=== PATIENT | female | born 2005 | race Caucasian/White ===

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

== ENCOUNTER 2024-04-24 13:00 | Outpatient (REF) | payer MEDICAID, SELFPAY ==
[2024-04-24 14:04] LABS: Hematocrit 35.9 % (37.0-47.0); Hemoglobin 12.7 g/dl (12.0-16.0); Mean Corpuscular HGB Conc 35.4 g/dl (31.0-35.0); Mean Corpuscular Hemoglobin 30.1 pg (27.0-33.0); Mean Corpuscular Volume 85.1 fL (80.0-98.0); Mean Platelet Volume 10.9 fL (9.4-12.3); Platelet Count 269 X10*3/uL (160-400); Red Blood Count 4.22 X10*6/uL (4.20-5.50); Red Cell Distribution Width 12.2 % (11.0-16.0); White Blood Count 9.6 X10*3/uL (4.8-10.8)
[2024-04-24 14:29] LABS: Anion Gap 12 (12-20); Blood Urea Nitrogen 11 mg/dL (9-16); Calcium 9.7 mg/dL (8.4-10.2); Carbon Dioxide 23 mmol/L (22-29); Chloride 110 mmol/L (96-108); Estimated Glomerular Filt Rate > 60; Glucose Random 82 mg/dL (60-115); Magnesium 1.8 mg/dL (1.6-2.6); Sodium 141 mmol/L (135-145)
[2024-04-24 14:41] LABS: TSH reflex Free T4 1.11 uIU/mL (0.32-4.0)
--- OUTSIDE RECORDS SUMMARY | 2024-04-24 16:48 | XMS_ITS | Clinical Summary ---
Author Organization [facility] Address [address] [place] [address] Care Team Providers Care Main Line Station Engineer Name Role Phone Farrukh Wooten MD Primary Care Provider [phone] Source Comments Please note that some or [...] obtain the minor's consent prior to disclosure.[facility] Allergies No known active allergies Medications [...] 08/20/2021 3:0 0 PM EDT Growth Chart: [facility] (Girls, 2- 20 Years) Plan of Treatment Health Maintenance Due Date Last Done Comments DTaP/TDAP/TD VACCINES (1 - Tdap) 08/04/2011 ADOLESCENT HIV SCREENING 2017 COVID-19 Vaccine ( - 2023-2 5 season) 2023 INFLUENZA (#1) 2023 NIRSEVIMAB VACCINES UNDER 8 MONTHS Aged Out No longer eligible based on patient's age to complete this topic Insurance [facility] MEDICAID Care Teams Main Line Station Engineer Relationship Specialty Start Date End Date Farrukh Wooten MD [address] [place] [phone] PCP - General General Pediatrics 05/14/21
--- OUTSIDE RECORDS SUMMARY | 2024-04-24 16:48 | XMS_ITS | Encounter Summary ---
Author Organization [employer] [facility] Address [address] [facility] 7t [place] [address] Care Team Providers Care Prizer Hand Name Role Phone Liane Silva NP Primary Care Provider [phone] Reason for Visit * Reason Comments Med Refill Encounter Details Date Type Department Care Team ([facility] st Contact Info) Description 02/23/2023 Refill [facility] MEDICINE [address] [place] [address] Liane Silva NP [address] [place] [address] Neck pain Social History Tobacco Use Types [...] documented as of this encounter Care Teams Prizer Hand Relationship Specialty Start Date End Date Liane Silva NP [address] [place] [address] PCP - General Family Medicine 12/08/22 documented as of this encounter
--- OUTSIDE RECORDS SUMMARY | 2024-04-24 16:48 | XMS_ITS | Encounter Summary ---
Author Organization [employer] Address [address] [facility] [facility] [address] 7t [place] [address] Care Team Providers Care Record Librarian Name Role Phone Liane Silva NP Primary Care Provider [phone] Encounter Details Date Type Department Care Team ([facility] st Contact Info) Description 03/30/2024 Telephone [facility] MEDICINE [address] [place] [address] Liane Silva NP [address] [place] [address] Social History Tobacco Use Types Packs/Day Years [...] note were not included. Call returned to [facility] to triage below. Reports all of the [...] site visits > 48hours in advance. Reviewed [facility] hours for Tuesday or to return call [...] become worse Bridger Madrid routed conversation to [facility] Triage Nurse33 minutes ago (9:33 AM) Joshua Valente [facility] Clinical Support (supporting Liane Silva NP)9 [...] documented as of this encounter Care Teams Record Librarian Relationship Specialty Start Date End Date Liane Silva NP [address] [place] [address] PCP - General Family Medicine 12/08/22 documented as of this encounter
--- OUTSIDE RECORDS SUMMARY | 2024-04-24 16:48 | XMS_ITS | Clinical Summary ---
Author Organization [employer] Address [address] [facility] 7t [place] [address] Care Team Providers Care Artists' Model Name Role Phone Liane Silva NP Primary Care Provider [phone] Allergies No known active allergies Medications aspirin-acetamin [...] shoulder pain -seen by rheumatology in 2021. Carding Doubler not certain about arthritis dx. No swollen [...] Type Department Care Team Description 03/30/2024 Telephone [facility] MEDICINE [address] [place] [phone] Liane Silva NP 02/02/2024 3:30 PM EST Office Visit [facility] ADULT DENTAL [address] [place] [address] Kee-Lord, Lupe, DDS TMJ locking (Primary Dx) 02/01/2024 Telephone [facility] ADULT DENTAL [address] [place] [address] Kee-Lord, Lupe, DDS from Last 3 Months [...] T4 (04/24/2024 2:00 PM EDT) Pathologist [facility] TSH reflex Free T4 1.11 0.32 - 4.0 uIU/mL [facility] 04/24/2024 2:00 PM EDT 04/24/2024 2:00 PM EDT us Generic External Data Provider LAB BLOOD ORDERAB LES Final Result [facility] [address] [place] [phone] * (ABNORMAL) CBC (04/24/2024 2:00 PM EDT) Pathologist [facility] White Blood Count 9.6 4.8 - 10.8 X10*3/uL [facility] Red Blood Count 4.22 4.20 - 5.50 X10*6/uL [facility] Hemoglobin 12.7 12.0 - 16.0 g/dl [facility] Hematocrit 35.9(L) 37.0 - 47.0 % [facility] Mean Corpuscular Volume 85.1 80.0 - 98.0 fL [facility] Mean Corpuscular Hemoglobin 30.1 27.0 - 33.0 pg [facility] Mean Corpuscular HGB Conc 35.4(H) 31.0 - 35.0 g/dl [facility] Red Cell Distribution Width 12.2 11.0 - 16.0 % [facility] Platelet Count 269 160 - 400 X10*3/uL [facility] Mean Platelet Volume 10.9 9.4 - 12.3 fL [facility] NRBC Pct Auto 0.0 0.0 - 0.2 /100WBC [facility] NRBC Abs Auto 0.000 0.0 - 0.012 X10*3/uL [facility] 04/24/2024 2:00 PM EDT 04/24/2024 2:00 PM EDT Generic External Data Provider LAB BLOOD ORDERAB LES Final Result Performing Organization Address [facility] Co de Phone Number [facility] [address] [place] [phone] * Magnesium (04/24/2024 2:00 PM EDT) Pathologist [facility] Magnesium 1.8 1.6 - 2.6 mg/dL [facility] 04/24/2024 2:00 PM EDT 04/24/2024 2:00 PM EDT Generic External Data Provider LAB BLOOD ORDERAB LES Final Result Performing Organization Address [facility] de Phone Number [facility] [address] [place] [phone] * (ABNORMAL) Basic Metabolic Panel (04/24/2024 2:00 PM EDT) Pathologist [facility] Sodium 141 135 - 145 mmol/L [facility] Potassium 4.0 3.3 - 5.1 mmol/L [facility] Chloride 110(H) 96 - 108 mmol/L [facility] Carbon Dioxide 23 22 - 29 mmol/L [facility] Anion Gap 12 12 - 20 [facility] Urea Nitrogen (BUN) 11 9 - 16 mg/dL [facility] Creatinine, Serum 0.61 0.5 - 1.4 mg/dL [facility] Estimated Glomerular Filt Rate >60 [facility] Comment:Chronic Kidney Disea se: Estimated GFR < 60 mL/min/1.40k5Rlrmop Kidney Disease: Estimated GFR < 15 mL/min/1.73m2 Glucose 82 60 - 115 mg/dL [facility] Calcium 9.7 8.4 - 10.2 mg/dL [facility] 04/24/2024 2:00 PM EDT 04/24/2024 2:00 PM EDT us Generic External Data Provider LAB BLOOD ORDERAB LES Final Result Performing Organization Address City/State/[facility] Co de Phone Number [facility] [address] [place] [address] [phone] from Last 3 Months Insurance [facility] STAND CHILD D[facility]AL-[facility] MEDICAID STAND CHILD Care Teams Artists' Model Relationship Specialty Start Date End Date Liane Silva NP [address] [place] [address] PCP - General Family Medicine 12/08/22
--- OUTSIDE RECORDS SUMMARY | 2024-04-24 16:48 | XMS_ITS | Encounter Summary ---
Author Organization [employer] Address [address] 7t [place] [address] Care Team Providers Care Executive Director Name Role Phone Liane Silva NP Primary Care Provider [phone] Encounter Details Date Type Department Care Team ([facility] st Contact Info) Description 01/26/2023 Abstract [facility] MEDICINE [address] [place] [address] Liane Silva NP [address] [place] [address] Social History Tobacco Use Types Packs/Day Years [...] documented as of this encounter Care Teams Executive Director Relationship Specialty Start Date End Date Liane Silva NP [address] [place] [address] PCP - General Family Medicine 12/08/22 documented as of this encounter
--- OUTSIDE RECORDS SUMMARY | 2024-04-24 16:48 | XMS_ITS | Encounter Summary ---
Author Organization [employer] Address [address] [place] [address] Care Team Providers Care Comic Book Writer Name Role Phone Liane Silva NP Primary Care Provider [phone] Encounter Details Date Type Department Care Team ([facility] st Contact Info) Description 02/10/2023 Abstract [facility] ADULT DENTAL [address] [place] [address] Brian Jones, DMD [address] [place] [address] Social History Tobacco Use Types Packs/Day Years [...] documented as of this encounter Care Teams Comic Book Writer Relationship Specialty Start Date End Date Liane Silva NP [address] [place] [address] PCP - General Family Medicine 12/08/22 documented as of this encounter
--- OUTSIDE RECORDS SUMMARY | 2024-04-24 16:48 | XMS_ITS | Encounter Summary ---
Author Organization [employer] [facility] Address [address] [facility] 7t [place] [address] Care Team Providers Care Sorter Pricer Name Role Phone Liane Silva NP Primary Care Provider [phone] Reason for Visit * Reason Onset Date Comments Nurse Triage 12/17/2022 Encounter Details Date Type Department Care Team ([facility] st Contact Info) Description 12/17/2022 Telephone [facility] MEDICINE [address] [place] [address] Liane Silva NP [address] [place] [address] Nurse Triage Social History Tobacco Use Types [...] Called pt. No answer. Left message on [phone] to please call back [facility] nurses at [phone]. RE: Neck pain. Called alternate number [phone]. Mother answered phone. Pt. Suffers from migraines but, on the back of pt. Neck is hurting on the back of her neck. Pt. Has not done any neck stretching exercises and Tylenol and Motrin not helping. * Telephone Encounter - Estefany Farley - 12/17/2022 2:05 PM EDT Tc from [place] returning call and requesting a call back. * Telephone Encounter - Daria Spann RN - 12/17/2022 1:52 PM EDT Call returned to Joshua Madrid for triage. No answer LVM to return call to [facility] triage line [phone]. Mom not on HIPAA. * Telephone Encounter [...] documented as of this encounter Care Teams Sorter Pricer Relationship Specialty Start Date End Date Appram, Liane, RESIDENTIAL FINISH CARPENTER [address] [place] [address] PCP - General Family Medicine 12/08/22 documented as of this encounter
--- OUTSIDE RECORDS SUMMARY | 2024-04-24 16:48 | XMS_ITS | Encounter Summary ---
Author Organization [employer] Address [address] [facility] 7[address] [place] [address] Care Team Providers Care Physician Office Clin Asst Name Role Phone Liane Silva NP Primary Care Provider [phone] Encounter Details Date Type Department Care Team ([facility] st Contact Info) Description 02/24/2023 Abstract [facility] MEDICINE [address] [place] [address] Liane Silva NP [address] [place] [address] Social History Tobacco Use Types Packs/Day Years [...] documented as of this encounter Care Teams Physician Office Clin Asst Relationship Specialty Start Date End Date Liane Silva NP [address] [place] [address] PCP - General Family Medicine 12/08/22 documented as of this encounter
--- OUTSIDE RECORDS SUMMARY | 2024-04-24 16:48 | XMS_ITS | Encounter Summary ---
Author Organization [employer] Address [address] [place] [address] Care Team Providers Care White Shoe Ragger Name Role Phone Liane Silva NP Primary Care Provider [phone] Encounter Details Date Type Department Care Team ([facility] st Contact Info) Description 02/24/2023 Abstract [facility] MEDICINE [address] [place] [address] Liane Silva NP [address] [place] [address] Social History Tobacco Use Types Packs/Day Years [...] documented as of this encounter Care Teams White Shoe Ragger Relationship Specialty Start Date End Date Liane Silva NP [address] [place] [address] PCP - General Family Medicine 12/08/22 documented as of this encounter
[2024-04-30 23:44] LABS: Metanephrine, Free <25 pg/mL (<=57); Normetanephrines, Free 72 pg/mL (<=148); Total Metanephrine, Free 72 pg/mL (<=205)
== END 2024-04-24 13:01 | disposition home or self-care (01) ==
LOC: HO.LAB 13:00
PROVIDERS: PCP Nurse Practitioner; Visit Provider Internal Medicine Cardiovascular Disease
DX: R00.2 Palpitations (principal)
CPT/HCPCS: 36415; 80048; 83735; 83835; 84443; 85027; 93005; 99202

== ENCOUNTER 2024-04-24 13:00 | Outpatient (AMB) | payer MEDICAID, SELFPAY ==
[2024-04-24 13:09] VITALS: BP 110/70; PULSE 93; BMI 32.7
--- NOTE | 2024-04-24 13:09 | MHC.OFFVIS ---
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 Patient was 18-year-old female who has for many he has been having symptoms of palpitations. She says she gets symptoms about 3 times a week when she starts feeling skipped heartbeats. This is associated with dizziness and sometimes shortness of breath. She gets anxious and sometimes gets more symptoms. She had a Holter monitor few years ago and was told that she did not have any significant arrhythmias although I do not have a copy of those reports. Patient also says she has been experiencing chest pain which is sharp stinging chest pain Stepan further inquiry says that she feels this sharp stinging chest pain followed by rapid heart rate or irregular heartbeat and she gets anxious and then sometimes gets more shortness of breath and chest discomfort with it. Has no clear triggering factors except for when she is working and sometimes busy at work should get the symptoms. She says this symptoms at any times including with exertion or at rest. She was no symptoms of orthopnea, PND, leg edema. No actual syncopal episodes. She is currently not on medications. She denies any significant caffeine, alcohol, smoking or any other drug use. [facility] Medical History Rheumatoid arthritis Family History Father No problems noted. Mother No problems noted. Social History Patient Tobacco Use Status: Never used Tobacco Review of Systems Const Denies chills, Denies daytime sleepiness, Denies fatigue, Denies fever(s), Denies frequent falls, Denies poor appetite, Denies snoring, Denies stops breathing during sleep, Denies weakness, Denies weight gain and Denies weight loss Eyes Denies loss of vision ENT Denies dizziness and Denies hearing loss Card Reports chest pain, Denies claudication, Denies leg edema, Denies lightheadedness, Reports palpitations, Denies dyspnea, Denies dyspnea on exertion and Denies orthopnea Resp Denies cough, Denies excessive phlegm production, Denies dyspnea, Denies dyspnea on exertion, Denies snoring and Denies wheezing GI Denies abdominal pain, Denies hematochezia, Denies change in bowel habits, Denies nausea and Denies vomiting Denies urinary frequency and Denies dysuria Musc Denies arthralgias, Denies muscle weakness, Denies numbness and Denies other (frequent falls) Skin/Breast Denies nail changes and Denies rash Neuro Denies Abnormal speech present, Denies dizziness, Denies frequent falls, Denies loss of vision, Denies memory loss, Denies numbness and Denies weakness Psych Denies depression and Denies memory loss Endo Denies fatigue and Reports palpitations Brandon/Lymph Reports easy bruising and Reports other (anemia) Aller/Immun Denies wheezing Physical Exam Vital Signs: Last Vital Signs Pulse 93 04/24/24 13:09 BP 110/70 04/24/24 13:09 BMI result Body Mass Index 32.7 Const General: cooperative, comfortable, no acute distress, alert, awake and Physically active Nutritional Appearance: overweight Orientation/consciousness: patient oriented x3 Limitations: no limitations HEENT Head: Yes normocephalic and Yes atraumatic Neck Neck: Yes trachea midline, Yes supple and Yes no JVD Resp Effort & Inspection: normal respiratory effort Auscultation: clear to auscultation bilaterally Cardio Jugular venous distension: no JVD Palpation: normal PMI Rate: regular rate Rhythm: regular rhythm Heart sounds: S1 normal heart sound present, S2 normal heart sound present, no click, no gallops, no murmurs and no rubs GI Auscultation: normal bowel sounds Skin General skin exam: no rashes or lesions noted Neuro General: patient oriented x3, no focal motor deficits and other (Some tremors noted) Speech: No Abnormal speech present Extrem General: Yes no clubbing, cyanosis or edema Psych Appearance: grossly normal Affect: Anxious affect present Office Procedures EKG Details: EKG shows normal sinus rhythm with nonspecific ST changes with no QT prolongation pre-excitation. [id number], Complete Assessment & Plan Assessment & Plan (1) Palpitations: Code(s): R00.2 - Palpitations Category: Medical Plan: Symptoms of palpitation which are most concerning and present for many years. Symptoms sound like she might be having extra systoles such as PVCs and PACs which are highly symptomatic. Her chest pain syndrome also seems to be in association with palpitations. I discussed with her that it is extremely unlikely for her to have any coronary artery disease or myocardial ischemia. 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 It is possible that this might be related to stress/anxiety although she declines being anxious. Will check for baseline hormonal imbalance with TSH and/or metanephrine levels. Also check baseline labs. Would suggest a 30 day event monitor to assess for her symptoms and correlate with the symptoms she has been getting if she was having any significant arrhythmias. Also obtain echocardiogram to evaluate for structure of the heart. Further treatment based on the findings. She was advised to avoid stimulants. Stress mitigation strategies discussed. Will follow up in the clinic in 2 months time, sooner p.r.n.. Thank you for allowing me to partake in his care Orders: Orders Magnesium Today R00.2 - Palpitations Complete Blood Count no Diff Today R00.2 - Palpitations ECG 30 day event monitor Today R00.2 - Palpitations Basic Metabolic Panel Today R00.2 - Palpitations TSH reflex Free T4 Today R00.2 - Palpitations Metanephrines, Plasma Today R00.2 - Palpitations CA echo transthoracic complete Today R00.2 - Palpitations Coding Level of Care Code New Pt Level 4 (69881) Complex EM visit Add On G2211 Diagnoses Palpitations R00.2 CPT Codes EKG - CPT: 97703-[id number], Complete ([id number])
--- OUTSIDE RECORDS SUMMARY | 2024-04-24 15:43 | XMS_ITS | Clinical Summary ---
Author Organization [employer] Address [address] [facility] 7[address] [place] [address] Care Team Providers Care Professor Of Astronomy Name Role Phone Liane Silva NP Primary Care Provider [phone] Allergies No known active allergies Medications aspirin-acetamin ophen-caffeine (Excedrin Migraine) 250-250-65 MG tablet Take by mouth. Activ e multivitamin (Theragran) tabletIndication s:Encounter for routine child health examination without abnormal findings 1 tab by oral route daily 90 tablet 3 3 Active albuterol 108 (90 Base) MCG/ACT inhalerIndicatio ns:Mild intermittent asthma without complication 2-4 puff by Inhalation route every 4 hours prn ;administer with spacer 18 g 2 3 Active Additional Information Patient not taking.Reported on 04/22/2023 Diclofenac Sodium 1 % gelIndications:N saravanan pain APPLY 1 G TOPICALLY IF NEEDED IN THE MORNING, AT NOON, AND AT BEDTIME (PAIN). 100 g 2 4 Active Additional Information Patient not taking.Reported on 04/22/2023 SUMAtriptan (Imitrex) 25 MG tabletIndication s:Migraine without aura, not intractable, without status migrainosus TAKE 1 TABLET BY MOUTH 1 TIME IF NEEDED FOR MIGRAINE FOR UP TO 9 DAYS. MAY REPEAT DOSE ONCE IN 2 HOURS IF NO RELIEF. DO NOT EXCEED 2 DOSES IN 24 HOURS. 9 tablet 4 Active hydrOXYzine HCl (Atarax) 25 MG tabletIndication s:Chest pain, unspecified type Take 1 tablet (25 mg) by mouth every 8 (eight) hours if needed for anxiety. 90 tablet 4 Active baclofen (Lioresal) 10 MG tabletIndication s:Neck pain, chronic Take one tablet TID PRN 30 tablet 4 Active naproxen (Naprosyn) 500 MG tabletIndication s:Migraine without aura, not intractable, without status migrainosus TAKE 1 TABLET BY MOUTH TWICE A DAY 60 tablet 4 Active Active Problems Problem Noted Date Diagnosed Date Atypical odontalgia 01/05/2024 Chest pain 07/23/2023 Assessment & Plan (07/24/2023 10:01 PM EDT): -low threshold for emergent interventions today as patient is asymptomatic -negative full cardiology work-up 2 years ago -likely related to anxiety based on patient report and medical history -will trial hydroxyzine -consider treatment with PPI for silent GERD if no results achieved with hydroxyzine -continued monitor advised with specific attention to events preceding and duration of pain -advised go to ED with sudden severe or unexplained chest pain that lasts more than a few minutes; sudden sever upper back, neck, or stomach pain. -follow-up 6 weeks Pre-op examination 04/01/2023 Assessment & Plan (04/01/2023 4:37 PM EST): -H&P completed -The incidence of perioperative cardiovascular events varies according to the patient risk profile, patient's functional capacity, and risk of the proposed surgery. Active cardiac conditions that are contraindications to elective surgery: none Cardiac risk by patient profile (RCRI): very low Functional capacity = 1 METS. The patient reports being able to walk up 1 one flight of stairs and 2 blocks without stopping. -Medication list reviewed with patient and up to date. -Hold aspirin and NSAIDs 5 days before surgery Patient was seen for pre-operative evaluation. Patient reports no symptoms of CP at rest or with exertion, dyspnea at rest or with exertion, PND, LE edema, claudication, or palpitations. Patient has no hx of ischemic heart disease, CHF, CVD, diabetes, recent anticoagulant or antithrombotic use, person or family hx of coagulopathy. Patient reports no history of stress test, cardiac cath or coronary revascularization. Patient has no apparent contraindications for scheduled surgery. This patient is at no risk for a low risk procedure. The patient is at acceptable risk for the proposed procedure. Patient may proceed to the O.R. without further testing ? CLEAR.? Normal oral exam 01/27/2023 Assessment & Plan (01/27/2023 5:04 PM EST): -flu vaccine given today -refused STI screen as she is not sexually active -agreeable to HIV and Hepatitis screening Neck and shoulder pain 01/27/2023 Assessment & Plan (01/27/2023 5:09 PM EST): -question its relation to idiopathic juvenile arthritis vs. Cervical radiculopathy -cervical x-ray ordered -rx for topical diclofenac gel sent to pharmacy -gently stretching advised -will f/u following x-ray results -RTC if symptoms worsen Mild intermittent asthma without complication Assessment & Plan (01/27/2023 3:38 PM EST): -stable at this time -medication refill provided for prn use Migraine without aura, not i ntractable, without status migrainosus 05/04/2022 Assessment & Plan (07/24/2023 10:01 PM EDT): -patient advised to discontinue use of topamax given its lack of effects -will start amitriptyline 10 mg daily for prophylaxis -prescription for sumitriptan and naproxen sent to pharmacy for abortive use -encouraged to monitor for headache triggers and avoid them -advised healthy diet and 30 min daily of moderate intensity exercise, gentle yoga, meditation, and minimum 8 hours sleep nightly -headache red flags discussed: report to ED immediately if headache characteristics intensify within 5 mins of onset, if associated with intense nausea and vomiting or confusion -follow-up 6 weeks Assessment & Plan (01/27/2023 4:55 PM EST): -currently taking Excedrin daily with no relief -topamax refilled -advised to keep headache diary, avoid caffeine, exercise daily, and increase fluid intake -f/u 1 month 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 No swollen joints noted today -inflammatory markers ordered -will consider return to rheumatology based on lab results Scoliosis deformity of spine 02/15/2017 Overview (05/06/2022): 13 degree max curve in past Hyperlipidemia 09/01/2016 Obesity 06/01/2011 Assessment & Plan (01/27/2023 5:06 PM EST): -Healthy diet and exercise teaching completed: Eat a variety of fruit and vegetables, whole grains such as whole-wheat flour, bulgur (cracked wheat), oatmeal, and brown rice. Intake protein from beans, nuts, fish, and lean meats. Eat low-fat or fat- free dairy products. Limit highly processed foods such as hot dogs, sandwich meat, etc. Engage in minimum of 150 min of moderate intensity exercise weekly -lipid panel ordered Resolved Problems Problem Noted Date Diagnosed Date Resolved Date Mild persistent asthma 04/29/202205/04 Encounters Date Type Department Care Team Description 03/30/[address] [facility] MEDICINE [address] [place] [address] [phone] Liane Silva NP 02/02/2024 3:30 PM EST Office Visit [facility] ADULT DENTAL [address] [place] [phone] Kee-Lord, Lupe, DDS TMJ locking (Primary Dx) 02/01/[address] [facility] ADULT DENTAL [address] [place] [address] Kee-Lord, Lupe, DDS from Last 3 Months Immunizations Name Administration Dates Next Due DTaP 09/02/2008, 6,04/12/2005,12/21,2004 HPV 9-Valent 02/17/2016,08/26/2015 Hep A, ped/adol, 2 dose 05/21/2008,09/13/2005 Hep B, Adolescent or Pediatric 2004,2004 Hep B, adult 04/12/2005 Hib (HbOC) 11/09/2005,2004,2004 IPV 09/02/2008, 6,2004,10/20 Influenza Whole 12/19/2018 Influenza injectable quadriv alent preservative free 01/26/2023,05/04/2022,04/29/2021,01/20,12/19/2018,11/29/2017,02/17/2016 MMR 09/02/2008,09/13/2005 Meningococcal MCV4P ACYW-135 04/29/2021,08/26/19 Pneumococcal Conjugate PCV 7 11/09/2005, 09/13/2005,04/12/2005,10/20 Tdap 08/26/2015 Varicella 09/02/2008,09/13/2005 Family History Medical History Relation Name Comments Diabetes Brother Hyperlipidemia Mother Relation Name Status Comments Brother Mother Social History Tobacco Use Types Packs/Day Years Used Date Smoking Tobacco: Never Passive Smoke Exposure: Never Smokeless Tobacco: Never Tobacco Cessation:Counseling Given: Not Answered Alcohol Use Standard Drinks/Week Comments Never 0 (1 standard drink = 0.6 oz pur e alcohol) Depression Answer Date Recorded Patient Health Questionnaire-9 Score 0 01/26/2023 Patient Health Questionnaire-9 Score 0 01/26/2023 Last PHQ-9: Questionnaire Data Not on file 1 03/29/2022 Housing Stability Answer Date Recorded What is your housing situation today? I have maryankristen cifuentes 01/19/[address] you li ve. Do you have problems with any of the following? None of the above 01/19/2023 Food Insecurity Answer Date Recorded Within the past 12 months, y ou worried that your food would run out before you got money to buy more: Never True 01/19/2023 Within the past 12 months,th e food you bought just didn't last and you didn't have enough money to get more: Never True 07/2022 Transportation Answer Date Recorded In the past 12 months, has l ack of transportation kept you from medical appts, meetings, work or from getting things needed for daily living? No 01/19/2023 Utilities Answer Date Recorded In the past 12 months, has t he electric, gas, oil or water company threatened to shut off services in your home? No 01/19/2023 Depression Answer Date Recorded Patient Health Questionnaire-2 Score 0 01/26/2023 Comments No Sex and Gender Information Value Date Recorded Sex Assigned at Female 12/14/2021 10:20 AM EDT Legal Sex Female 10:20 AM EDT Gender Identity Female 12/14/2021 10:20 AM EDT Sexual Orientation Straight 12/14/2021 10 :20 AM EDT Last Filed Vital Signs Vital Sign Reading Time Taken Comments Blood Pressure 118/68 01/05/2024 1:12 PM EST Pulse 110 09/30/2023 3:24 PM EDT Temperature 36.8 ??C (98.3 ??F) 04/22/2023 3:20 PM ES T Respiratory Rate 21 09/30/2023 3:24 PM EDT Oxygen Saturation 98% 09/30/2023 3:24 PM EDT Inhaled Oxygen Concentration - - Weight 75.2 kg (165 lb 12.8 oz) 09/30/2023 3:24 PM EDT Height 152.4 cm (5') 04/22/2023 3:20 PM EST Body Mass Index 32.38 04/22/2023 3:20 PM EST Plan of Treatment Health Maintenance Due Date Last Done Comments Chlamydia and Gonorrhea Screening 2004 HIV Screening 2004 Alcohol/Substance Use Screening 2016 Family Planning (PISQ) 08/04/2019 Hepatitis C Screening 2022 Dental Prophylaxis 01/02/2023 07/01/2022, 1 , 06/09/2020, Additional history exists Pneumococcal Vaccine: Pediatrics (0 to 5 Years) and At-Risk Patients (6 to 49) Years) (1 of 2 - PCV) 08/04/2023 11/09/2005, 09/13/2005, 04/12/2005, Additional history exists COVID-19 Vaccine (1 - season) 2023 Influenza Vaccine (#1) 2023 , 05/04/2022, 04/29/2021, Additional history exists Depression Screening 01/27/2024 01/26/2023, 01/27/20 23 SDOH Screening 01/27/2024 01/26/2023 Dental Oral Exam 07/05/2024 01/05/2024, , 12/14/2021, Additional history exists Dental X-Ray: Bitewings 01/05/2025 01/05/20 24, 12/14/2021, 06/09/2020, Additional history exists Tobacco Screening 02/01/2025 02/02/2024 DTaP/Tdap/Td Vaccines (7 - Td or Tdap) 08/25/2025 08/26/2015, 09/02/2008, 11/09/2005, Additional history exists Dental X-Ray: Full Mouth 01/05/2027 024, 11/11/2023, 06/28/2013 Zoster Vaccines (1 of 2) 2054 RSV Patients and Patients Aged 60 years or older (1 - 1-dose 75+ series) 08/04/2079 Hepatitis B Vaccines Completed 04/12/2005, 2004, 2004 HIB Vaccines Completed 11/09/2005, 08/2004, 2004 Hepatitis A Vaccines Completed 05/21/2008, 09/14/19 IPV Vaccines Completed 09/02/2008, 03/18, 2004, Additional history exists MMR Vaccines Completed 09/02/2008, 09/13/2005 Varicella Vaccines Completed 09/02/2008, 09/13/2005 HPV Vaccines Completed 02/17/2016, 08/26/2015 Meningococcal Vaccine Completed 04/29/2021, 016 Fluoride Varnish Discontinued 07/01/2022, , 06/09/2020, Additional history exists RSV under 20 months Aged Out No longe r eligible based on patient's age to complete this topic Rotavirus Vaccines Aged Out No longer eligible based on patient's age to complete this topic Procedures Procedure Name Priority Date/Time Associated Diagnosis Comments TSH W/REFLEX TO FT4 Routine 04/24/2024 2 :00 PM EDT MAGNESIUM Routine 04/24/2024 2:00 PM EDT BASIC METABOLIC PANEL Routine 04/24/2024 2:00 PM EDT CBC Routine 04/24/2024 2:00 PM EDT CASE PRESENTATION, DETAILED AND EXTENSIVE TREATMENT PLANNING Routine 02/02/2024 3:30 PM EST TMJ locking Max OCCLUSAL GUARD - HARD APPLIANCE, FULL ARCH Routine 02/02/2024 3:30 PM EST TMJ locking INTRAORAL - COMPLETE SERIES OF RADIOGRAPHIC IMAGES Routine 01/05/2024 1:00 PM EST PERIODIC ORAL EVALUATION - ESTABLISHED PATIENT Routine 01/05/2024 1:00 PM EST Full PROPHYLAXIS - ADULT Routine 07/01/2022 1:00 PM EDT TOPICAL APPLICATION OF FLUORIDE VARNISH Routine 07/01/2022 1:00 PM EDT from Last 3 Months or Most Recently Relevant to Health Maintenance Results * TSH with Reflex to Free T4 (04/24/2024 2:00 PM EDT) Pathologist [facility] TSH reflex Free T4 1.11 0.32 - 4.0 uIU/mL [facility] 04/24/2024 2:00 PM EDT 04/24/2024 2:00 PM EDT us Generic External Data Provider LAB BLOOD ORDERAB LES Final Result [facility] [address] [place] [phone] * (ABNORMAL) CBC (04/24/2024 2:00 PM EDT) Pathologist [facility] White Blood Count 9.6 4.8 - 10.8 X10*3/uL [facility] Red Blood Count 4.22 4.20 - 5.50 X10*6/uL [facility] Hemoglobin 12.7 12.0 - 16.0 g/dl [facility] Hematocrit 35.9(L) 37.0 - 47.0 % [facility] Mean Corpuscular Volume 85.1 80.0 - 98.0 fL [facility] Mean Corpuscular Hemoglobin 30.1 27.0 - 33.0 pg [facility] Mean Corpuscular HGB Conc 35.4(H) 31.0 - 35.0 g/dl [facility] Red Cell Distribution Width 12.2 11.0 - 16.0 % [facility] Platelet Count 269 160 - 400 X10*3/uL [facility] Mean Platelet Volume 10.9 9.4 - 12.3 fL [facility] NRBC Pct Auto 0.0 0.0 - 0.2 /100WBC [facility] NRBC Abs Auto 0.000 0.0 - 0.012 X10*3/uL [facility] 04/24/2024 2:00 PM EDT 04/24/2024 2:00 PM EDT Generic External Data Provider LAB BLOOD ORDERAB LES Final Result Performing Organization Address [facility] Co de Phone Number [facility] [address] [place] [phone] * Magnesium (04/24/2024 2:00 PM EDT) Pathologist [facility] Magnesium 1.8 1.6 - 2.6 mg/dL [facility] 04/24/2024 2:00 PM EDT 04/24/2024 2:00 PM EDT Generic External Data Provider LAB BLOOD ORDERAB LES Final Result Performing Organization Address [facility] de Phone Number [facility] [address] [place] [phone] * (ABNORMAL) Basic Metabolic Panel (04/24/2024 2:00 PM EDT) Pathologist [facility] Sodium 141 135 - 145 mmol/L [facility] Potassium 4.0 3.3 - 5.1 mmol/L [facility] Chloride 110(H) 96 - 108 mmol/L [facility] Carbon Dioxide 23 22 - 29 mmol/L [facility] Anion Gap 12 12 - 20 [facility] Urea Nitrogen (BUN) 11 9 - 16 mg/dL [facility] Creatinine, Serum 0.61 0.5 - 1.4 mg/dL [facility] Estimated Glomerular Filt Rate >60 [facility] Comment:Chronic Kidney Disea se: Estimated GFR < 60 mL/min/1.99f7Cpnffx Kidney Disease: Estimated GFR < 15 mL/min/1.73m2 Glucose 82 60 - 115 mg/dL [facility] Calcium 9.7 8.4 - 10.2 mg/dL [facility] 04/24/2024 2:00 PM EDT 04/24/2024 2:00 PM EDT us Generic External Data Provider LAB BLOOD ORDERAB LES Final Result Performing Organization Address City/State/[facility] Co de Phone Number [facility] [address] [place] [address] [phone] from Last 3 Months Insurance [facility] ST[facility] CHILD D[facility]AL-[facility] MEDICAID STAND CHILD Care Teams Professor Of Astronomy Relationship Specialty Start Date End Date Liane Silva NP [address] [place] [address] PCP - General Family Medicine 12/08/22
--- OUTSIDE RECORDS SUMMARY | 2024-04-24 15:43 | XMS_ITS | Encounter Summary ---
Author Organization [employer] Address [address] [place] [address] Care Team Providers Care Convertible Power Shovel Operator Name Role Phone Liane Silva NP Primary Care Provider [phone] Encounter Details Date Type Department Care Team ([facility] st Contact Info) Description 02/10/2023 Abstract [facility]ULT [facility] [address] [place] [address] Brian Jones, DMD [address] [place] [address] Social History Tobacco Use Types Packs/Day Years Used Date Smoking Tobacco: Never Passive Smoke Exposure: Never Smokeless Tobacco: Never Alcohol Use Standard Drinks/Week Comments Never 0 (1 standard drink = 0.6 oz pur e alcohol) Depression Answer Date Recorded Patient Health Questionnaire-9 Score 0 01/26/2023 Patient Health Questionnaire-9 Score 0 01/26/2023 Last PHQ-9: Questionnaire Data Not on file 1 03/29/2022 Housing Stability Answer Date Recorded What is your housing situation today? I have maryan cifuentes 01/19/[address] you [...] Patient Health Questionnaire-2 Score 0 01/26/2023 Comments Unknown Sex and Gender Information Value Date Recorded Sex Assigned at Female 12/14/2021 10:20 AM EDT Legal Sex Female 10:20 AM EDT Gender Identity Female 12/14/2021 10:20 AM EDT Sexual Orientation Straight 12/14/2021 10 :20 AM EDT documented as of this encounter Plan of Treatment Not on file documented as of this encounter Visit Diagnoses Not on filedocumented in this encounter Additional Health Concerns Assessment Noted Time PHQ-9 Depression Total Score: 0 01/27/20 3:01 PM EST documented as of this encounter Care Teams Convertible Power Shovel Operator Relationship Specialty Start Date End Date Liane Silva NP [address] [place] [phone] PCP - General Family Medicine 12/08/22 documented as of this encounter
--- OUTSIDE RECORDS SUMMARY | 2024-04-24 15:43 | XMS_ITS | Encounter Summary ---
Author Organization [employer] Address [address] [place] [address] Care Team Providers Care Ambulance Paramedic Name Role Phone Liane Silva NP Primary Care Provider [phone] Encounter Details Date Type Department Care Team ([facility] st Contact Info) Description 02/24/[address] [facility] MEDICINE [address] [place] [address] Liane Silva NP [address] [place] [address] Social History Tobacco Use Types Packs/Day Years [...] documented as of this encounter Care Teams Ambulance Paramedic Relationship Specialty Start Date End Date Liane Silva NP [address] [place] [phone] PCP - General Family Medicine 12/08/22 documented as of this encounter
--- OUTSIDE RECORDS SUMMARY | 2024-04-24 15:43 | XMS_ITS | Encounter Summary ---
Author Organization [employer] Address [address] [place] [address] Care Team Providers Care Cost Report Clerk Name Role Phone Liane Silva NP Primary Care Provider [phone] Encounter Details Date Type Department Care Team ([facility] st Contact Info) Description 01/26/2023 Abstract [facility] MEDICINE [address] [place] [address] Liane Silva NP [address] [place] [address] Social History Tobacco Use Types Packs/Day Years [...] documented as of this encounter Care Teams Cost Report Clerk Relationship Specialty Start Date End Date Liane Silva NP [address] [place] [phone] PCP - General Family Medicine 12/08/22 documented as of this encounter
--- OUTSIDE RECORDS SUMMARY | 2024-04-24 15:43 | XMS_ITS | Encounter Summary ---
Author Organization [facility] Address [address] [facility] [address] [place] [address] Care Team Providers Care Electrical Accessories I Assembler Name Role Phone Liane Silva NP Primary Care Provider [phone] Reason for Visit * Reason Comments Med Refill Encounter Details Date Type Department Care Team ([facility] st Contact Info) Description 02/23/2023 Refill [facility] MEDICINE [address] [place] [address] Liane Silva NP [address] [place] [address] Neck pain Social History Tobacco Use Types Packs/Day Years [...] AM EDT documented as of this encounter Miscellaneous Notes * Telephone Encounter - Liane Silva NP - 02/23/2023 4:29 PM EST Approving, but needs appt for additional refills. documented in this encounter Plan of Treatment Not on file documented as of this encounter Visit Diagnoses Diagnosis Neck pain Cervicalgia documented in this encounter Additional Health Concerns Assessment Noted Time PHQ-9 Depression Total Score: 0 01/27/20 3:01 PM EST documented as of this encounter Care Teams Electrical Accessories I Assembler Relationship Specialty Start Date End Date Liane Silva NP [address] [place] [phone] PCP - General Family Medicine 12/08/22 documented as of this encounter
--- OUTSIDE RECORDS SUMMARY | 2024-04-24 15:43 | XMS_ITS | Clinical Summary ---
Author Organization [facility] Address [address] [place] [address] Care Team Providers Care Intermodal Owner Operator Truck Driver Name Role Phone Farrukh Wooten MD Primary Care Provider [phone] Source Comments Please note that some or all of the patient's information could have additional privacy protections. State laws allow health care providers to render certain types of treatment to minors without parental consent. Please do not assume that this information can be shared solely by obtaining just the consent of the patient's parent/guardian. Please determine if all or part of the patient's care was rendered without parent/guardian involvement. And, if so, obtain the minor's consent prior to disclosure.[facility] Allergies No known active allergies Medications aspirin-acetami nophen-caffeine (EXCEDRIN MIGRAINE) 250-250-65 mg per tablet Take by mouth Activ e FLOVENT HFA 110 mcg/actuation inhaler INHALE 2 PUFFS BY MOUTH DAILY WITH AEROCHAMBER 2 Active OPTICHAMBER EDUAR [facility] Spacer DIRECTED 2 Active ibuprofen (MOTRIN) 200 MG tablet Take 400 mg by mouth every 6 (six) hours as needed for Pain Active Active Problems No known active problems Family History Medical History Relation Name Comments Chronic fatigue Brother Diabetes type I Brother Fibromyalgia Maternal Grandmother Psoriasis Other mat great uncle Dermatomyositis Neg Hx Juvenile idiopathic arthritis Neg Hx Lupus Neg Hx Rheum arthritis Neg Hx Scleroderma Neg Hx Sjogren's syndrome Neg Hx Relation Name Status Comments Brother Maternal Grandmother Other mat great uncle Social History Tobacco Use Types Packs/Day Years Used Date Smoking Tobacco: Never Other Needs Answer Date Recorded Anything else about your child you'd like help w ith? Not on file 10/29/2022 Share good news about positive changes: Not on f ile 10/29/2022 Comments No Sex and Gender Information Value Date Recorded Sex Assigned at Not on file Legal Sex Female 4:27 PM EDT Gender Identity Not on file Sexual Orientation Not on file Last Filed Vital Signs Vital Sign Reading Time Taken Comments Blood Pressure 108/71 08/20/2021 3:00 PM EDT Pulse 76 08/20/2021 3:00 PM EDT Temperature - - Respiratory Rate - - Oxygen Saturation - - Inhaled Oxygen Concentration - - Weight 72.2 kg (159 lb 2.8 oz) 08/20/2021 3:00 P M EDT Height 154.1 cm (5' 0.67 ) 08/20/2021 3:00 PM ED T Body Mass Index 30.4 08/20/2021 3:00 PM EDT Body Mass Index Percentile 95.44% 08/20/2021 3:0 0 PM EDT Growth Chart: [facility] (Girls, 2- 20 Years) Plan of Treatment Health Maintenance Due Date Last Done Comments DTaP/TDAP/TD VACCINES (1 - Tdap) 08/04/2011 ADOLESCENT HIV SCREENING 2017 COVID-19 Vaccine ( - 2023-2 5 season) 2023 INFLUENZA (#1) 2023 NIRSEVIMAB VACCINES UNDER 8 MONTHS Aged Out No longer eligible based on patient's age to complete this topic Insurance [facility] MEDICA[facility] Care Teams Intermodal Owner Operator Truck Driver Relationship Specialty Start Date End Date Farrukh Wooten MD [address] [place] [phone] PCP - General General Pediatrics 05/14/21
--- OUTSIDE RECORDS SUMMARY | 2024-04-24 15:43 | XMS_ITS | Encounter Summary ---
Author Organization [employer] Address [address] 7t [place] [address] Care Team Providers Care Coning Machine Operator Name Role Phone Liane Silva NP Primary Care Provider [phone] Encounter Details Date Type Department Care Team ([facility] st Contact Info) Description 03/30/2024 Telephone [facility] MEDICINE [address] [place] [address] Liane Silva NP [address] [place] [address] Social History Tobacco Use Types Packs/Day Years [...] encounter Miscellaneous Notes * Telephone Encounter - Daria Spann RN - 03/30/2024 10:10 AM EST Images from the original note were not included. Call returned to [facility] to triage below. Reports all of the symptoms below are chronic, ongoing since 2023. Per pt has discussed with PCP at past appointments. Pt using OTC pain relievers with no relief of symptoms. Pt advised no soon appts with PCP within 2 weeks. Declined visit for today. No appts on Tuesday (office closed Tuesday for holiday). Unable to book sick on site visits > 48hours in advance. Reviewed [facility] hours for Tuesday or to return call on Tuesday for scheduling. Pt agrees. Multiple (2) protocols were used on this call. Disposition for Call: See in Office or Video Visit within 2 Weeks Protocol Used: Neck Pain or Stiffness (Adult) Protocol-Based Disposition: See in Office or Video Visit within 2 Weeks Video visit offer not recorded Positive Triage Question: * Neck pain is a chronic symptom (recurrent or ongoing AND lasting > 4 weeks) * All higher-acuity triage questions were negative Protocol Used: Back Pain (Adult) Protocol-Based Disposition: See in Office or Video Visit within 2 Weeks Video visit offer not recorded Positive Triage Question: * Back pain is a chronic symptom (recurrent or ongoing AND lasting > 4 weeks) * All higher-acuity triage questions were negative Care Advice Discussed: * Reasons To Call Back - Numbness or weakness occurs - Severe pain not better after taking pain medicines - You become worse Bridger Madrid routed conversation to [facility] Triage Nurse33 minutes ago (9:33 AM) Joshua Valente [facility] Clinical Support (supporting Liane Silva NP)9 hours ago (12:31 AM) I am reaching out because I am concerned about excruciating pain that radiates from my neck its also causing stinging to my left side of my face down to my eye. My legs hurt as-well it???s a crampingsensation along with a burning sensation that takes my lower back to my sides. I would like to get a referral to get an mri I find it hard to work, or go out I haven???t gone a single day without this excruciating pain that also makes me feel dizzy, nauseous, and I have a sensation of vertigo. Onlyrelief I have is if I lay down flat on my bed with neck support, please reach out as soon as you can thank you. documented in this encounter Plan of Treatment Not on file documented as of this encounter Visit Diagnoses Not on filedocumented in this encounter Additional Health Concerns Assessment Noted Time PHQ-9 Depression Total Score: 0 01/27/20 23 3:01 PM EST documented as of this encounter Care Teams Coning Machine Operator Relationship Specialty Start Date End Date Liane Silva NP [address] [place] [phone] PCP - General Family Medicine 12/08/22 documented as of this encounter
--- OUTSIDE RECORDS SUMMARY | 2024-04-24 15:43 | XMS_ITS | Encounter Summary ---
Author Organization [employer] [facility] Address [address] [facility] 7t [place] [address] Care Team Providers Care Artisan Plasterer Name Role Phone Liane Silva NP Primary Care Provider [phone] Reason for Visit * Reason Onset Date Comments Nurse Triage 12/17/2022 Encounter Details Date Type Department Care Team ([facility] st Contact Info) Description 12/17/[address] [facility] MEDICINE [address] [place] [address] Liane Silva NP 230 [place] [address] Nurse Triage Social History Tobacco Use Types Packs/Day Years Used Date Smoking Tobacco: Never Smokeless Tobacco: Never Depression Answer Date Recorded Patient Health Questionnaire-9 Score 1 05/06/2022 Depression Answer Date Recorded Patient Health Questionnaire-2 Score 0 05/06/2022 Comments Unknown Sex and Gender Information Value Date Recorded Sex Assigned at Female 12/14/2021 10:20 AM EDT Legal Sex Female 10:20 AM EDT Gender Identity Female 12/14/2021 10:20 AM EDT Sexual Orientation Straight 12/14/2021 10 :20 AM EDT documented as of this encounter Miscellaneous Notes * Telephone Encounter - Mery Benjamin RN - 12/17/2022 4:52 PM EDT Called pt. Mother back who is on HIPAA. TP appt. Made with Nurse Practioner Liane Silva for 01/26/23 at 245pm. Pt. Will go to walk in as needed for migraine next week at her convenience. See previous note. * Telephone Encounter - Mery Benjamin RN - 12/17/2022 2:23 PM EDT Called pt. No answer. Left message on [phone] to please call back [facility] nurses at [phone]. RE: Neck pain. Called alternate number [phone]. Mother answered phone. Pt. Suffers from migraines but, on the back of pt. Neck is hurting on the back of her neck. Pt. Has not done any neck stretching exercises and Tylenol and Motrin not helping. * Telephone Encounter - Estefany Farley - 12/17/2022 2:05 PM EDT Tc from [place] returning call and requesting a call back. * Telephone Encounter - Daria Spann RN - 12/17/2022 1:52 PM EDT Call returned to Joshua Madrid for triage. No answer LVM to return call to [facility] triage line [phone]. Mom not on HIPAA. * Telephone Encounter - Estefany Farley - 12/17/2022 1:30 PM EDT Symptoms: Neck Pain - Not From Injury, Headache Outcome: Talk to a nurse or provider within 15 minutes Reason: Can't move the neck normally The caller accepted this outcome documented in this encounter Plan of Treatment Not on file documented as of this encounter Visit Diagnoses Not on filedocumented in this encounter Additional Health Concerns Assessment Noted Time PHQ-9 Depression Total Score: 1 05/07/19 1:36 PM EDT documented as of this encounter Care Teams Artisan Plasterer Relationship Specialty Start Date End Date Appram, Liane, FURNACE RELINER [address] [place] [address] PCP - General Family Medicine 12/08/22 documented as of this encounter
--- OUTSIDE RECORDS SUMMARY | 2024-04-24 15:43 | XMS_ITS ---
Author Name [facility] Organization Unknown History of Medication Use Medication Directions Dispensed Refills Start Date End Date Stat us ibuprofen (MOTRIN) 200 MG tablet Take 400 mg by mouth every 6 (six) hours as needed for Pain active Problems Problem Status Onset Date Problem Type Date of Resoluti on Source Arthralgia of multiple joints active EncounterDiagnosisAct [facility] Encounters Encounter Type Encounter Reason Primary Diagnosis Location Date Ambulatory [facility] 08/20/2021
--- OUTSIDE RECORDS SUMMARY | 2024-04-24 15:43 | XMS_ITS | Encounter Summary ---
Author Organization [employer] Address [address] 7t [place] [address] Care Team Providers Care Feather Sawyer Name Role Phone Liane Silva NP Primary Care Provider [phone] Encounter Details Date Type Department Care Team ([facility] st Contact Info) Description 02/24/2023 Abstract [facility] MEDICINE [address] [place] [address] Liane Silva NP [address] [place] [address] Social History Tobacco Use Types Packs/Day Years [...] documented as of this encounter Care Teams Feather Sawyer Relationship Specialty Start Date End Date Liane Silva NP [address] [place] [address] PCP - General Family Medicine 12/08/22 documented as of this encounter
== END 2024-04-24 13:43 | disposition home or self-care (01) ==
PROVIDERS: PCP Nurse Practitioner; Visit Provider Internal Medicine Cardiovascular Disease
DX: R00.2 Palpitations (principal)
CPT/HCPCS: 93010; 99204

== ENCOUNTER → 2024-05-04 12:48 | Outpatient (REF) | payer MEDICAID, SELFPAY ==
--- NOTE | 2024-05-04 12:50 | CA_ITS ---
Transthoracic Echocardiogram Patient (Last, First, Middle): Joshua Madrid, Gender: Female Date of : 2005 Age: 18 Procedure Date: 05/04/2024 Procedure Type: Transthoracic Echocardiogram Location: OP Height: 152.4 cm Weight: 74.84 kg BSA: 1.72 m2 Heart Rate: 74 bpm BP: 90 / 55 mmHg Logistics Analyst: ANNALISA Referring MD: Parish Stoddard MD Symptoms: R00.2 - Palpitations Study Quality: Fair ECG Rhythm: Sinus Conclusions: - Normal left ventricular size, thickness, systolic function, and wall motion. The visually estimated ejection fraction is between 55-60%. Diastolic function is normal for age. - Normal right ventricular cavity size and systolic function. Findings Left Ventricle Normal left ventricular size, thickness, systolic function, and wall motion. The visually estimated ejection fraction is between 55-60%. Diastolic function is normal for age. Right Ventricle Normal right ventricular cavity size and systolic function. Atria Both atria are normal in size. Aortic Valve Normal aortic valve structure and function. There is no aortic valve stenosis. There is no aortic valve regurgitation. Mitral Valve Normal mitral valve structure and function. There is no mitral valve regurgitation. There is no mitral valve stenosis. Pulmonic Valve The pulmonic valve is likely normal. Tricuspid Valve Normal tricuspid valve structure. There is trace tricuspid valve regurgitation. Tricuspid regurgitation envelope is inadequate for calculation of right ventricular systolic pressure. Normal right atrial pressure. Great Vessels All visible segments of the aorta are normal in size. The visualized portions of the pulmonary artery and branches are normal. Venous The inferior vena cava is normal in size and collapses greater than 50% with inspiration. Pericardium/Pleural There is no evidence of pericardial effusion. Prior Study Comparison No prior study available for comparison. Measurements 2D Linear Measurements IVSd: 0.55 0.6-0.9/0.6-1.0 cm LVIDd: 3.45 3.9-5.3/4.2-5.9 cm LVIDd Index: 2.01 2.4-3.2/2.2-3.1 cm/m2 LVIDs: 2.48 2.0-3.6 cm LVPWd: 0.68 0.7-1.1 cm LA Diam: 2.50 2.7-3.8/3.0-4.0 cm LAIDs Index: 1.45 1.5-2.3 cm/m2 LV Mass: 63.97 67-162/88-224 g LV Mass Index: 37.19 43-95/49-115 g/m2 LVOT Diam: 1.90 3.0+(-)1.3 cm 2D Systolic Function EF 4C: 61.90 >55% EF 2C: 61.00 >55% EF BiP: 61.40 >55% Mitral Valve MV Pk E: 0.80 MV PK A: 0.51 MV Decel Time: 296.00 E/A: 1.60 E'Lateral: 16.30 E'Medial: 12.30 E/E' Med: 6.50 E/E' Lat: 4.90 PHT: 87.00 MVA PHT: 2.53 Decel [place]: 2.69 Aortic Valve AoV Pk Vu: 1.28 AoV Mn Vu: 0.92 AoV VTI: 0.27 AoV Pk Grad: 7.00 Aov Mn Grad: 4.00 WALDO Cont.VTI: 2.23 LVOT LVOT Pk Vu: 1.16 LVOT Mn Vu: 0.72 LVOT VTI: 0.21 LVOT Pk Grad: 5.00 LVOT Mn Grad: 2.00 LVOT Diam: 1.90 LVOT Area: 2.84 Diastolic Function MV Pk E: 0.80 MV Pk A: 0.51 E/A: 1.60 E'Medial: 12.30 E/E' Med: 6.50 E' Laterial: 16.30 E/E' Lat: 4.90 Right Ventricle TAPSE (mm): 18.70 TVS' Vu: 12.30 Tricuspid Valve RA Press: 3.00 Great Vessels Aorta Sinus of Valsalva: 2.50 2.0-3.5 cm Ao Asc: 2.30 2.1-3.4 cm Pulmonary Valve PV Pk Vu: 0.96 Peak PV Grad: 4.00 Updated in Other Vendor System with Status of Final Kenny Farah MD electronically signed on 05/06/2024 5:22:03 PM with status of Final
--- OUTSIDE RECORDS SUMMARY | 2024-05-04 15:10 | XMS_ITS | Encounter Summary ---
Author Organization [employer] Address [address] 7t [place] [address] Care Team Providers Care Client Support Analyst Name Role Phone Liane Silva NP Primary Care Provider [phone] Encounter Details Date Type Department Care Team ([facility] st Contact Info) Description 02/10/2023 Abstract [facility] ADULT DENTAL [address] [place] [address] Brian Jones, DMD [address] [place] [address] Social History Tobacco Use Types Packs/Day Years [...] documented as of this encounter Care Teams Client Support Analyst Relationship Specialty Start Date End Date Liane Silva NP [address] [place] [address] PCP - General Family Medicine 12/08/22 documented as of this encounter
--- OUTSIDE RECORDS SUMMARY | 2024-05-04 15:10 | XMS_ITS | Encounter Summary ---
Author Organization [employer] Address [address] [facility] 7t [place] [address] Care Team Providers Care Financial Accounting Analyst Name Role Phone Liane Silva NP Primary Care Provider [phone] Encounter Details Date Type Department Care Team ([facility] st Contact Info) Description 04/27/2024 Population Health Risk Score [facility] (C3) Department [address] [phone] Provider, Population Health Generic Social History Tobacco Use Types Packs/Day Years [...] documented as of this encounter Care Teams Financial Accounting Analyst Relationship Specialty Start Date End Date Liane Silva NP [address] [place] [address] PCP - General Family Medicine 12/08/22 documented as of this encounter
--- OUTSIDE RECORDS SUMMARY | 2024-05-04 15:10 | XMS_ITS | Encounter Summary ---
Author Organization [employer] [facility] Address [address] [facility] 7t [place] [address] Care Team Providers Care Project Product Manager Name Role Phone Liane Silva NP Primary Care Provider [phone] Reason for Visit * Reason Onset Date Comments Nurse Triage 12/17/2022 Encounter Details Date Type Department Care Team ([facility] st Contact Info) Description 12/17/2022 Telephone [facility] MEDICINE [address] [place] [address] Liane Silva NP [address] [place] [address] Nurse Triage Social History Tobacco Use Types [...] Called pt. No answer. Left message on [phone] to please call back [facility] nurses at [phone]. RE: Neck pain. Called alternate number [phone]. Mother answered phone. Pt. Suffers from migraines but, on the back of pt. Neck is hurting on the back of her neck. Pt. Has not done any neck stretching exercises and Tylenol and Motrin not helping. * Telephone Encounter - Estefany Farley - 12/17/2022 2:05 PM EDT Tc from Glennie returning call and requesting a call back. * Telephone Encounter - Daria Spann RN - 12/17/2022 1:52 PM EDT Call returned to Joshua [facility] for triage. No answer LVM to return call to [facility] triage line [phone]. Mom not on HIPAA. * Telephone Encounter [...] documented as of this encounter Care Teams Project Product Manager Relationship Specialty Start Date End Date Appram, Liane, CAREER SERVICES COORDINATOR [address] [place] [address] PCP - General Family Medicine 12/08/22 documented as of this encounter
--- OUTSIDE RECORDS SUMMARY | 2024-05-04 15:10 | XMS_ITS | Encounter Summary ---
Author Organization [employer] [facility] Address [address] [facility] 7t [place] [address] Care Team Providers Care Installation Technician Name Role Phone Liane Silva NP Primary Care Provider [phone] Reason for Visit * Reason Comments Med Refill Encounter Details Date Type Department Care Team ([facility] st Contact Info) Description 02/23/2023 Refill [facility] MEDICINE [address] [place] [address] Liane Silva NP [address] [place] [address] Neck pain Social History Tobacco Use Types [...] documented as of this encounter Care Teams Installation Technician Relationship Specialty Start Date End Date Liane Silva NP [address] [place] [address] PCP - General Family Medicine 12/08/22 documented as of this encounter
--- OUTSIDE RECORDS SUMMARY | 2024-05-04 15:10 | XMS_ITS | Encounter Summary ---
Author Organization [employer] [facility] Address [address] [facility] 7t [place] [address] Care Team Providers Care Steam Box Operator Name Role Phone Liane Silva NP Primary Care Provider [phone] Reason for Visit * Reason Onset Date Comments Durable Medical Equipment 05/03/2024 Encounter Details Date Type Department Care Team ([facility] st Contact Info) Description 05/03/2024 Telephone [facility] MEDICINE [address] [place] [address] Liane Silva NP [address] [place] [address] Durable Medical Equipment Social History Tobacco Use Types Packs/Day Years [...] encounter Miscellaneous Notes * Telephone Encounter - Rimma Foley - 05/04/2024 2:01 PM EDT Call placed to pt regarding request for heart monitor. Pt stated she saw police judge for referral appt and is now all set. DME request canceled. * Telephone Encounter - Berry Quinteros - 05/03/2024 1:56 PM EDT Tc from pt requesting a call regarding status of a Heart Monitor. Pt states that she spoke with pcpabout getting one. Contact pt at [phone] documented in this encounter Plan of Treatment Not on file documented as of this encounter Visit Diagnoses Not on filedocumented in this encounter Additional Health Concerns Assessment Noted Time PHQ-9 Depression Total Score: 0 01/27/20 3:01 PM EST documented as of this encounter Care Teams Steam Box Operator Relationship Specialty Start Date End Date Liane Silva NP [address] [place] [address] PCP - General Family Medicine 12/08/22 documented as of this encounter
--- OUTSIDE RECORDS SUMMARY | 2024-05-04 15:10 | XMS_ITS | Clinical Summary ---
Author Organization [employer] Address [address] [facility] 7t [place] [address] Care Team Providers Care Nutrition Aide Name Role Phone Liane Silva NP Primary Care Provider [phone] Allergies No known active allergies Medications aspirin-acetamin [...] shoulder pain -seen by rheumatology in 2021. Restorative Aide not certain about arthritis dx. No swollen [...] Encounters Date Type Department Care Team Description 05/03/2024 Telephone [facility] MEDICINE [address] [place] [address] Liane Silva NP Durable Medical Equipment 04/27/2024 Population Health Risk Score [facility] (C3) Department [address] [place] [phone] Provider, Population Health Generic 03/30/2024 Telephone [facility] MEDICINE [address] [place] [address] Liane Silva NP from Last 3 Months Immunizations Name Administration [...] 09/13/2005, 04/12/2005, Additional history exists COVID-19 Vaccine ( - season) 2023 Influenza Vaccine (#1) 2023 [...] Procedure Name Priority Date/Time Associated Diagnosis Comments METANEPHRINES, FRACT, FREE, LC/MS/MS, PLASMA Routine 04/24/2024 2:00 PM EDT TSH W/REFLEX TO FT4 Routine 04/24/2024 2 :00 PM EDT MAGNESIUM Routine 04/24/2024 2:00 PM EDT BASIC METABOLIC PANEL Routine 04/24/2024 2:00 PM EDT CBC Routine 04/24/2024 2:00 PM EDT INTRAORAL - COMPLETE SERIES OF RADIOGRAPHIC IMAGES Routine 01/05/2024 1:00 PM EST PERIODIC ORAL EVALUATION - ESTABLISHED PATIENT Routine 01/05/2024 1:00 PM EST Full PROPHYLAXIS - ADULT Routine 07/01/2022 1:00 PM EDT TOPICAL APPLICATION OF FLUORIDE VARNISH Routine 07/01/2022 1:00 PM EDT from Last 3 Months or Most Recently Relevant to Health Maintenance Results * Metanephrines, Fractionated, Free, LC/MS/MS, Plasma (04/24/2024 2:00 PM EDT) Metanephrine, Free <25 <=57 pg/mL [facility] Comment:This test was develGivU ped and its analytical performancecharacteristics have been determined by [place]. It hasnot been cleared or approved by the U.S. Food and DrugAdministration. This assay has been validated pursuantto the CLIA regulations and is used for clinicalpurposes. Normetanephrine, Free 72 <=148 pg/mL [facility] Comment:This test was develo ped and its analytical performancecharacteristics have been determined by [employer] [place], [place]. It hasnot been cleared or approved by the U.S. Food and DrugAdministration. This assay has been validated pursuantto the CLIA regulations and is used for clinicalpurposes. Total, Free (MN+NMN) 72 <=205 pg/mL [facility] Comment: For additional information, please refer tohttp://education.Chance (app)/faq/MetFractFree(This link is being provided for informational/educatioinformational/educational purposes only.)Elevations >4-fold upper reference range: stronglysuggestive of a pheochromocytoma(1).Elevations >1- 4-fold upper reference range:significant but not diagnostic, may be due tomedications or stress. Suggest running 24 hr urinefractionated metanephrines and/or serum Chromagranin Afor confirmation.Reference:(1)Mannie Nevarez et al, Plasma Chromogranin Aor Urine Fractionated Metanephrines Follow-Up TestingImproves the Diagnostic Accuracy of Plasma FractionatedMetanephrines for Pheochromocytoma. The Journal ofClinical Endocrinology # Metabolism 93(1), 91-95, 2007.This test was developed and its analytical performancecharacteristics have been determined by [employer] [place], [place]. It hasnot been cleared or approved by the U.S. Food and DrugAdministration. This assay has been validated pursuantto the CLIA regulations and is used for clinicalpurposes.THIS TEST WAS PERFORMED AT:[email or web address] [place], [place] ??[address]FOSIJJA W. MASON,MD,PHD 04/24/2024 2:00 PM EDT 04/24/2024 2:00 PM EDT Generic External Data Provider LAB BLOOD ORDERAB LES Final Result Performing Organization Address City/[facility]/ZIP Co de Phone Number [facility] [address] [place] [phone] * TSH with Reflex to Free T4 (04/24/2024 2:00 PM EDT) Pathologist [facility] TSH reflex Free T4 1.11 0.32 - 4.0 uIU/mL [facility] 04/24/2024 2:00 PM EDT 04/24/2024 2:00 PM EDT us Generic External Data Provider LAB BLOOD ORDERAB LES Final Result Performing Organization Address City/[facility]/ZIP Co de Phone Number [facility] [address] [place] [phone] * (ABNORMAL) CBC (04/24/2024 2:00 PM EDT) White Blood Count 9.6 4.8 - 10.8 X10*3/uL [facility] Red Blood Count 4.22 4.20 - 5.50 X10*6/uL [facility] Hemoglobin 12.7 12.0 - 16.0 g/dl [facility] Hematocrit 35.9(L) 37.0 - 47.0 % [facility] Mean Corpuscular Volume 85.1 80.0 - 98.0 fL [facility] Mean Corpuscular Hemoglobin 30.1 27.0 - 33.0 pg [facility] Mean Corpuscular HGB Conc 35.4(H) 31.0 - 35.0 g/dl [facility] Red Cell Distribution Width 12.2 11.0 - 16.0 % [facility] Platelet Count 269 160 - 400 X10*3/uL [facility] Mean Platelet Volume 10.9 9.4 - 12.3 fL [facility] NRBC Pct Auto 0.0 0.0 - 0.2 /100WBC [facility] NRBC Abs Auto 0.000 0.0 - 0.012 X10*3/uL [facility] 04/24/2024 2:00 PM EDT 04/24/2024 2:00 PM EDT us Generic External Data Provider LAB BLOOD ORDERAB LES Final Result Performing Organization Address City/[facility]/ZIP Co de Phone Number [facility] [address] [place] [address] [phone] * Magnesium (04/24/2024 2:00 PM EDT) Pathologist [facility] Magnesium 1.8 1.6 - 2.6 mg/dL [facility] 04/24/2024 2:00 PM EDT 04/24/2024 2:00 PM EDT us Generic External Data Provider LAB BLOOD ORDERAB LES Final Result Performing Organization Address City/[facility]/ZIP Co de Phone Number [facility] [address] [place] [address] [phone] * (ABNORMAL) Basic Metabolic Panel (04/24/2024 2:00 PM EDT) Sodium 141 135 - 145 mmol/L [facility] Potassium 4.0 3.3 - 5.1 mmol/L [facility] Chloride 110(H) 96 - 108 mmol/L [facility] Carbon Dioxide 23 22 - 29 mmol/L [facility] Anion Gap 12 12 - 20 [facility] Urea Nitrogen (BUN) 11 9 - 16 mg/dL [facility] Creatinine, Serum 0.61 0.5 - 1.4 mg/dL [facility] Estimated Glomerular Filt Rate >60 [facility] Comment:Chronic Kidney Disea se: Estimated GFR < 60 mL/min/1.55i9Jlmvzi Kidney Disease: Estimated GFR < 15 mL/min/1.73m2 Glucose 82 60 - 115 mg/dL [facility] Calcium 9.7 8.4 - 10.2 mg/dL [facility] 04/24/2024 2:00 PM EDT 04/24/2024 2:00 PM EDT us Generic External Data Provider LAB BLOOD ORDERAB LES Final Result [facility] [address] [place] [address] [phone] from Last 3 Months Insurance [employer] C[place] STAND CHILD [place] ST[place] Care Teams Nutrition Aide Relationship Specialty Start Date End Date Liane Silva NP [address] [place] [address] PCP - General Family Medicine 12/08/22
--- OUTSIDE RECORDS SUMMARY | 2024-05-04 15:10 | XMS_ITS | Clinical Summary ---
Author Organization [facility] Address [address] [place] [address] Care Team Providers Care Certified Ophthalmic Technologist Name Role Phone Farrukh Wooten MD Primary Care Provider [phone] Source Comments Please note that some or [...] so, obtain the minor's consent prior to disclosure.[facility] Allergies No known active allergies Medications [...] 08/20/2021 3:0 0 PM EDT Growth Chart: [facility] (Girls, 2- 20 Years) Plan of Treatment Health Maintenance Due Date Last Done Comments DTaP/TDAP/TD VACCINES (1 - Tdap) 08/04/2011 ADOLESCENT HIV SCREENING 2017 COVID-19 Vaccine ( - 2023-2 5 season) 2023 INFLUENZA (#1) 2023 NIRSEVIMAB VACCINES UNDER 8 MONTHS Aged Out No longer eligible based on patient's age to complete this topic Insurance [facility] [employer] Care Teams Certified Ophthalmic Technologist Relationship Specialty Start Date End Date Farrukh Wooten MD [address] [place] [phone] PCP - General General Pediatrics 05/14/21
--- OUTSIDE RECORDS SUMMARY | 2024-05-04 15:10 | XMS_ITS | Encounter Summary ---
Author Organization [employer] Address [address] [facility] [address] 7t [place] [address] Care Team Providers Care Gang Rider Name Role Phone Liane Silva NP Primary Care Provider [phone] Encounter Details Date Type Department Care Team ([facility] st Contact Info) Description 01/26/2023 Abstract [facility] MEDICINE [address] [place] [address] Liane Silva NP [address] [place] [address] Social History Tobacco Use Types Packs/Day Years [...] documented as of this encounter Care Teams Gang Rider Relationship Specialty Start Date End Date Liane Silva NP [address] [place] [address] PCP - General Family Medicine 12/08/22 documented as of this encounter
--- OUTSIDE RECORDS SUMMARY | 2024-05-04 15:10 | XMS_ITS | Encounter Summary ---
Author Organization [employer] Address [address] [facility] [address]t [place] [address] Care Team Providers Care Cashier Clerk Name Role Phone Liane Silva NP Primary Care Provider [phone] Encounter Details Date Type Department Care Team ([facility] st Contact Info) Description 02/24/2023 Abstract [facility] MEDICINE [address] [place] [address] Liane Silva NP [address] [place] [address] Social History Tobacco Use Types Packs/Day Years [...] documented as of this encounter Care Teams Cashier Clerk Relationship Specialty Start Date End Date Liane Silva NP [address] [place] [address] PCP - General Family Medicine 12/08/22 documented as of this encounter
--- OUTSIDE RECORDS SUMMARY | 2024-05-04 15:10 | XMS_ITS | Encounter Summary ---
Author Organization [employer] Address [address] 7t [place] [address] Care Team Providers Care Rn Provider Relations Name Role Phone Liane Silva NP Primary Care Provider [phone] Encounter Details Date Type Department Care Team ([facility] st Contact Info) Description 02/24/2023 Abstract [facility] MEDICINE [address] [place] [address] Liane Silva NP [address] [place] [address] Social History Tobacco Use Types Packs/Day Years [...] documented as of this encounter Care Teams Rn Provider Relations Relationship Specialty Start Date End Date Liane Silva NP [address] [place] [address] PCP - General Family Medicine 12/08/22 documented as of this encounter
== END ==
LOC: HO.CARD 12:48
PROVIDERS: PCP Nurse Practitioner; Visit Provider Internal Medicine Cardiovascular Disease
DX: R00.2 Palpitations (principal)
CPT/HCPCS: 93270; 93306

== ENCOUNTER → 2024-05-04 12:50 | Outpatient (BNV) | payer MEDICAID, SELFPAY | PROVIDERS: PCP Nurse Practitioner; Visit Provider Internal Medicine Cardiovascular Disease | DX: R00.2 Palpitations (principal) | CPT/HCPCS: 93306 ==

== ENCOUNTER 2024-06-22 16:00 | Outpatient (REF) | payer MEDICAID, SELFPAY ==
--- OUTSIDE RECORDS SUMMARY | 2024-06-22 16:02 | XMS_ITS | Encounter Summary ---
Author Organization [employer] Address [address] [place] [address] 7 [place] [address] Care Team Providers Care Export Sales Manager Name Role Phone Liane Silva NP Primary Care Provider [phone] Reason for Referral * Consultation (Urgent) - Pending Review Specialty Diagnoses / Procedures Referred By Prema mccrary Referred To Contact Neurology Diagnoses Cervicogenic headache Migraine without aura, not intractable, without status migrainosus Alanis Fuentes NP [address] [place] [address] Phone: tel: fax: Referral ID Status Reason Start Date Expiration Date Visits Requested Visits Authorized [id number] Pending Review Specialty Services Required 06/22/2024 06/22/2025 1 1 Encounter Details Date Type Department Care Team (Late st Contact Info) Description 06/22/2024 3:30 PM EDT Office Visit [facility] MEDICINE [address] [place], [place] [phone] Alanis Fuentes NP [address] [place], [place] [phone] Cervicogenic headache (Primary Dx); Migraine without aura, not intractable, without status migrainosus; Nausea Social History Tobacco Use Types Packs/Day Years [...] AM EDT documented as of this encounter Last Filed Vital Signs Vital Sign Reading Time Taken Comments Blood Pressure 116/66 06/22/2024 3:38 PM EDT Pulse 93 06/22/2024 3:38 PM EDT Temperature 36.2 ??C (97.1 ??F) 06/22/2024 3:38 PM ED T Respiratory Rate 18 06/22/2024 3:38 PM EDT Oxygen Saturation 98% 06/22/2024 3:38 PM EDT Inhaled Oxygen Concentration - - Weight 80 kg (176 lb 6.4 oz) 06/22/2024 3:38 PM EDT Height 152.4 cm (5') 06/22/2024 3:38 PM EDT Body Mass Index 34.45 06/22/2024 3:38 PM EDT documented in this encounter Plan of Treatment Upcoming Encounters Date Type Department Care Team (Late st Contact Info) Description 11/05/2024 8:00 AM EDT Office Visit [facility] ADULT DENTAL [address] [place] [address] Kacey Acosta Scheduled Orders Name Type Priority Associated Diagnoses Orde r Schedule CBC auto differential Lab Routine Nausea Expected: 06/22/2024 (Approximate), Expires: 06/22/2025 Comprehensive Metabolic Panel Lab Routine Nausea Expected: 06/22/2024 (Approximate), Expires: 06/22/2025 TSH W/Reflex to FT4 Lab Routine Nausea Expected: 06/22/2024 (Approximate), Expires: 06/22/2025 Scheduled Referrals Name Type Priority Associated Diagnoses Orde r Schedule Referral to Neurology Outpatient Referral Urgent Cervicogenic headache Migraine without aura, not intractable, without status migrainosus Expected: 06/22/2024 (Approximate), Expires: 06/22/2025 documented as of this encounter Visit Diagnoses Diagnosis Cervicogenic headache- Primary Headache Migraine without aura, not intractable, without status migrainosus Nausea Nausea alone documented in this encounter Additional Health Concerns Assessment Noted Time PHQ-9 Depression Total Score: 0 01/27/20 3:01 PM EST documented as of this encounter Care Teams Export Sales Manager Relationship Specialty Start Date End Date Liane Silva NP [address] [place] [address] PCP - General Family Medicine 12/08/22 documented as of this encounter
--- OUTSIDE RECORDS SUMMARY | 2024-06-22 16:02 | XMS_ITS | Encounter Summary ---
Author Organization [employer] Address [address] [facility] [address] [facility] [address] [address] 7t [place] [address] Care Team Providers Care Bank Operations Officer Name Role Phone Liane Silva NP Primary Care Provider [phone] Encounter Details Date Type Department Care Team (Latest Contact Info) Description 06/22/2024 Travel Social History Tobacco Use Types Packs/Day Years [...] t he electric, gas, oil or water boolino threatened to shut off services in your [...] as of this encounter Plan of Treatment Upcoming Encounters Date Type Department Care Team (Late st Contact Info) Description 11/05/2024 8:00 AM EDT Office Visit [facility] ADULT DENTAL [address] [place] [address] Kacey Acosta documented as of this encounter Visit Diagnoses Not on filedocumented in this encounter Additional Health Concerns Assessment Noted Time PHQ-9 Depression Total Score: 0 01/27/20 3:01 PM EST documented as of this encounter Care Teams Bank Operations Officer Relationship Specialty Start Date End Date Liane Silva NP [address] [place] [address] PCP - General Family Medicine 12/08/22 documented as of this encounter
--- OUTSIDE RECORDS SUMMARY | 2024-06-22 16:02 | XMS_ITS | Encounter Summary ---
Author Organization [employer] Address [address] [facility] 7t [place] [address] Care Team Providers Care Conservation Enforcement Officer Name Role Phone Liane Silva NP Primary Care Provider [phone] Reason for Visit * Reason Onset Date Comments Referral 06/20/2024 Encounter Details Date Type Department Care Team ([facility] st Contact Info) Description 06/20/2024 Telephone [facility] MEDICINE [address] [place] [address] Liane Silva NP [address] [place] [address] Referral Social History Tobacco Use Types Packs/Day Years [...] encounter Miscellaneous Notes * Telephone Encounter - Brianda Duenas RN - 06/20/2024 11:12 AM EDT TC placed to pt regarding request for referral to MRI or a Neurologist due to having severe pain attimes only one side of the head (L). Pt reports she gets a 10/10 excruciating pain in her head approximately 5 times daily for the last 2 months. Pt would not categorize pain as a headache and statesit is a pain that comes and goes. Pt reports when the pain hits her, it is only on the left side and it feels like a bat across her face. Pt reports this comes and goes 5 times daily. Advised pt of [facility]. Pt would like appointment with provider. Pt booked with Alanis Fuentes on 06/22/24 at 3:30 PM. Pt verbalized understanding and denies questions at this time. * Telephone Encounter - Constance Lynch - 06/20/2024 10:52 AM EDT Tc from pt requesting referral to MRI or a Neurologist due to having severe headache at times only one side of the head (L). Please return call [phone] documented in this encounter Plan of Treatment Upcoming Encounters Date Type Department Care Team (Late st Contact Info) Description 11/05/2024 8:00 AM EDT Office Visit [facility] ADULT DENTAL [address] [place] [address] Kacey Acosta documented as of this encounter Visit Diagnoses Not on filedocumented in this encounter Additional Health Concerns Assessment Noted Time PHQ-9 Depression Total Score: 0 01/27/20 3:01 PM EST documented as of this encounter Care Teams Conservation Enforcement Officer Relationship Specialty Start Date End Date Liane Silva NP [address] [place] [address] PCP - General Family Medicine 12/08/22 documented as of this encounter
--- OUTSIDE RECORDS SUMMARY | 2024-06-22 16:03 | XMS_ITS | Clinical Summary ---
Author Organization [employer] Address [address] [facility] [address] [place] [address] Care Team Providers Care Binding Cutter Name Role Phone Liane Silva NP Primary Care Provider [phone] Allergies No known active allergies Medications aspirin-acetami nophen-caffeine (Excedrin Migraine) 250-250-65 MG tablet Take by mouth. Activ e multivitamin (Theragran) tabletIndicatio ns:Encounter for routine child health examination without abnormal findings 1 tab by oral route daily 90 tablet 3 05/05/19 23 Active albuterol 108 (90 Base) MCG/ACT inhalerIndicati ons:Mild intermittent asthma without complication 2-4 puff by Inhalation route every 4 hours prn ;administer with spacer 18 g 2 01/27/20 23 Active Additional Information Patient not taking.Reported on 04/22/2023 Diclofenac Sodium 1 % gelIndications: Neck pain APPLY 1 G TOPICALLY IF NEEDED IN THE MORNING, AT NOON, AND AT BEDTIME (PAIN). 100 g 2 03/30/19 24 Active Additional Information Patient not taking.Reported on 04/22/2023 hydrOXYzine HCl (Atarax) 25 MG tabletIndicatio ns:Chest pain, unspecified type Take 1 tablet (25 mg) by mouth every 8 (eight) hours if needed for anxiety. 90 tablet 09/30/19 24 Active baclofen (Lioresal) 10 MG tabletIndicatio ns:Neck pain, chronic Take one tablet TID PRN 30 tablet 09/30/19 24 Active naproxen (Naprosyn) 500 MG tabletIndicatio ns:Migraine without aura, not intractable, without status migrainosus TAKE 1 TABLET BY MOUTH TWICE A DAY 60 tablet 10/28/19 24 Active SUMAtriptan (Imitrex) 25 MG tabletIndicatio ns:Cervicogenic headache,Migrai ne without aura, not intractable, without status migrainosus Take 1 tablet (25 mg) by mouth 1 (one) time if needed for migraine for up to 9 doses. May repeat dose once in 2 hours if no relief. Do not exceed 2 doses in 24 hours. 9 tablet 06/23/19 25 Active SUMAtriptan (Imitrex) 25 MG tabletIndicatio ns:Migraine without aura, not intractable, without status migrainosus TAKE 1 TABLET BY MOUTH 1 TIME IF NEEDED FOR MIGRAINE FOR UP TO 9 DAYS. MAY REPEAT DOSE ONCE IN 2 HOURS IF NO RELIEF. DO NOT EXCEED 2 DOSES IN 24 HOURS. 9 tablet 05/19/19 24 2024 Discontinued(R eorder (will not trigger notification to Pharmacy)) Active Problems Problem Noted Date Diagnosed Date Cervicogenic headache 06/22/2024 Nausea 06/22/2024 Atypical odontalgia 01/05/2024 Chest pain 07/23/2023 Assessment [...] shoulder pain -seen by rheumatology in 2021. Drug Safety Assistant not certain about arthritis dx. No swollen [...] Encounters Date Type Department Care Team Description 06/22/2024 3:30 PM EDT Office Visit [facility] MEDICINE [address] [place] [address] Alanis Fuentes NP Cervicogenic headache (Primary Dx); Migraine without aura, not intractable, without status migrainosus; Nausea 06/22/2024 Travel 06/20/2024 Telephone [facility] MED[facility]INE [address] [place] [address] Liane Silva NP Referral 05/03/2024 Telephone [facility] MED[facility] [address] [place], [place] [phone] Liane Silva NP Durable Medical Equipment 04/27/2024 Population Health Risk Score [facility] ([facility]) Department [address] [place] [phone] Provider, Population Health Generic 03/30/2024 Telephone [facility] MED[facility]INE [address] [place] [address] Liane Silva NP from Last 3 Months Immunizations Name Administration Dates Next Due DTaP 09/02/2008, 6,04/12/2005,12/21,2004 HPV 9-Valent 02/17/2016,08/26/2015 Hep A, ped/adol, 2 dose 05/21/2008,09/13/2005 Hep B, Adolescent or Pediatric 2004,2004 Hep B, adult 04/12/2005 Hib (HbOC) 11/09/2005,2004,2004 IPV 09/02/2008, 6,2004,10/20 Influenza Whole 12/19/2018 Influenza injectable quadriv alent preservative free 01/26/2023,05/04/2022,04/29/2021,01/20,12/19/2018,11/29/2017,02/17/2016 MMR 09/02/2008,09/13/2005 Meningococcal MCV4P ACYW-135 04/29/2021,08/26/19 16 Pneumococcal Conjugate PCV 7 11/09/2005, 09/13/2005,04/12/2005,10/20 Tdap [...] Mass Index 34.45 06/22/2024 3:38 PM EDT Plan of Treatment Upcoming Encounters Date Type Department Care Team (Late st Contact Info) Description 11/05/2024 8:00 AM EDT Office Visit [facility] ADULT DENTAL [address] [place] [address] Kacey Acosta Health Maintenance Due Date Last Done Comments [...] 04/12/2005, Additional history exists COVID-19 Vaccine ( season) 2023 Influenza Vaccine (#1) 2023 , [...] PM EDT) Metanephrine, Free <25 <=57 pg/mL [facility] Comment:This test was develo ped and its analytical performancecharacteristics have been determined by [employer] [place], [place]. It hasnot been cleared or approved by the U.S. Food and DrugAdministration. This assay has been validated pursuantto the CLIA regulations and is used for clinicalpurposes. Normetanephrine, Free 72 <=148 pg/mL [facility] Comment:This test was develo ped and its analytical performancecharacteristics have been determined by [facility]. It hasnot been cleared or approved by the U.S. Food and DrugAdministration. This assay has been validated pursuantto the CLIA regulations and is used for clinicalpurposes. Total, Free (MN+NMN) 72 <=205 pg/mL [facility] Comment: For additional information, please refer tohttp://education.Nitro PDF/faq/MetFractFree(This link is being provided for informational/educatioinformational/educational purposes only.)Elevations >4-fold upper reference range: stronglysuggestive of a pheochromocytoma(1).Elevations >1- 4-fold upper reference range:significant but not diagnostic, may be due tomedications or stress. Suggest running 24 hr urinefractionated metanephrines and/or serum Chromagranin Afor confirmation.Reference:(1)Mannie Perez al, Plasma Chromogranin Aor Urine Fractionated Metanephrines Follow-Up TestingImproves the Diagnostic Accuracy of Plasma FractionatedMetanephrines for Pheochromocytoma. The Journal ofClinical Endocrinology # Metabolism 93(1), 91-95, 2008.This test was developed and its analytical performancecharacteristics have been determined by [employer] [place], [place]. It hasnot been cleared or approved by the U.S. Food and DrugAdministration. This assay has been validated pursuantto the CLIA regulations and is used for clinicalpurposes.THIS TEST WAS PERFORMED AT:[employer] [id number] [place], [place] ??[id number] HARGROVE MD,PHD 04/24/2024 2:00 PM EDT 04/24/2024 2:00 PM EDT us Generic External Data Provider LAB BLOOD ORDERAB LES Final Result Performing Organization Address City/[facility]/ZIP Co de Phone Number [facility] [address] [place] [phone] * TSH with Reflex to Free T4 (04/24/2024 2:00 PM EDT) Pathologist [facility] TSH reflex Free T4 1.11 0.32 - 4.0 uIU/mL [facility] 04/24/2024 2:00 PM EDT 04/24/2024 2:00 PM EDT us Generic External Data Provider LAB BLOOD ORDERAB LES Final Result Performing Organization Address City/[facility]/ZIP Co de Phone Number [facility] [address] [place] [phone] * (ABNORMAL) CBC (04/24/2024 2:00 PM EDT) Pathologist [facility] White Blood Count 9.6 4.8 - 10.8 X10*3/uL [facility] Red Blood Count 4.22 4.20 - 5.50 X10*6/uL [facility] Hemoglobin 12.7 12.0 - 16.0 g/dl [facility] Hematocrit 35.9(L) 37.0 - 47.0 % [facility] Mean Corpuscular Volume 85.1 80.0 - 98.0 fL [facility] Mean Corpuscular Hemoglobin 30.1 27.0 - 33.0 pg [facility] Mean Corpuscular HGB Conc 35.4(H) 31.0 - 35.0 g/dl [facility] Red Cell Distribution Width 12.2 11.0 - 16.0 % [facility] Platelet Count 269 160 - 400 X10*3/uL [facility] Mean Platelet Volume 10.9 9.4 - 12.3 fL [facility] NRBC Pct Auto 0.0 0.0 - 0.2 /100WBC [facility] NRBC Abs Auto 0.000 0.0 - 0.012 X10*3/uL [facility] 04/24/2024 2:00 PM EDT 04/24/2024 2:00 PM EDT Generic External Data Provider LAB BLOOD ORDERAB LES Final Result Performing Organization Address [facility]/ZIP Co de Phone Number [facility] [address] [place] [phone] * Magnesium (04/24/2024 2:00 PM EDT) [facility] Magnesium 1.8 1.6 - 2.6 mg/dL [facility] 04/24/2024 2:00 PM EDT 04/24/2024 2:00 PM EDT Generic External Data Provider LAB BLOOD ORDERAB LES Final Result Performing Organization Address [facility] Phone Number [facility] [address] [place] [phone] * (ABNORMAL) Basic Metabolic Panel (04/24/2024 2:00 PM EDT) Pathologist [facility] Sodium 141 135 - 145 mmol/L [facility] Potassium 4.0 3.3 - 5.1 mmol/L [facility] Chloride 110(H) 96 - 108 mmol/L [facility] Carbon Dioxide 23 22 - 29 mmol/L [facility] Anion Gap 12 12 - 20 [facility] Urea Nitrogen (BUN) 11 9 - 16 mg/dL [facility] Creatinine, Serum 0.61 0.5 - 1.4 mg/dL [facility] Estimated Glomerular Filt Rate >60 [facility] Comment:Chronic Kidney Disea se: Estimated GFR < 60 mL/min/1.81g8Vwxnww Kidney Disease: Estimated GFR < 15 mL/min/1.73m2 Glucose 82 60 - 115 mg/dL [facility] Calcium 9.7 8.4 - 10.2 mg/dL [facility] 04/24/2024 2:00 PM EDT 04/24/2024 2:00 PM EDT us Generic External Data Provider LAB BLOOD ORDERAB LES Final Result [facility] [address] [place] [phone] from Last 3 Months Insurance [facility] C3 DENTAL-[facility] MEDICAID STAND CHILD * Guarantor: Joshua Madrid Account Type Relation to Patient Date of Phone Billing Address Dental Self 2005 [address] [place] [address] [place] STAND CHILD Care Teams Binding Cutter Relationship Specialty Start Date End Date Liane Silva NP [address] [place] [address] PCP - General Family Medicine 12/08/22
--- OUTSIDE RECORDS SUMMARY | 2024-06-22 16:03 | XMS_ITS | Encounter Summary ---
Author Organization [employer] Address [address] [facility] [address] [facility] [address] [facility] [address] [place] [address] Care Team Providers Care Life Skills Trainer Name Role Phone Liane Silva NP Primary Care Provider [phone] Encounter Details Date Type Department Care Team ([facility] st Contact Info) Description 01/26/2023 Abstract [facility] MEDICINE [address] [place] [address] Liane Silva NP [address] [place] [address] Social History Tobacco Use Types Packs/Day Years [...] Description 11/05/2024 8:00 AM EDT Office Visit [facility] ADULT DENTAL [address] [place] [address] Kacey Acosta documented as of this encounter Visit Diagnoses Not on filedocumented in this encounter Additional Health Concerns Assessment Noted Time PHQ-9 Depression Total Score: 0 01/27/20 3:01 PM EST documented as of this encounter Care Teams Life Skills Trainer Relationship Specialty Start Date End Date Liane Silva NP [address] [place] [address] PCP - General Family Medicine 12/08/22 documented as of this encounter
--- OUTSIDE RECORDS SUMMARY | 2024-06-22 16:03 | XMS_ITS | Encounter Summary ---
Author Organization [employer] Address [address] [facility] [address]t [place] [address] Care Team Providers Care Associate Theatre Professor Name Role Phone Liane Silva NP Primary Care Provider [phone] Reason for Visit * Reason Comments Med Refill Encounter Details Date Type Department Care Team (Late st Contact Info) Description 02/23/2023 Refill [facility] [address] [place] [address] Liane Silva NP [address] [place] [address] Neck pain Social History Tobacco Use Types [...] your housing situation today? I have maryan cifuentse 01/19/[address] you li [...] Description 11/05/2024 8:00 AM EDT Office Visit [facility] ADULT DENTAL [address] [place] [address] Kacey Acosta documented as of this encounter Visit Diagnoses Diagnosis Neck pain Cervicalgia documented in this encounter Additional Health Concerns Assessment Noted Time PHQ-9 Depression Total Score: 0 01/27/20 3:01 PM EST documented as of this encounter Care Teams Associate Theatre Professor Relationship Specialty Start Date End Date Liane Silva NP [address] [place] [address] PCP - General Family Medicine 12/08/22 documented as of this encounter
--- OUTSIDE RECORDS SUMMARY | 2024-06-22 16:03 | XMS_ITS | Encounter Summary ---
Author Organization [employer] Address [address] [facility] [address] [place] [address] Care Team Providers Care Eyelet Punch Operator Name Role Phone Liane Silva NP Primary Care Provider [phone] Encounter Details Date Type Department Care Team ([facility] st Contact Info) Description 02/10/2023 Abstract [facility] ADULT DENTAL [address] [place] [address] Brian Jones, DMD [address] [place] [address] Social History Tobacco Use Types Packs/Day Years [...] enough money to get more: Never True 12/ 07/2022 Transportation Answer Date Recorded In the [...] Description 11/05/2024 8:00 AM EDT Office Visit [facility] ADULT DENTAL [address] [place] [address] Kacey Acosta documented as of this encounter Visit Diagnoses Not on filedocumented in this encounter Additional Health Concerns Assessment Noted Time PHQ-9 Depression Total Score: 0 01/27/20 3:01 PM EST documented as of this encounter Care Teams Eyelet Punch Operator Relationship Specialty Start Date End Date Liane Silva NP [address] [place] [address] PCP - General Family Medicine 12/08/22 documented as of this encounter
--- OUTSIDE RECORDS SUMMARY | 2024-06-22 16:03 | XMS_ITS | Encounter Summary ---
Author Organization [employer] Address [address] [place] [address] Care Team Providers Care Truckload Owner Operator Name Role Phone Liane Silva NP Primary Care Provider [phone] Encounter Details Date Type Department Care Team ([facility] st Contact Info) Description 02/24/2023 Abstract [facility] MEDICINE [address] [place] [address] Liane Silva NP [address] [place] [address] Social History Tobacco Use Types Packs/Day Years [...] Description 11/05/2024 8:00 AM EDT Office Visit [facility] ADULT DENTAL [address] [place] [address] Kacey Acosta documented as of this encounter Visit Diagnoses Not on filedocumented in this encounter Additional Health Concerns Assessment Noted Time PHQ-9 Depression Total Score: 0 01/27/20 3:01 PM EST documented as of this encounter Care Teams Truckload Owner Operator Relationship Specialty Start Date End Date Liane Silva NP [address] [place] [address] PCP - General Family Medicine 12/08/22 documented as of this encounter
--- OUTSIDE RECORDS SUMMARY | 2024-06-22 16:03 | XMS_ITS | Encounter Summary ---
Author Organization [employer] Address [address] [facility] 7t [place] [address] Care Team Providers Care Plastics And Composites Inspector Name Role Phone Liane Silva REFRIGERATION BRAZER/SOLDERER Primary Care Provider [phone] Reason for Visit * Reason Onset Date Comments Nurse Triage 12/17/2022 Encounter Details Date Type Department Care Team (Late st Contact Info) Description 12/17/2022 Telephone [facility] MEDICINE [address] [place] [address] Liane Silva NP [address] [place] [address] Nurse Triage Social History Tobacco Use Types [...] Called pt. No answer. Left message on [phone] to please call back [facility] nurses at [phone]. RE: Neck pain. Called alternate number [phone]. Mother answered phone. Pt. Suffers from migraines but, on the back of pt. Neck is hurting on the back of her neck. Pt. Has not done any neck stretching exercises and Tylenol and Motrin not helping. * Telephone Encounter - Estefany Farley - 12/17/2022 2:05 PM EDT Tc from [place] returning call and requesting a call back. * Telephone Encounter - Daria Spann RN - 12/17/2022 1:52 PM EDT Call returned to Joshua Madrid for triage. No answer LVM to return call to [facility] triage line [phone]. Mom not on HIPAA. * Telephone Encounter [...] Description 11/05/2024 8:00 AM EDT Office Visit [facility] ADULT DENTAL [address] [place] [address] Kacey Acosta documented as of this encounter Visit Diagnoses Not on filedocumented in this encounter Additional Health Concerns Assessment Noted Time PHQ-9 Depression Total Score: 1 05/07/19 1:36 PM EDT documented as of this encounter Care Teams Plastics And Composites Inspector Relationship Specialty Start Date End Date Liane Silva NP [address] [place] [address] PCP - General Family Medicine 12/08/22 documented as of this encounter
--- OUTSIDE RECORDS SUMMARY | 2024-06-22 16:03 | XMS_ITS | Encounter Summary ---
Author Organization [employer] Address [address] [facility] [address] [place] [address] Care Team Providers Care Rotary Cutter Name Role Phone Liane Silva NP Primary Care Provider [phone] Encounter Details Date Type Department Care Team ([facility] st Contact Info) Description 02/24/2023 Abstract [facility] MEDICINE [address] [place] [address] Liane Silva NP [address] [place] [address] Social History Tobacco Use Types Packs/Day Years [...] Description 11/05/2024 8:00 AM EDT Office Visit [facility] ADULT DENTAL [address] [place] [address] Kacey Acosta documented as of this encounter Visit Diagnoses Not on filedocumented in this encounter Additional Health Concerns Assessment Noted Time PHQ-9 Depression Total Score: 0 01/27/20 3:01 PM EST documented as of this encounter Care Teams Rotary Cutter Relationship Specialty Start Date End Date Liane Silva NP [address] [place] [address] PCP - General Family Medicine 12/08/22 documented as of this encounter
[2024-06-22 17:44] LABS: MANUAL DIFF FLAG NO
[2024-06-22 17:49] LABS: Basophils Percent Auto 0.6 % (0-2); Eosinophils Absolute Auto 0.3 X10*3/uL (0.0-0.4); Hematocrit 35.1 % (37.0-47.0); Hemoglobin 12.4 g/dl (12.0-16.0); Imm Gran Abs Auto 0.01 X10*3/uL (0.00-0.03); Imm Gran Pct Auto 0.1 % (0.0-0.4); Lymphocytes Absolute Auto 2.2 X10*3/uL (1.2-4.9); Mean Corpuscular HGB Conc 35.3 g/dl (31.0-35.0); Mean Corpuscular Hemoglobin 30.1 pg (27.0-33.0); Mean Corpuscular Volume 85.2 fL (80.0-98.0); Mean Platelet Volume 11.4 fL (9.4-12.3); Monocytes Absolute Auto 0.4 X10*3/uL (0.1-1.2); Monocytes Percent Auto 5.6 % (2-11); Neutrophils Absolute Auto 4.1 x10*3/uL (2.0-8.3); Neutrophils Percent Auto 58.7 % (45-73); Platelet Count 340 X10*3/uL (160-400); Red Blood Count 4.12 X10*6/uL (4.20-5.50); Red Cell Distribution Width 11.9 % (11.0-16.0)
[2024-06-22 18:37] LABS: Alanine Aminotransferase 13 U/L (0-31); Albumin Level 4.6 g/dL (3.5-5.0); Alkaline Phosphatase 77 U/L (39-117); Anion Gap 13 (12-20); Aspartate Amino Transferase 23 U/L (5-31); Bilirubin Total 0.3 mg/dL (0.0-1.0); Blood Urea Nitrogen 10 mg/dL (9-16); Calcium 9.5 mg/dL (8.4-10.2); Carbon Dioxide 26 mmol/L (22-29); Chloride 105 mmol/L (96-108); Estimated Glomerular Filt Rate > 60; Glucose Random 115 mg/dL (60-115); Sodium 140 mmol/L (135-145); Total Protein 7.8 g/dL (6.5-8.0)
[2024-06-22 18:53] LABS: TSH reflex Free T4 2.35 uIU/mL (0.32-4.0)
== END 2024-06-22 16:01 | disposition home or self-care (01) ==
LOC: HO.HHCL 16:00
PROVIDERS: Visit Provider Nurse Practitioner Family
DX: R11.0 Nausea (principal)
CPT/HCPCS: 36415; 80053; 84443; 85025

== ENCOUNTER 2024-06-28 13:55 | Outpatient (AMB) | payer MEDICAID, SELFPAY ==
--- NOTE | 2024-06-28 13:59 | MHC.OFFVIS ---
Vital Signs 06/28/24 14:00 Height 5 ft Weight 169 lb 12.095 oz BMI 33.1 BP 118/68 Blood Pressure Location Lt brachial Position Sitting Pulse 79 Pulse Source Pulse Oximeter Intake Visit Reasons: s/p echo/30 day NS Allergies No Known Allergies [No Known Allergies*] Allergy (Verified 09/26/23 19:28) Medication List - Last Reconciled 06/28/24 by Luis Angel Grullon NP No Known Home Meds HPI Comments Details: This is a 18-year-old female patient coming in for a follow-up visit, accompanied by her mother. She was previously evaluated for palpitations associated with shortness of breath and dizziness. As part of her workup, she underwent an echocardiogram, Holter study, and lab tests including TSH and plasma metanephrines to evaluate for hormonal imbalance. Today, patient reports that palpitations persist accompanied by shortness of breath and dizziness. She also reports occasional chest pain with these episodes. These symptoms are intermittent and unpredictable, occurring both at rest including during sleep as well as with exertion. Patient denies any presyncope, syncope, orthopnea, PND, or leg edema. [facility] Medical History Rheumatoid arthritis Family History Father No problems noted. Mother No problems noted. Social History Patient Tobacco Use Status: Never used Tobacco Review of Systems Const Denies weakness ENT Denies dizziness Card Denies chest pain, Denies chest pain with activity, Denies syncope, Denies rapid heart rate, Denies pedal edema, Denies edema, Denies leg edema, Denies lightheadedness, Denies palpitations, Denies dyspnea, Denies dyspnea on exertion and Denies orthopnea Resp Denies cough, Denies dyspnea and Denies dyspnea on exertion GI Denies hematochezia and Denies change in stool character Musc Denies abnormal gait, Denies muscle cramps, Denies muscle weakness, Denies numbness, Denies radiating pain into limb and Denies tingling Neuro Denies abnormal gait, Denies dizziness, Denies syncope, Denies numbness, Denies tingling and Denies weakness Endo Denies palpitations Physical Exam Vital Signs: Last Vital Signs Pulse 79 06/28/24 14:00 BP 118/68 06/28/24 14:00 BMI result Body Mass Index 33.1 Const General: cooperative, healthy appearing, comfortable and no acute distress Orientation/consciousness: patient oriented x3 HEENT Head: Yes normal to inspection Neck Neck: Yes normal visual inspection, Yes trachea midline and Yes supple Chest Chest palpation & inspection: normal inspection of the chest Resp Effort & Inspection: normal respiratory effort Auscultation: clear to auscultation bilaterally, no crackles, no rales, no rhonchi and no wheezes Cardio Jugular venous distension: no JVD Palpation: normal PMI Rate: regular rate Rhythm: regular rhythm Heart sounds: S1 normal heart sound present, S2 normal heart sound present, no click, no gallops, no murmurs and no rubs Peripheral pulses: Peripheral pulses 2+ throughout GI Inspection: Yes normal to inspection Palpation (GI): Soft to palpation Auscultation: normal bowel sounds Skin General skin exam: no rashes or lesions noted Neuro General: patient oriented x3 Extrem General: Yes normal to inspection, No no pedal edema and No calf tenderness Psych Appearance: grossly normal Mental Status: mental status grossly normal Speech and movement: Normal speech and movement present Assessment & Plan Assessment & Plan (1) Chest pain: Code(s): R07.9 - Chest pain, unspecified Category: Medical (2) Palpitations: Code(s): R00.2 - Palpitations Category: Medical Plan 05/04/2024-patient underwent 30 day cardiac event monitor that showed baseline normal sinus rhythm with heart rate 81 beats per minute, with multiple episodes of NSVT fastest heart rate at 192. Patient marked her symptoms with sinus tachycardia. However, patient reports she did not consistently more call her symptomatic episodes and noted palpitations during most of the monitoring period. 05/04/2024-echo study showed normal LV systolic function with EF between 55-60% without any structural abnormalities. Patient continues to experience frequent palpitations, shortness or breath, dizziness, and now occasional chest discomfort. Given the presence of SVT and symptomatic tachycardia, we will proceed with a low-dose metoprolol to help control heart rate and reduced symptom burden. Advised patient to monitor blood pressures and to keep a log of it. Advised heart healthy diet, regular exercise, weight loss, adequate hydration, and med compliance. We will also obtain a stress echocardiogram to further evaluate her chest discomfort. Catheter ablation was briefly discuss potential option in the event of persistent symptoms or if medical therapy is ineffective. We will follow up in 4 months. In the interim, patient will call the office with any concerns or change in symptoms. This note was generated using voice recognition software. While every effort has been made to ensure accuracy and proper rail crew member, there may be occasional errors that could affect the content or meaning of the described symptoms. Orders: Orders CA echo stress exercise Today R07.9 - Chest pain, unspecified Basic Metabolic Panel 2 Months R00.2 - Palpitations Liver Panel 2 Months R00.2 - Palpitations Medications: New metoprolol succinate ER 25 mg PO DAILY 90 tabs 3RF Coding Level of Care Code Est Pt Level 4 (17500) Complex EM visit Add On G2211 Diagnoses Chest pain R07.9 Palpitations R00.2 Time Spent (min) 32 Comment Time spent in reviewing the chart, test results, assessment, counseling and documentation.
[2024-06-28 14:00] VITALS: BP 118/68; PULSE 79; BMI 33.1
--- OUTSIDE RECORDS SUMMARY | 2024-06-28 14:35 | XMS_ITS | Encounter Summary ---
Author Organization [employer] Address [address] [place] [address] Care Team Providers Care Leaflet Distributor Name Role Phone Liane Silva NP Primary Care Provider [phone] Reason for Visit * Reason Onset Date Comments Results 06/27/2024 Encounter Details Date Type Department Care Team (Latest Contact Info) Description 06/27/2024 Results Follow-Up [facility] MED[facility]INE [address] [place] [address] Minerva Steve MA CBC auto differential, Comprehensive Metabolic Panel, TSH W/Reflex to FT4 Social History Tobacco Use Types Packs/Day Years [...] housing situation today? I have maryan cifuentes 06/22/[address] you li ve. Do you have problems with any of the following? None of the above 06/22/2024 Food Insecurity Answer Date Recorded Within the past 12 months, y ou worried that your food would run out before you got money to buy more: Never True 06/22/2024 Within the past 12 months,th e food you bought just didn't last and you didn't have enough money to get more: Never True 10/2024 Transportation Answer Date Recorded In the past 12 months, has l ack of transportation kept you from medical appts, meetings, work or from getting things needed for daily living? No 06/22/2024 Utilities Answer Date Recorded In the past 12 months, has t he electric, gas, oil or water company threatened to shut off services in your home? No 06/22/2024 Depression Answer Date Recorded Patient Health Questionnaire-2 Score 0 01/26/2023 Internet Access Answer Date Recorded Internet Access Q1 Yes 06/22/2024 Internet Access Q2 Not on file 06/22/2024 Comments No Sex and Gender Information Value Date Recorded Sex Assigned at Female 12/14/2021 10:20 AM EDT Legal Sex Female 10:20 AM EDT Gender Identity Female 12/14/2021 10:20 AM EDT Sexual Orientation Straight 12/14/2021 10 :20 AM EDT documented as of this encounter Miscellaneous Notes * Telephone Encounter - Minerva Steve MA - 06/27/2024 11:54 AM EDT Related information to PT.PT understood. * Telephone Encounter - Minerva Steve MA - 06/27/2024 11:54 AM EDT ----- Message from Alanis Fuentes sent at 06/25/2024 11:15 AM EDT ----- Please let pt know her blood work was normal, she should hear from neuro soon ans please let us know if she has not ----- Message ----- From: Interface, Lab Results In Sent: 06/22/2024 6:04 PM EDT To: Alanis Fuentes NP documented in this encounter Plan of Treatment Upcoming Encounters Date Type Department Care Team (Late st Contact Info) Description 11/05/2024 8:00 AM EDT Office Visit [facility] ADULT DENTAL [address] [place] [address] Kacey Acosta documented as of this encounter Visit Diagnoses Not on filedocumented in this encounter Additional Health Concerns Assessment Noted Time PHQ-9 Depression Total Score: 0 01/27/20 3:01 PM EST documented as of this encounter Care Teams Leaflet Distributor Relationship Specialty Start Date End Date Liane Silva NP [address] [place] [address] PCP - General Family Medicine 12/08/22 documented as of this encounter
--- OUTSIDE RECORDS SUMMARY | 2024-06-28 14:35 | XMS_ITS | Clinical Summary ---
Author Organization [employer] Address [address] [facility] 7t [place] [address] Care Team Providers Care Electron Beam Photo Mask Maker Name Role Phone Liane Silva NP Primary Care Provider [phone] Allergies No known active allergies Medications aspirin-acetami [...] Noted Date Diagnosed Date Cervicogenic headache 06/22/2024 Assessment & Plan (06/24/2024 3:36 PM EDT): Referral to neurology Reassuring neur exam but these unilateral left sided headaches are severe Pt and mother aware of s/s requiring realtime imaging Keep headache journal trial abortive medication at onset Nausea 06/22/2024 Atypical odontalgia 01/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 No swollen [...] Encounters Date Type Department Care Team Description 06/27/2024 Results Follow-Up [facility] MEDICINE [address] [place] [address] Minerva Steve MA CBC auto differential, Comprehensive Metabolic Panel, TSH W/Reflex to FT4 06/22/2024 3:30 PM EDT Office Visit [facility] MEDICINE [address] [place] [address] Alanis Fuentes NP Cervicogenic headache (Primary Dx); Migraine without aura, not intractable, without status migrainosus; Nausea 06/22/2024 Travel 06/20/2024 Telephone [facility] MEDICINE [address] [place] [address] Liane Silva NP Referral 05/03/2024 Telephone [facility] MEDICINE [address] [place] [address] Liane Silva NP Durable Medical Equipment 04/27/2024 Population Health Risk Score [facility] () Department [address] [place] [phone] Provider, Population Health Generic from Last 3 Months Immunizations Immunization Administration Dates Next Due DTaP 09/02/2008, 6,04/12/2005,12/21,2004 [...] your housing situation today? I have maryan vane 06/22/[address] you li [...] Description 11/05/2024 8:00 AM EDT Office Visit [facility] ADULT DENTAL [address] [place] [address] Kacey Acosta Health Maintenance Due Date Last Done Comments Chlamydia and Gonorrhea Screening 2004 HIV Screening 2004 Family Planning (PISQ) 08/04/2019 Meningococcal B Vaccine (1 of 2 - Standard) 2020 Hepatitis C Screening 2022 Dental Prophylaxis 01/02/2023 07/01/2022, 1 , 06/09/2020, Additional history exists Pneumococcal Vaccine: Pediatrics (0 to 5 Years) and At-Risk Patients (6 to 49) Years) (1 of 2 - PCV) 08/04/2023 11/09/2005, 09/13/2005, 04/12/2005, Additional history exists COVID-19 Vaccine ( season) 2023 Influenza Vaccine (#1) 2023 3, 05/04/2022, 04/29/2021, Additional history exists Depression Screening 01/27/2024 01/26/2023, 01/27/20 23 Dental Oral Exam 07/05/2024 01/05/2024, , 12/14/2021, Additional history exists Dental X-Ray: [employer] 01/05/2025 01/05/20 24, 12/14/2021, 06/09/2020, Additional history exists Alcohol/Substance Use Screening 06/22/2025 06/22/2024 SDOH Screening 06/22/2025 06/22/2024 Tobacco Screening 06/22/2025 06/22/2024 DTaP/Tdap/Td Vaccines (7 - Td or Tdap) [...] Diagnosis Comments TSH W/REFLEX TO FT4 Routine 06/22/2024 4 :04 PM EDT Nausea COMPREHENSIVE METABOLIC PANEL Routine 06/22/2024 4:04 PM EDT Nausea CBC WITH AUTO DIFFERENTIAL Routine 06/22/2024 4:04 PM EDT Nausea METANEPHRINES, FRACT, FREE, LC/MS/MS, PLASMA Routine 04/24/2024 [...] Relevant to Health Maintenance Results * TSH W/Reflex to FT4 (06/22/2024 4:04 PM EDT) Only the most recent of2 resultswithin the time period is included. TSH reflex Free T4 2.35 0.32 - 4.0 uIU/mL [facility] Blood Venous blood specimen / Unknown 06/22/2024 4:04 PM EDT 06/22/2024 5:40 PM EDT us Alanis Fuentes NP LAB BLOOD ORDERABLES Final Resul t [facility] [address] [place] [phone] * (ABNORMAL) CBC auto differential (06/22/2024 4:04 PM EDT) White Blood Count 7.0 4.8 - 10.8 X10*3/uL [facility] Red Blood Count 4.12(L) 4.20 - 5.50 X10*6/uL [facility] Hemoglobin 12.4 12.0 - 16.0 g/dl [facility] Hematocrit 35.1(L) 37.0 - 47.0 % [facility] Mean Corpuscular Volume 85.2 80.0 - 98.0 fL [facility] Mean Corpuscular Hemoglobin 30.1 27.0 - 33.0 pg [facility] Mean Corpuscular HGB Conc 35.3(H) 31.0 - 35.0 g/dl [facility] Red Cell Distribution Width 11.9 11.0 - 16.0 % [facility] Platelet Count 340 160 - 400 X10*3/uL [facility] Mean Platelet Volume 11.4 9.4 - 12.3 fL [facility] Neutrophils Percent Auto 58.7 45 - 73 % [facility] Imm Gran Pct Auto 0.1 0.0 - 0.4 % [facility] Lymphocytes Percent Auto 31.0 20 - 40 % [facility] Monocytes Percent Auto 5.6 2 - 11 % [facility] Eosinophils Percent Auto 4.0 0 - 4 % [facility] Basophils Percent Auto 0.6 0 - 2 % [facility] NRBC Pct Auto 0.0 0.0 - 0.2 /100WBC [facility] Neutrophils Absolute Auto 4.1 2.0 - 8.3 x10*3/uL [facility] Imm Gran Abs Auto 0.01 0.00 - 0.03 X10*3/uL [facility] Lymphocytes Absolute Auto 2.2 1.2 - 4.9 X10*3/uL [facility] Monocytes Absolute Auto 0.4 0.1 - 1.2 X10*3/uL [facility] Eosinophils Absolute Auto 0.3 0.0 - 0.4 X10*3/uL [facility] Basophils Absolute Auto 0.0 0.0 - 0.2 X10*3/uL [facility] NRBC Abs Auto 0.000 0.0 - 0.012 X10*3/uL [facility] Blood Venous blood specimen / Unknown 06/22/2024 4:04 PM EDT 06/22/2024 5:40 PM EDT us Alanis Fuentes TINSM[employer] HELPER LAB BLOOD ORDERABLES Final Resul t [facility] [address] [place] [address] [phone] * Comprehensive Metabolic Panel (06/22/2024 4:04 PM EDT) Sodium 140 135 - 145 mmol/L [facility] Potassium 4.0 3.3 - 5.1 mmol/L [facility] Chloride 105 96 - 108 mmol/L [facility] Carbon Dioxide 26 22 - 29 mmol/L [facility] Anion Gap 13 12 - 20 [facility] Urea Nitrogen (BUN) 10 9 - 16 mg/dL [facility] Creatinine, Serum 0.76 0.5 - 1.4 mg/dL [facility] Estimated Glomerular Filt Rate >60 [facility] Comment:Chronic Kidney Disea se: Estimated GFR < 60 mL/min/[id number] Kidney Disease: Estimated GFR < 15 mL/min/1.73m2 Glucose 115 60 - 115 mg/dL [facility] Calcium 9.5 8.4 - 10.2 mg/dL [facility] Bilirubin, Total 0.3 0.0 - 1.0 mg/dL [facility] Aspartate Amino Transferase 23 5 - 31 U/L [facility] Alanine Aminotransferase 13 0 - 31 U/L [facility] Total Protein 7.8 6.5 - 8.0 g/dL [facility] Albumin Level 4.6 3.5 - 5.0 g/dL [facility] Alkaline Phosphatase 77 39 - 117 U/L [facility] Blood Venous blood specimen / Unknown 06/22/2024 4:04 PM EDT 06/22/2024 5:40 PM EDT us Alanis Fuentes NP LAB BLOOD ORDERABLES Final Resul t [facility] [address] [place] [address] [phone] * Metanephrines, Fractionated, Free, LC/MS/MS, Plasma (04/24/2024 2:00 PM EDT) Metanephrine, Free <25 <=57 pg/mL [facility] Comment:This test was develo ped and its analytical performancecharacteristics have been determined by [employer] [facility] [place], [place]. It hasnot been cleared or approved by the U.S. Food and DrugAdministration. This assay has been validated pursuantto the CLIA regulations and is used for clinicalpurposes. Normetanephrine, Free 72 <=148 pg/mL [facility] Comment:This test was develo ped and its analytical performancecharacteristics have been determined by [employer] [place], [place]. It hasnot been cleared or approved by the U.S. Food and DrugAdministration. This assay has been validated pursuantto the CLIA regulations and is used for clinicalpurposes. Total, Free (MN+NMN) 72 <=205 pg/mL [facility] Comment: For additional information, please refer tohttp://education.ImageTag/faq/MetFractFree(This link is being provided for informational/educatioinformational/educational purposes [...] its analytical performancecharacteristics have been determined by [facility] [place], [place]. It hasnot been cleared or approved by the U.S. Food and DrugAdministration. This assay has been validated pursuantto the CLIA regulations and is used for clinicalpurposes.THIS TEST WAS PERFORMED AT:[id number] [place], [place] ??[id number] HARGROVE MD,PHD 04/24/2024 2:00 PM EDT 04/24/2024 2:00 PM EDT us Generic External Data Provider LAB BLOOD ORDERAB LES Final Result [facility] [address] [place] [phone] * (ABNORMAL) CBC (04/24/2024 2:00 PM EDT) White Blood Count 9.6 4.8 - 10.8 X10*3/uL [facility] Red Blood Count 4.22 4.20 - 5.50 X10*6/uL [facility] Hemoglobin 12.7 12.0 - 16.0 g/dl [facility] Hematocrit 35.9(L) 37.0 - 47.0 % [facility] Mean Corpuscular Volume 85.1 80.0 - 98.0 fL [facility] Mean Corpuscular Hemoglobin 30.1 27.0 - 33.0 pg [facility] Mean Corpuscular HGB Conc 35.4(H) 31.0 - 35.0 g/dl [facility] Red Cell Distribution Width 12.2 11.0 - 16.0 % [facility] Platelet Count 269 160 - 400 X10*3/uL [facility] Mean Platelet Volume 10.9 9.4 - 12.3 fL [facility] NRBC Pct Auto 0.0 0.0 - 0.2 /100WBC [facility] NRBC Abs Auto 0.000 0.0 - 0.012 X10*3/uL [facility] 04/24/2024 2:00 PM EDT 04/24/2024 2:00 PM EDT us Generic External Data Provider LAB BLOOD ORDERAB LES Final Result Performing Organization Address [facility] de Phone Number [facility] [address] [place] [phone] [phone] * Magnesium (04/24/2024 2:00 PM EDT) Magnesium 1.8 1.6 - 2.6 mg/dL [facility] 04/24/2024 2:00 PM EDT 04/24/2024 2:00 PM EDT Generic External Data Provider LAB BLOOD ORDERAB LES Final Result Performing Organization Address [facility] de Phone Number [facility] [address] [place] [phone] * (ABNORMAL) Basic Metabolic Panel (04/24/2024 2:00 PM EDT) Pathologist [facility] Sodium 141 135 - 145 mmol/L [facility] Potassium 4.0 3.3 - 5.1 mmol/L [facility] Chloride 110(H) 96 - 108 mmol/L [facility] Carbon Dioxide 23 22 - 29 mmol/L [facility] Anion Gap 12 12 - 20 [facility] Urea Nitrogen (BUN) 11 9 - 16 mg/dL [facility] Creatinine, Serum 0.61 0.5 - 1.4 mg/dL [facility] Estimated Glomerular Filt Rate >60 [facility] Comment:Chronic Kidney Disea se: Estimated GFR < 60 mL/min/1.11v5Ggusxp Kidney Disease: Estimated GFR < 15 mL/min/1.73m2 Glucose 82 60 - 115 mg/dL [facility] Calcium 9.7 8.4 - 10.2 mg/dL [facility] 04/24/2024 2:00 PM EDT 04/24/2024 2:00 PM EDT Generic External Data Provider LAB BLOOD ORDERAB LES Final Result Performing Organization Address [facility] Co de Phone Number [facility] [address] [place] [address] [phone] from Last 3 Months Insurance [place] D[place] Care Teams Electron Beam Photo Mask Maker Relationship Specialty Start Date End Date Liane Silva NP [address] [place] [address] PCP - General Family Medicine 12/08/22
--- OUTSIDE RECORDS SUMMARY | 2024-06-28 14:35 | XMS_ITS | Encounter Summary ---
Author Organization [employer] Address [address] [facility] 7t [place] [address] Care Team Providers Care Rn Building Name Role Phone Liane Silva ICE GUARD INSPECTOR Primary Care Provider [phone] Reason for Visit * Reason Onset Date Comments Nurse Triage 12/17/2022 Encounter Details Date Type Department Care Team (Late st Contact Info) Description 12/17/2022 Telephone [facility] MEDICINE [address] [place] [address] Liane Silva NP [address] [place] [address] Nurse Triage Social History Tobacco Use Types [...] Called pt. No answer. Left message on [phone] to please call back [facility] nurses at [phone]. RE: Neck pain. Called alternate number [phone]. Mother answered phone. Pt. Suffers from migraines but, on the back of pt. Neck is hurting on the back of her neck. Pt. Has not done any neck stretching exercises and Tylenol and Motrin not helping. * Telephone Encounter - Estefany Farley - 12/17/2022 2:05 PM EDT Tc from [place] returning call and requesting a call back. * Telephone Encounter - Daria Spann RN - 12/17/2022 1:52 PM EDT Call returned to [facility] [place] for triage. No answer LVM to return call to [facility] triage line [phone]. Mom not on HIPAA. * Telephone Encounter [...] Description 11/05/2024 8:00 AM EDT Office Visit [facility] ADULT DENTAL [address] [place] [address] Kacey Acosta documented as of this encounter Visit Diagnoses Not on filedocumented in this encounter Additional Health Concerns Assessment Noted Time PHQ-9 Depression Total Score: 1 05/07/19 1:36 PM EDT documented as of this encounter Care Teams Rn Building Relationship Specialty Start Date End Date Liane Silva NP [address] [place] [address] PCP - General Family Medicine 12/08/22 documented as of this encounter
--- OUTSIDE RECORDS SUMMARY | 2024-06-28 14:36 | XMS_ITS | Encounter Summary ---
Author Organization [employer] Address [address] [place] [address] Care Team Providers Care Note Specialist Name Role Phone Liane Silva NP Primary Care Provider [phone] Encounter Details Date Type Department Care Team ([facility] st Contact Info) Description 02/24/2023 Abstract [facility] MED[facility] [address] [place] [address] Liane Silva NP [address] [place] [address] Social History Tobacco Use Types Packs/Day Years [...] Visit [facility] ADULT DENTAL [address] [place] [address] Kacey Acosta documented as of this encounter Visit Diagnoses Not on filedocumented in this encounter Additional Health Concerns Assessment Noted Time PHQ-9 Depression Total Score: 0 01/27/20 3:01 PM EST documented as of this encounter Care Teams Note Specialist Relationship Specialty Start Date End Date Liane Silva NP [address] [place] [address] PCP - General Family Medicine 12/08/22 documented as of this encounter
--- OUTSIDE RECORDS SUMMARY | 2024-06-28 14:36 | XMS_ITS | Encounter Summary ---
Author Organization [employer] Address [address] [place] [address] Care Team Providers Care Foot Setter Name Role Phone Liane Silva NP Primary Care Provider [phone] Encounter Details Date Type Department Care Team ([facility] st Contact Info) Description 02/10/2023 Abstract [facility] ADULT DENTAL [address] [place] [address] Brian Jones, DMD [address] [place] [address] Social History Tobacco Use Types Packs/Day Years [...] Description 11/05/2024 8:00 AM EDT Office Visit [facility] ADULT DENTAL [address] [place] [address] Kacey Acosta documented as of this encounter Visit Diagnoses Not on filedocumented in this encounter Additional Health Concerns Assessment Noted Time PHQ-9 Depression Total Score: 0 01/27/20 3:01 PM EST documented as of this encounter Care Teams Foot Setter Relationship Specialty Start Date End Date Linae Silva NP [address] [place] [address] PCP - General Family Medicine 12/08/22 documented as of this encounter
--- OUTSIDE RECORDS SUMMARY | 2024-06-28 14:36 | XMS_ITS | Encounter Summary ---
Author Organization [employer] Address [address] [facility] 7t [place] [address] Care Team Providers Care Process Safety Manager Name Role Phone Liane Silva NP Primary Care Provider [phone] Reason for Visit * Reason Comments Med Refill Encounter Details Date Type Department Care Team (Late st Contact Info) Description 02/23/2023 Refill [facility] MEDICINE [address] [place] [address] Liane Silva NP [address] [place] [address] Neck pain Social History Tobacco Use Types [...] Description 11/05/2024 8:00 AM EDT Office Visit [facility] ADULT DENTAL [address] [place] [address] Kacey Acosta documented as of this encounter Visit Diagnoses Diagnosis Neck pain Cervicalgia documented in this encounter Additional Health Concerns Assessment Noted Time PHQ-9 Depression Total Score: 0 01/27/20 3:01 PM EST documented as of this encounter Care Teams Process Safety Manager Relationship Specialty Start Date End Date Liane Silva NP [address] [place] [address] PCP - General Family Medicine 12/08/22 documented as of this encounter
--- OUTSIDE RECORDS SUMMARY | 2024-06-28 14:36 | XMS_ITS | Encounter Summary ---
Author Organization [employer] Address [address] [facility] [place] [address] Care Team Providers Care Fur Blower Operator Name Role Phone Liane Silva NP Primary Care Provider [phone] Encounter Details Date Type Department Care Team ([facility] st Contact Info) Description 02/24/[address] [facility] MEDICINE [address] [place] [address] Liane Silva NP [address] [place] [address] Social History Tobacco Use Types Packs/Day Years [...] Description 11/05/2024 8:00 AM EDT Office Visit [facility] ADULT DENTAL [address] [place] [address] Kacey Acosta documented as of this encounter Visit Diagnoses Not on filedocumented in this encounter Additional Health Concerns Assessment Noted Time PHQ-9 Depression Total Score: 0 01/27/20 3:01 PM EST documented as of this encounter Care Teams Fur Blower Operator Relationship Specialty Start Date End Date Liane Silva NP [address] [place] [address] PCP - General Family Medicine 12/08/22 documented as of this encounter
--- OUTSIDE RECORDS SUMMARY | 2024-06-28 14:36 | XMS_ITS | Encounter Summary ---
Author Organization [employer] Address [address] [place] [address] Care Team Providers Care Pearl Stringer Name Role Phone Liane Silva NP Primary Care Provider [phone] Encounter Details Date Type Department Care Team ([facility] st Contact Info) Description 01/26/2023 Abstract [facility] MEDICINE [address] [place] [address] Liane Silva NP [address] [place] [address] Social History Tobacco Use Types Packs/Day Years [...] AM EDT documented as of this encounter Functional Status * Over the past 2 weeks, how often have you been bothered by any of the following problems? Question Answer Date of Assessment Author Patient Health Questionnaire-2 Score 0 01/14 3:01 PM Ernst Buck [place] * Over the past 2 weeks, how often have you been bothered by any of the following problems? Question Answer Date of Assessment Author Little interest or pleasure in doing things Not at all 01/26/2023 3:01 PM Ernst Buck M A Feeling down, depressed, or hopeless Not at all 01/26/2023 3:01 PM Ernst Buck M A Trouble falling or staying asleep, or sleeping too much Not at all 01/26/2023 3:01 PM Ernst Buck MA Feeling tired or having bozena le energy Not at all 01/26/2023 3:01 PM Ernst Buck M A Poor appetite or overeating Not at all 01/26/2023 3: 01 PM Ernst Buck MA Feeling bad about yourself - or that you are a failure or have let yourself or your family down Not at all 01/26/2023 3:01 PM Ernst You ra, [place] Trouble concentrating on thi ngs, such as reading the newspaper or watching television Not at all 01/26/2023 3:01 PM Ernst Buck M A Moving or speaking so slowly that other people could have noticed? Or the opposite - being so fidgety or restless that you have been moving around a lot more than usual. Not at all 01/26/2023 3:01 PM Ernst Buck M A Thoughts that you would be better off or hurting yourself in some way Not at all 01/26/2023 3:01 PM Ernst Buck MA Patient Health Questionnaire -9 Score 0 01/26/2023 3:01 PM Ernst Buck M A documented as of this encounter Plan of Treatment Upcoming Encounters Date Type Department Care Team (Late st Contact Info) Description 11/05/2024 8:00 AM EDT Office Visit [facility] ADULT DENTAL [address] [place] [address] Kacey Acosta documented as of this encounter Visit Diagnoses Not on filedocumented in this encounter Additional Health Concerns Assessment Noted Time PHQ-9 Depression Total Score: 0 01/27/20 3:01 PM EST documented as of this encounter Care Teams Pearl Stringer Relationship Specialty Start Date End Date Liane Silva NP [address] [place] [address] PCP - General Family Medicine 12/08/22 documented as of this encounter
== END 2024-06-28 14:22 | disposition home or self-care (01) ==
LOC: HO.HCS 13:55
PROVIDERS: PCP Nurse Practitioner
DX: R07.9 Chest pain, unspecified (principal); R00.2 Palpitations
CPT/HCPCS: 99214

== ENCOUNTER → 2024-06-28 13:55 | Outpatient (BNVA) | payer MEDICAID, SELFPAY | PROVIDERS: PCP Nurse Practitioner | DX: R07.9 Chest pain, unspecified (principal); R00.2 Palpitations | CPT/HCPCS: 99212 ==

== ENCOUNTER → 2024-08-15 10:50 | Outpatient (REF) | payer MEDICAID, SELFPAY ==
--- NOTE | 2024-08-15 10:52 | CA_ITS ---
Acquisition Time: 2024-08-15 11:05:34 Total Exercise Time: 00:05:05 Test Indications: chest pain Medications: Protocol: ODIN Max HR: 190 BPM 95% of Pred: 200 BPM Max BP: 138/80 mmHG Max Work Load: 7.0 METS Exercise stress test with exercise 5 mins 5 secs of Odin Protocol, achieving 93% MPHR, with reports of 5/10 mid chest tightness and mild SOB, without any arrythmias, with normotensive repsonse to exercise. Without any EKG changes meeting criteria for ischemia. In recovery, breathing returned to baseline and chest tightness resolved. Echo images obtained by tech at rest adn post peak exercise. Definity contrast utilized. Test reviewed with Dr. Stoddard. Referred By: Luis Angel Grullon Electronically Signed By: Luis Angel Grullon
--- OUTSIDE RECORDS SUMMARY | 2024-08-15 11:30 | XMS_ITS ---
Author Name [facility] Organization Unknown History of Medication Use Medication Directions Dispensed Refills Start Date End Date Stat ibuprofen (MOTRIN) 200 MG tablet Take 400 mg by mouth every 6 (six) hours as needed for Pain active Problems Problem Status Onset Date Problem Type Date of Resoluti on Source Arthralgia of multiple joints active EncounterDiagnosisAct [facility] Encounters Encounter Type Encounter Reason Primary Diagnosis Location Date Ambulatory [facility] 08/20/2021 Care Team Organization Name Specialty Phone Email Start Date End Da te [facility] Farrukh Wooten Primary Care 08/21/2021
== END ==
LOC: HO.CARD 10:50
DX: R07.9 Chest pain, unspecified (principal)
CPT/HCPCS: 93350; Q9957

== ENCOUNTER → 2024-08-15 10:52 | Outpatient (BNV) | payer MEDICAID, SELFPAY | DX: R07.9 Chest pain, unspecified (principal); R06.02 Shortness of breath | CPT/HCPCS: 93016; 93018; 93350; 93352 ==

== ENCOUNTER 2024-09-20 14:07 | Outpatient (AMB) | payer MEDICAID, SELFPAY ==
--- OUTSIDE RECORDS SUMMARY | 2024-09-20 14:14 | XMS_ITS | Clinical Summary ---
Author Organization [employer] Address [address] [facility] [address] [place] [address] Care Team Providers Care Golf Course Laborer Name Role Phone Liane Silva NP Primary Care Provider [phone] Allergies No known active allergies Medications aspirin-acetamin [...] on 04/22/2023 hydrOXYzine HCl (Atarax) 25 MG tabletIndication s:Chest [...] TWICE A DAY 60 tablet 4 Active SUMAtriptan (Imitrex) 25 MG tabletIndication s:Cervicogenic headache,Migrain e without aura, not intractable, without status migrainosus Take 1 tablet (25 mg) by mouth 1 (one) time if needed for migraine for up to 9 doses. May repeat dose once in 2 hours if no relief. Do not exceed 2 doses in 24 hours. 9 tablet 5 Active Active Problems Problem Noted Date Diagnosed [...] proceed to the O.R. without further testing C LEAR. Normal oral exam 01/27/2023 Assessment & Plan [...] shoulder pain -seen by rheumatology in 2021. 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 No swollen [...] Department Care Team Description 06/27/2024 Results Follow-Up [facility] [address] [place], [place] [phone] Minerva Steve MA CBC auto differential, Comprehensive Metabolic Panel, TSH W/Reflex to FT4 06/22/2024 3:30 PM EDT Office Visit [facility] [address] [place], [place] [phone] Alanis Fuentes NP Cervicogenic headache (Primary Dx); Migraine without aura, not intractable, without status migrainosus; Nausea 06/22/2024 Travel 06/20/2024 Telephone [facility] [address] [place] [address] Liane Silva NP Referral from Last 3 Months Immunizations Immunization Administration Dates Next Due DTaP 09/02/2008, 6,04/12/2005,12/21,2004 HPV 9-Valent 02/17/2016,08/26/2015 Hep A, ped/adol, 2 dose 05/21/2008,09/13/2005 Hep B, Adolescent or Pediatric 2004,2004 Hep B, adult 04/12/2005 Hib (HbO) 11/09/2005,2004,2004 IPV 09/02/2008, 6,2004,10/20 Influenza Whole 12/19/2018 [...] 93 06/22/2024 3:38 PM EDT Temperature 36.2 C (97.1 F) 06/22/2024 3:38 PM EDT Respiratory Rate 18 06/22/2024 3:38 PM EDT [...] 11/05/2024 8:00 AM EDT Office Visit [facility] ADULT DENT[facility] [address] [place] [address] Kacey Acosta Health Maintenance Due Date Last Done Comments Chlamydia and Gonorrhea Screening 2004 HIV Screening 2004 Family Planning (PISQ) 08/04/2019 Meningococcal B Vaccine (1 of 2 - Standard) 2020 Hepatitis C Screening 2022 Dental Prophylaxis 01/02/2023 07/01/2022, 1 , 06/09/2020, Additional history exists Pneumococcal Vaccine: Pediatrics (0 to 5 Years) and At-Risk Patients (6 to 49) Years (1 of 2 - PCV) 08/04/2023 11/09/2005, 09/13/2005, 04/12/2005, Additional history exists COVID-19 Vaccine ( - season) 2023 Depression Screening 01/27/2024 01/26/2023, 01/27/20 23 Dental Oral Exam 07/05/2024 01/05/2024, , 12/14/2021, Additional history exists Influenza Vaccine (#1) 2024 , 05/04/2022, 04/29/2021, Additional history exists Dental X-Ray: Bitewings 01/05/2025 01/05/20 24, 12/14/2021, 06/09/2020, Additional history exists Alcohol/Substance Use Screening 06/22/2025 06/22/2024 Disability Screening 06/22/2025 06/22/2024 SDOH Screening 06/22/2025 06/22/2024 Tobacco Screening 06/22/2025 06/22/2024 DTaP/Tdap/Td Vaccines (7 - Td or Tdap) 08/25/2025 08/26/2015, 09/02/2008, 11/09/2005, Additional history exists Dental X-Ray: Full Mouth 01/05/2027 024, 11/11/2023, 06/28/2013 Lipid Panel 05/05/2027 05/04/2022 Zoster Vaccines (1 of 2) 2054 RSV Patients and Patients Aged 60 years or older (1 - 1-dose 75+ series) 08/04/2079 Hepatitis B Vaccines Completed 04/12/2005, 2004, 2004 HIB Vaccines Completed 11/09/2005, 08/2004, 2004 Hepatitis A Vaccines Completed 05/21/2008, 09/14/19 IPV Vaccines Completed 09/02/2008, 03/18, 2004, Additional history exists HPV Vaccines Completed 02/17/2016, 08/26/2015 Meningococcal Vaccine Completed 04/29/2021, 016 RSV under 20 months Aged Out No [...] DIFFERENTIAL Routine 06/22/2024 4:04 PM EDT Nausea INTRAORAL - COMPLETE SERIES OF RADIOGRAPHIC IMAGES Routine 01/05/2024 1:00 PM EST PERIODIC ORAL EVALUATION - ESTABLISHED PATIENT Routine 01/05/2024 1:00 PM EST Full PROPHYLAXIS - ADULT Routine 07/01/2022 1:00 PM EDT LIPID PANEL, STANDARD Routine 05/04/2022 3:13 PM EDT Obesity with body mass index (BMI) in 95th to 98th percentile for age in pediatric patient, unspecified obesity type, unspecified whether serious comorbidity present from Last 3 Months or Most Recently Relevant to Health Maintenance Results * TSH W/Reflex to FT4 (06/22/2024 4:04 PM EDT) TSH reflex Free T4 2.35 0.32 - 4.0 uIU/mL [facility] Blood Venous blood specimen / Unknown 06/22/2024 4:04 PM EDT 06/22/2024 5:40 PM EDT us Alanis Fuentes NP LAB BLOOD ORDERABLES Final Resul t [facility] [address] [place] [phone] * (ABNORMAL) CBC auto differential (06/22/2024 4:04 PM EDT) White Blood Count 7.0 4.8 - 10.8 X10*3/uL [facility] Red Blood Count 4.12(L) 4.20 - 5.50 X10*6/uL [facility] Hemoglobin 12.4 12.0 - 16.0 g/dl [facility] Hematocrit 35.1(L) 37.0 - 47.0 % [facility] Mean Corpuscular Volume 85.2 80.0 - 98.0 fL [facility] Mean Corpuscular Hemoglobin 30.1 27.0 - 33.0 pg [facility] Mean Corpuscular HGB Conc 35.3(H) 31.0 - 35.0 g/dl [facility] Red Cell Distribution Width 11.9 11.0 - 16.0 % [facility] Platelet Count 340 160 - 400 X10*3/uL [facility] Mean Platelet Volume 11.4 9.4 - 12.3 fL [facility] Neutrophils Percent Auto 58.7 45 - 73 % [facility] Imm Gran Pct Auto 0.1 0.0 - 0.4 % [facility] Lymphocytes Percent Auto 31.0 20 - 40 % [facility] Monocytes Percent Auto 5.6 2 - 11 % [facility] Eosinophils Percent Auto 4.0 0 - 4 % [facility] Basophils Percent Auto 0.6 0 - 2 % [facility] NRBC Pct Auto 0.0 0.0 - 0.2 /100WBC [facility] Neutrophils Absolute Auto 4.1 2.0 - 8.3 x10*3/uL [facility] Imm Gran Abs Auto 0.01 0.00 - 0.03 X10*3/uL [facility] Lymphocytes Absolute Auto 2.2 1.2 - 4.9 X10*3/uL [facility] Monocytes Absolute Auto 0.4 0.1 - 1.2 X10*3/uL [facility] Eosinophils Absolute Auto 0.3 0.0 - 0.4 X10*3/uL [facility] Basophils Absolute Auto 0.0 0.0 - 0.2 X10*3/uL [facility] NRBC Abs Auto 0.000 0.0 - 0.012 X10*3/uL [facility] Blood Venous blood specimen / Unknown 06/22/2024 4:04 PM EDT 06/22/2024 5:40 PM EDT us Alanis Fuentes DISTANCE LEARNING UNIT LEADER LAB BLOOD ORDERABLES Final Resul t [facility] [address] [place] [phone] [phone] * Comprehensive Metabolic Panel (06/22/2024 4:04 PM EDT) Sodium 140 135 - 145 mmol/L [facility] Potassium 4.0 3.3 - 5.1 mmol/L [facility] Chloride 105 96 - 108 mmol/L [facility] Carbon Dioxide 26 22 - 29 mmol/L [facility] Anion Gap 13 12 - 20 [facility] Urea Nitrogen (BUN) 10 9 - 16 mg/dL [facility] Creatinine, Serum 0.76 0.5 - 1.4 mg/dL [facility] Estimated Glomerular Filt Rate >60 [facility] Comment:Chronic Kidney Disea se: Estimated GFR < 60 mL/min/1.51v2Ddmjse Kidney Disease: Estimated GFR < 15 mL/min/1.73m2 Glucose 115 60 - 115 mg/dL [facility] Calcium 9.5 8.4 - 10.2 mg/dL [facility] Bilirubin, Total 0.3 0.0 - 1.0 mg/dL [facility] Aspartate Amino Transferase 23 5 - 31 U/L [facility] Alanine Aminotransferase 13 0 - 31 U/L [facility] Total Protein 7.8 6.5 - 8.0 g/dL [facility] Albumin Level 4.6 3.5 - 5.0 g/dL [facility] Alkaline Phosphatase 77 39 - 117 U/L [facility] Blood Venous blood specimen / Unknown 06/22/2024 4:04 PM EDT 06/22/2024 5:40 PM EDT us Alanis Fuentes NP LAB BLOOD ORDERABLES Final Resul t [facility] [address] [place] [phone] * (ABNORMAL) Lipid Panel, Standard (05/04/2022 3:13 PM EDT) Cholesterol, Total 183(H) <170 mg/dL [facility] HDL Cholesterol 53 >45 mg/dL [facility] Triglycerides 92(H) <90 mg/dL [facility] LDL Cholesterol 110(H) <110 mg/dL (calc) [facility] Comment: LDL-C is now calculated using the Carlos-Naidu calculation, which is a validated novel method providing better accuracy than the Friedewald equation in the estimation of LDL-C. Carlos SS et al. ALOK. 2013;310(19): 1237-1756 (http://education.K Spine/faq/PWB805) Chol/HDLC Ratio 3.5 <5.0 (calc) [facility] Non-HDL Cholesterol 130(H) <120 mg/dL (calc) [facility] Comment: For patients with diabetes plus 1 major ASCVD risk factor, treating to a non-HDL-C goal of <100 mg/dL (LDL-C of <70 mg/dL) is considered a therapeutic option. Blood Venous blood specimen / Unknown 05/04/2022 3:13 PM EDT 05/04/2022 3:13 PM EDT Narrative [facility] - 05/05/2022 5:13 AM EDT FASTING:YES FASTING: YES us Farrukh Wooten MD LAB BLOOD ORDERABLES Final Resu lt [facility] [address] [facility], [facility], [place] [address] [facility] [address] [place] [phone] from Last 3 Months or Most Recently Relevant to Health Maintenance [place] STAND CHILD D[place]AL[place] Care Teams Golf Course Laborer Relationship Specialty Start Date End Date Liane Silva NP [address] [place] [phone] PCP - General Family Medicine 12/08/22
--- OUTSIDE RECORDS SUMMARY | 2024-09-20 14:14 | XMS_ITS | Clinical Summary ---
Author Organization [facility] Address [address] [place] [address] Phone Support Name Relationship Address Phone Mich Larry Personal Relationship [address] [place] [address] Care Team Providers Care Preschool Assistant Teacher Name Role Phone Farrukh Wooten MD Primary Care Provider Medications aspirin-acetami nophen-caffeine (EXCEDRIN MIGRAINE) 250-250-65 mg per tablet Take 1 tablet by mouth every 6 (six) hours as needed for pain (specific location in comments). Active meloxicam (MOBIC) 7.5 MG tablet Take 1 tablet (7.5 mg total) by mouth daily. 30 tablet 1 03/19/2020 Active Social History Tobacco Use Types Packs/Day Years Used Date Smoking Tobacco: Never Assessed Education Answer Date Recorded Are you interested in more education? Not on dannie e 06/11/2022 Are you concerned about learning? Not on file 06/11/2022 No 06/11/2022 No 06/11/2022 Digital Access Answer Date Recorded No 07/13/2022 No 07/13/2022 No 07/13/2022 Reliable internet access at home? Not on file 07/13/2022 Device with a working camera? Not on file Comments Unknown Sex and Gender Information Value Date Recorded Sex Assigned at Not on file Legal Sex Female 9:58 AM EDT Gender Identity Not on file Sexual Orientation Not on file Last Filed Vital Signs Vital Sign Reading Time Taken Comments Blood Pressure 120/76 03/19/2020 2:01 PM EST Pulse 68 03/19/2020 2:01 PM EST Temperature 36.8 C (98.2 F) 03/19/2020 2:01 PM EST Respiratory Rate 16 03/19/2020 2:01 PM EST Oxygen Saturation - - Inhaled Oxygen Concentration - - Weight 66.5 kg (146 lb 9.6 oz) 03/19/2020 2:01 P M EST Height 154 cm (5' 0.63 ) 03/19/2020 2:01 PM EST Body Mass Index 28.04 03/19/2020 2:01 PM EST Plan of Treatment Health Maintenance Due Date Last Done Comments DEVELOPMENTAL/BEHAVIORAL SCREENING (PHQ, PSC, or SWYC) 08/04/2007 DEPRESSION SCREENING 2016 SMOKING Hx and SMOKELESS TOBACCO SCREENING 2017 CHLAMYDIA SCREENING 2020 MENINGOCOCCAL VACCINES (B) (1 of 2 - Standard) 2020 ADOLESCENT UNIVERSAL LIPID SCREENING 2021 HEPATITIS C SCREENING 2022 HIV ONE-TIME SCREENING (18-65 YEARS) 2022 COVID-19 VACCINE (2023- season) 2023 COMBINED DTaP,Tdap,Td (7 - Td or Tdap) 08/25/2025 08/26/2015, 09/02/2008, 11/09/2005, Additional history exists HIB VACCINES Completed 11/09/2005, 08/2004, 2004 PNEUMOCOCCAL VACCINES (0-49 years) Aged Out 11/09/2005, 09/13/2005, 04/12/2005, Additional history exists No longer eligible based on patient's age to complete this topic HEPATITIS A VACCINES Completed 05/21/2008, 09/14/19 MMR VACCINES Completed 09/02/2008, 09/13/2005 VARICELLA VACCINES Completed 09/02/2008, 09/13/2005 HPV VACCINES Completed 02/17/2016, 08/26/2015 MENINGOCOCCAL VACCINES (ACWY) Completed 04/29/2021, 08/26/2015 Medical Devices Not on file Insurance [address] [address] [facility] C3 ACO C3 ACO C3 ACO C3 ACO C3 ACO C3 ACO C3 ACO C3 ACO C3 ACO C3 ACO C3 ACO C3 ACO C3 ACO Care Teams Preschool Assistant Teacher Relationship Specialty Start Date End Date Farrukh Wooten MD [address] [place] [phone] PCP - General Pediatrics 09/01/17 Additional Source Comments The information contained in this document represents components of the legal health record. It is not the complete legal health record.[facility]
--- NOTE | 2024-09-20 14:34 | A.OFFVIS_ITS ---
Intake Visit Reasons: [facility] Allergies No Known Allergies (No Known Allergies*) Allergy (Verified 09/26/23 19:28) HPI Comments Details: The patient is a 19-year-old female presenting with neck pain and migraine. She reports a long-standing history of migraines, which have become progressively more frequent and intense, occurring almost daily. The pain originates from the neck and radiates upward to the face. Associated symptoms include nausea, sensitivity to environmental stimuli, dizziness, and unilateral facial pain. The intensity of her migraines impedes daily activities, and she struggles with head movement due to exacerbated symptoms. Her attempts at relief using Excedrin have been largely ineffective. Cervical spine imaging has shown vertebral misalignment, prompting consideration for further diagnostic work-up. [facility] Medical History (Updated 09/20/24 @ 14:45 by Luna Waldron MD) Cervicogenic headache Migraine without aura Mild intermittent asthma without complication Scoliosis Polyarticular juvenile idiopathic arthritis Obesity HLD (hyperlipidemia) Migraine Rheumatoid arthritis Family History Father No problems noted. Mother No problems noted. Social History Patient Tobacco Use Status: Never used Tobacco Review of Systems Const Details: - Neurological: Reports migraines, nausea, dizziness, light sensitivity, sound sensitivity, facial pain, left-sided eye closure, right-sided numbness, and t ingling. - Musculoskeletal: Reports neck pain and vertebral misalignment. Physical Exam Neuro Other: Mental Status: Alert and oriented to person, place, and time. Normal attention. Normal spontaneous speech, fluency, and comprehension. No obvious issues with mood and memory. Affect is appropriate. Cranial Nerves: CN II: Visual salcedo full to confrontation, visual acuity intact. CN III, IV, : Pupils equal, round, reactive to light and accommodation. Extraocular movements are normal. CN V: Facial sensation is normal. CN VII: Facial movements symmetrical. CN VIII: Hearing intact to bedside conversation is normal. CN IX, X: Palate elevates symmetrically. CN XI: Shoulder shrug and head turn symmetrical. CN XII: Tongue midline without atrophy or fasciculations. Motor: Bulk and tone normal in all extremities. No significant muscle weakness in arms and legs. No drift. Reflexes: Deep tendon reflexes 2+ and symmetric. Plantar response down-going bilaterally. Coordination: [id number] and [id number] testing normal. No dysmetria. Gait and Station: No obvious gait abnormality. No ataxia or instability. Sensory: Intact to light touch, pinprick, and vibration. Romberg is negative. Extrapyramidal: Full facial expressions and blinking. No rigidity. Movements are appropriate with no tremor or abnormality. Speech: Normal; no dysarthria or tremor. Assessment & Plan Assessment & Plan (1) Migraine without aura: Code(s): G43.009 - Migraine without aura, not intractable, without status migrainosus Category: Medical Qualifiers: Status migrainosus presence: with status migrainosus Intractability: intractable Qualified Code(s): G43.011 - Migraine without aura, intractable, with status migrainosus (2) Cervical spondylosis: Code(s): M47.812 - Spondylosis without myelopathy or radiculopathy, cervical region Category: Medical Plan Impression: Severe neck and head pain suggestive of chronic migraine type of headaches but her overall clinical picture was more suggestive of underlying Arnold Chairi type of pathology Rec: a: MRI brain WO cont b: Topiramate 25mg one at bedtime for headache control Orders: Orders MR head/brain wo con Today G43.009 - Migraine without aura, not intractable, without status migrainosus Medications: New topiramate 25 mg orally one at night; 90 tabs 1RF Coding Level of Care Code Tele New Pt Level 5 (49418) Diagnoses Intractable migraine without aura and with status migrainosus G43.011 Status migrainosus presence: with status migrainosus Intractability: intractable Cervical spondylosis M47.812
== END 2024-09-20 14:47 | disposition home or self-care (01) ==
LOC: HO.HSM 14:07
PROVIDERS: PCP Nurse Practitioner Family; Referring Provider Nurse Practitioner Family; Visit Provider Psychiatry & Neurology Neurology
DX: G43.011 Migraine without aura, intractable, with status migrainosus (principal); M47.812 Spondylosis without myelopathy or radiculopathy, cervical region
CPT/HCPCS: 99214

== ENCOUNTER → 2024-09-20 14:07 | Outpatient (BNVA) | payer MEDICAID, SELFPAY | PROVIDERS: PCP Nurse Practitioner Family; Referring Provider Nurse Practitioner Family; Visit Provider Psychiatry & Neurology Neurology | DX: G43.011 Migraine without aura, intractable, with status migrainosus (principal); M47.812 Spondylosis without myelopathy or radiculopathy, cervical region | CPT/HCPCS: 99212 ==

== ENCOUNTER 2024-10-10 13:55 | Outpatient (REF) | payer MEDICAID, SELFPAY ==
--- NOTE | ~2024-10-10 | MR_ITS ---
EXAMINATION: MR BRAIN WITHOUT CONTRAST CLINICAL INFORMATION: Migraine without aura, not intractable. Rule out Arnold-Chiari malformation. COMPARISON: MRI brain 12/04/2018. TECHNIQUE: MRI of the brain was obtained using routine sequences without contrast. Examination was performed on a 1.5 An Siemens high-field unit. FINDINGS: There is no diffusion restriction. There is no intracranial hemorrhage, acute infarction, mass effect, or edema. Ventricles, sulci, and cisterns are normal in size and configuration for patient age. No shift of midline. No abnormal hemosiderin deposition is identified. There are no significant white matter signal abnormalities. Midline structures appear normally formed. The pituitary gland appears normal. Posterior fossa structures appear normal. Cerebellar tonsils are appropriately located. Major flow voids are preserved within the skull base. The globes and orbital contents demonstrate no abnormalities. Paranasal sinuses are clear bilaterally. Nasal septum is midline without spur. The mastoids and tympanic cavities are normally aerated. Extracranial soft tissues demonstrate no abnormalities. No suspicious bone marrow changes are evident. Atlantoaxial joint is normal. MR/MR head/brain wo con IMPRESSION: 1. Normal MRI of the brain. Electronically signed by: Abad Pate MD 10/10/2024 03:07 PM EDT
--- OUTSIDE RECORDS SUMMARY | 2024-10-10 14:54 | XMS_ITS | Encounter Summary ---
Author Organization [facility] Address [address] [place] [address] Phone Care Team Providers Care Rail Splitter Name Role Phone Farrukh Wooten MD Primary Care Provider Encounter Details Date Type Department Care Team (Late st Contact Info) Description 01/21/2020 Ancillary Orders Pediatric Rheumatology - [address], [address] [place] [address] Melina Cedeno MD, PhD [address] [place] [id number] [email or web address] Pain in joints Social History Tobacco Use Types Packs/Day Years Used Date Smoking Tobacco: Never Assessed Comments Unknown Sex and Gender Information Value Date Recorded Sex Assigned at Not on file Legal Sex Female 9:58 AM EDT Gender Identity Not on file Sexual Orientation Not on file documented as of this encounter Plan of Treatment Not on file documented as of this encounter Visit Diagnoses Diagnosis Pain in joints Pain in joint, multiple sites documented in this encounter Care Teams Rail Splitter Relationship Specialty Start Date End Date Farrukh Wooten MD [address] [place] [address] PCP - General Pediatrics 09/01/17 documented as of this encounter Additional Source Comments The information contained in this document represents components of the legal health record. It is not the complete legal health record.[facility]
--- OUTSIDE RECORDS SUMMARY | 2024-10-10 14:54 | XMS_ITS | Clinical Summary ---
Author Organization [facility] Address [address] [place] [address] Phone Support Name Relationship Address Phone Mich Larry Personal Relationship [address] [place] [address] Care Team Providers Care City Engineer Name Role Phone Farrukh Wooten MD [...] 08/26/2015 Medical Devices Not on file Insurance [address] [address] [facility] C3 ACO C3 ACO C3 ACO C3 ACO C3 ACO C3 ACO C3 ACO C3 ACO C3 ACO C3 ACO C3 ACO C3 ACO C3 ACO Care Teams City Engineer Relationship Specialty Start Date End Date Farrukh Wooten MD [address] [place] [phone] PCP - General Pediatrics 09/01/17 Additional Source Comments The information contained in this document represents components of the legal health record. It is not the complete legal health record.[facility]
== END 2024-10-10 13:56 | disposition home or self-care (01) ==
LOC: HO.MRI 13:55
PROVIDERS: PCP Nurse Practitioner Family; Visit Provider Psychiatry & Neurology Neurology
DX: G43.009 Migraine without aura, not intractable, without status migrainosus (principal)
CPT/HCPCS: 70551

== ENCOUNTER → 2024-10-10 14:01 | Outpatient (BNV) | payer MEDICAID, SELFPAY | PROVIDERS: PCP Nurse Practitioner Family; Visit Provider Radiology Diagnostic Radiology | DX: G43.009 Migraine without aura, not intractable, without status migrainosus (principal) | CPT/HCPCS: 70551 ==

== ENCOUNTER 2024-11-02 13:35 | Outpatient (AMB) | payer MEDICAID, SELFPAY ==
--- OUTSIDE RECORDS SUMMARY | 2024-11-02 13:47 | XMS_ITS | Encounter Summary ---
Author Organization [employer] Address [address] [facility] [address] [place] [address] Care Team Providers Care Print Color Operator Name Role Phone Liane Silva NP Primary Care Provider [phone] Reason for Visit * Reason Comments Med Refill Encounter Details Date Type Department Care Team (Late st Contact Info) Description 02/23/[address] [facility] [address] [place] [address] Liane Silva NP [address] [place] [address] Neck pain Social History Tobacco Use Types [...] Description 11/05/2024 8:00 AM EDT Office Visit [facility] ADULT DENTAL [address] [place] [address] Kacey Acosta documented as of this encounter Visit Diagnoses Diagnosis Neck pain Cervicalgia documented in this encounter Additional Health Concerns Assessment Noted Time PHQ-9 Depression Total Score: 0 01/27/20 3:01 PM EST documented as of this encounter Care Teams Print Color Operator Relationship Specialty Start Date End Date Liane Silva NP [address] [place] [address] PCP - General Family Medicine 12/08/22 documented as of this encounter
--- OUTSIDE RECORDS SUMMARY | 2024-11-02 13:47 | XMS_ITS | Clinical Summary ---
Author Organization [employer] Address [address] [facility] 7t [place] [address] Support Name Relationship Address Phone [place] Larry Personal Relationship [address] [facility] [address] [place] [address] Care Team Providers Care White Lead Grinder Name Role Phone Liane Silva NP Primary Care Provider [phone] Allergies No known active allergies Medications aspirin-acetamin [...] shoulder pain -seen by rheumatology in 2021. Offal Baler not certain about arthritis dx. No swollen [...] Encounters Date Type Department Care Team Description 10/10/2024 Orders Only [facility] External Provider, [facility] from Last 3 Months Immunizations Immunization Administration [...] housing situation today? I have maryankristen cifuentes 06/22/[address] [...] the past 12 months, has t he [id number], gas, oil or water company threatened to [...] Description 11/05/2024 8:00 AM EDT Office Visit [facility]ULT [facility] [address] [place] [address] Kacey Acosta Health Maintenance Due Date Last [...] 08/04/2023 11/09/2005, 09/13/2005, 04/12/2005, Additional history exists Depression Screening 01/27/2024 01/26/2023, 01/27/20 23 Dental Oral Exam 07/05/2024 01/05/2024, , 12/14/2021, Additional history exists COVID-19 Vaccine ( season) 2024 Influenza Vaccine (#1) 2024 3, 05/04/2022, 04/29/2021, Additional history exists Dental X-Ray: [...] 2004 Hepatitis A Vaccines Completed 05/21/2008, 09/14/19 06 IPV Vaccines Completed 09/02/2008, 03/18, 2004, Additional history exists HPV Vaccines Completed 02/17/2016, 08/26/2015 Meningococcal Vaccine Completed 04/29/2021, 016 RSV under 20 months Aged Out No longe r eligible based on patient's age to complete this topic Rotavirus Vaccines Aged Out No longer eligible based on patient's age to complete this topic Procedures Procedure Name Priority Date/Time Associated Diagnosis Comments MR BRAIN WO CONTRAST Routine 10/10/2024 2:04 PM EDT INTRAORAL - COMPLETE SERIES OF [...] Recently Relevant to Health Maintenance Results * MR Brain w/o Contrast (10/10/2024 2:04 PM EDT) Anatomical Region Laterality Modality Brain Magnetic Resonan ce 10/10/2024 2:04 PM EDT Narrative 10/10/2024 3:10 PM EDT [place] [address] Magnetic Resonance Report Signed Patient: Joshua Madrid MR#: [id number] : 2005 Acct:[id number] Age/Sex: 19 / F ADM Date: 10/10/24 Loc: HO.MRI Attending Dr: Luna Waldron MD Ordering Physician: Luna Waldron MD Date of Service: 10/10/24 Procedure(s): MR head/brain wo con Accession Number(s): [id number] cc: Alanis Fuentes SOCIOLOGY INSTRUCTOR; Luna Waldron MD EXAMINATION: MR BRAIN WITHOUT CONTRAST CLINICAL INFORMATION: Migraine without aura, not intractable. Rule out Arnold-Chiari malformation. COMPARISON: MRI brain 12/04/2018. TECHNIQUE: MRI of the brain was obtained using routine sequences without contrast. Examination was performed on a 1.5 An Siemens high-field unit. FINDINGS: There is no diffusion restriction. There is no intracranial hemorrhage, acute infarction, mass effect, or edema. Ventricles, sulci, and cisterns are normal in size and configuration for patient age. No shift of midline. No abnormal hemosiderin deposition is identified. There are no significant white matter signal abnormalities. Midline structures appear normally formed. The pituitary gland appears normal. Posterior fossa structures appear normal. Cerebellar tonsils are appropriately located. Major flow voids are preserved within the skull base. The globes and orbital contents demonstrate no abnormalities. Paranasal sinuses are clear bilaterally. Nasal septum is midline without spur. The mastoids and tympanic cavities are normally aerated. Extracranial soft tissues demonstrate no abnormalities. No suspicious bone marrow changes are evident. Atlantoaxial joint is normal. MR/MR head/brain wo con IMPRESSION: 1. Normal MRI of the brain. Electronically signed by: Abad Pate MD 10/10/2024 03:07 PM EDT RP Dictated By: Abad Pate MD Signed By: <Electronically signed by Abad Pate MD in [place]> 10/10/24 1507 DD/ 1404 TD/TT: 10/10/24 1421 Supervisor Cartography: Procedure Note Donotuseinterpreter, Image - 10/10/2024 [place] [address] Magnetic Resonance Report Signed Patient: Joshua MadridMR#: [id number] : 2005Acct:[id number] Age/Sex: Date: 10/10/24 Loc: HO.MRI Attending Dr: Luna Waldron MD Ordering Physician: Luna Waldron MD Date of Service: 10/10/24 Procedure(s): MR head/brain wo con Accession Number(s): [id number] cc: Alanis Fuentes SOCIOLOGY INSTRUCTOR; Luna Waldron MD EXAMINATION: MR BRAIN WITHOUT CONTRAST CLINICAL INFORMATION: Migraine without aura, not intractable. Rule out Arnold-Chiari malformation. COMPARISON: MRI brain 12/04/2018. TECHNIQUE: MRI of the brain was obtained using routine sequences without contrast. Examination was performed on a 1.5 An Siemens high-field unit. FINDINGS: There is no diffusion restriction. There is no intracranial hemorrhage, acute infarction, mass effect, or edema. Ventricles, sulci, and cisterns are normal in size and configuration for patient age. No shift of midline. No abnormal hemosiderin deposition is identified. There are no significant white matter signal abnormalities. Midline structures appear normally formed. The pituitary gland appears normal. Posterior fossa structures appear normal. Cerebellar tonsils are appropriately located. Major flow voids are preserved within the skull base. The globes and orbital contents demonstrate no abnormalities. Paranasal sinuses are clear bilaterally. Nasal septum is midline without spur. The mastoids and tympanic cavities are normally aerated. Extracranial soft tissues demonstrate no abnormalities. No suspicious bone marrow changes are evident. Atlantoaxial joint is normal. MR/MR head/brain wo con IMPRESSION: 1. Normal MRI of the brain. Electronically signed by: Abad Pate MD 10/10/2024 03:07 PM EDT Dictated By: Abad Pate MD Signed By: <Electronically signed by Abad Pate MD in [place]> 10/10/24 1507 DD/ 1404 TD/TT: 10/10/24 1421 Supervisor Cartography: [facility] External Provider IMG MRI PROCEDURES Final Result * (ABNORMAL) Lipid Panel, Standard (05/04/2022 3:13 PM EDT) Cholesterol, Total 183(H) <170 mg/dL [facility] HDL Cholesterol 53 >45 mg/dL [facility] [place] [email or web address] Triglycerides 92(H) <90 mg/dL [address] [place] [email or web address] LDL Cholesterol 110(H) <110 mg/dL (calc) [address] [place] [email or web address] Comment: LDL-C is now calculated using the Carlos-Evangelista calculation, which is a validated novel method providing better accuracy than the Friedewald equation in the estimation of LDL-C. Carlos SS et al. ALOK. 2013;310(19): 4961-9475 (http://education.[employer]/faq/ANI274) Chol/HDLC Ratio 3.5 <5.0 (calc) [facility] Non-HDL Cholesterol 130(H) <120 mg/dL (calc) [facility] Comment: For patients with diabetes plus 1 major ASCVD risk factor, treating to a non-HDL-C goal of <100 mg/dL (LDL-C of <70 mg/dL) is considered a therapeutic option. Blood Venous blood specimen / Unknown 05/04/2022 3:13 PM EDT 05/04/2022 3:13 PM EDT Narrative [facility] - 05/05/2022 5:13 AM EDT FASTING:YES FASTING: YES Farrukh Wooten MD LAB BLOOD ORDERABLES Final Resu lt [facility] [address], [facility] [place] [address] [facility] [address] [place] [address] from Last 3 Months or Most Recently Relevant to Health Maintenance Insurance D[facility]AL-[facility] MEDICAID STAND CHILD DENTAL-[facility] MEDICAID STAND CHILD Care Teams White Lead Grinder Relationship Specialty Start Date End Date Liane Silva NP [address] [place] [address] PCP - General Family Medicine 12/08/22
--- OUTSIDE RECORDS SUMMARY | 2024-11-02 13:47 | XMS_ITS | Encounter Summary ---
Author Organization [employer] Address [address] [facility] [facility] [address] 7[address] [place] [address] Care Team Providers Care Legal File Clerk Name Role Phone Liane Silva NP Primary Care Provider [phone] Encounter Details Date Type Department Care Team ([facility] st Contact Info) Description 02/10/2023 Abstract [facility] ADULT DENTAL [address] [place] [address] Brian Jones, DMD [address] [place] [address] Social History Tobacco Use Types Packs/Day Years [...] 11/05/2024 8:00 AM EDT Office Visit [facility] [address] [place] [address] Kacey Acosta documented as of this encounter Visit Diagnoses Not on filedocumented in this encounter Additional Health Concerns Assessment Noted Time PHQ-9 Depression Total Score: 0 01/27/20 3:01 PM EST documented as of this encounter Care Teams Legal File Clerk Relationship Specialty Start Date End Date Liane Silva NP [address] [place] [address] PCP - General Family Medicine 12/08/22 documented as of this encounter
--- OUTSIDE RECORDS SUMMARY | 2024-11-02 13:47 | XMS_ITS | Encounter Summary ---
Author Organization [facility] Address [address] [place] [address] Phone Care Team Providers Care Dust Collector Operator Name Role Phone Farrukh Wooten MD Primary Care Provider Encounter Details Date Type Department Care Team (Late st Contact Info) Description 01/21/2020 Ancillary Orders Pediatric Rheumatology - [address] Floor, [address] [place] [address] Melina Cedeno MD, PhD [address] [place] [id number] [email or web address] Pain in joints Social History Tobacco Use [...] sites documented in this encounter Care Teams Dust Collector Operator Relationship Specialty Start Date End Date Farrukh Wooten MD [address] [place] [address] PCP - General Pediatrics 09/01/17 documented as of this encounter Additional Source Comments The information contained in this document represents components of the legal health record. It is not the complete legal health record.[facility]
--- OUTSIDE RECORDS SUMMARY | 2024-11-02 13:47 | XMS_ITS | Encounter Summary ---
Author Organization [employer] Address [address] [facility] 7t [place] [address] Care Team Providers Care Retail Zone Specialist Name Role Phone Liane Silva NP Primary Care Provider [phone] Encounter Details Date Type Department Care Team ([facility] st Contact Info) Description 01/26/2023 Abstract [facility] MEDICINE [address] [place] [address] Liane Silva NP [address] [place] [address] Social History Tobacco Use Types Packs/Day Years [...] Description 11/05/2024 8:00 AM EDT Office Visit [facility] ADULT DENTAL [address] [place] [address] Kacey Acosta documented as of this encounter Visit Diagnoses Not on filedocumented in this encounter Additional Health Concerns Assessment Noted Time PHQ-9 Depression Total Score: 0 01/27/20 3:01 PM EST documented as of this encounter Care Teams Retail Zone Specialist Relationship Specialty Start Date End Date Liane Silva NP [address] [place] [address] PCP - General Family Medicine 12/08/22 documented as of this encounter
--- OUTSIDE RECORDS SUMMARY | 2024-11-02 13:47 | XMS_ITS | Clinical Summary ---
Author Organization [facility] Address [address] [place] [address] Care Team Providers Care Water Resource Engineering Specialist Name Role Phone Farrukh Wooten MD Primary Care Provider [phone] Source Comments Please note that some or [...] so, obtain the minor's consent prior to disclosure.[facility] Allergies No known active allergies Medications aspirin-acetami nophen-caffeine (EXCEDRIN MIGRAINE) 250-250-65 mg per tablet Take by mouth Activ e FLOVENT HFA 110 mcg/actuation inhaler INHALE 2 PUFFS BY MOUTH DAILY WITH AEROCHAMBER 2 Active OPTICHAMBER [facility] Spacer DIRECTED 2 Active ibuprofen (MOTRIN) 200 [...] Mass Index 30.4 08/20/2021 3:00 PM EDT Plan of Treatment Health Maintenance Due Date Last Done Comments DTaP/TDAP/TD VACCINES (1 - Tdap) 08/04/2011 ADOLESCENT HIV SCREENING 2017 COVID-19 Vaccine ( - 2023-2 5 season) 2024 INFLUENZA (#1) 2024 NIRSEVIMAB VACCINES UNDER 8 MONTHS Aged Out No longer eligible based on patient's age to complete this topic Insurance [facility] MEDICAID Care Teams Water Resource Engineering Specialist Relationship Specialty Start Date End Date Farrukh Wooten MD [address] [place] [address] PCP - General General Pediatrics 05/14/21
--- OUTSIDE RECORDS SUMMARY | 2024-11-02 13:47 | XMS_ITS | Encounter Summary ---
Author Organization [employer] Address [address] [facility] 7t [place] [address] Care Team Providers Care Senior Strategy Manager Name Role Phone Liane Silva NP Primary Care Provider [phone] Encounter Details Date Type Department Care Team ([facility] st Contact Info) Description 02/24/2023 Abstract [facility] [address] [place] [address] Liane Silva NP [address] [place] [address] Social History Tobacco Use Types Packs/Day Years [...] [facility] [address] [place] [address] Kacey Acosta documented as of this encounter Visit Diagnoses Not on filedocumented in this encounter Additional Health Concerns Assessment Noted Time PHQ-9 Depression Total Score: 0 01/27/20 3:01 PM EST documented as of this encounter Care Teams Senior Strategy Manager Relationship Specialty Start Date End Date Liane Silva NP [address] [place] [address] PCP - General Family Medicine 12/08/22 documented as of this encounter
--- OUTSIDE RECORDS SUMMARY | 2024-11-02 13:47 | XMS_ITS | Encounter Summary ---
Author Organization [employer] Address [address] [facility] 7t [place] [address] Care Team Providers Care Wet Pan Mixer Name Role Phone Liane Silva NP Primary Care Provider [phone] Encounter Details Date Type Department Care Team ([facility] st Contact Info) Description 02/24/2023 Abstract [facility] MED[facility] [address] [place] [address] Liane Silva NP [address] [place] [address] Social History Tobacco Use Types Packs/Day Years [...] Description 11/05/2024 8:00 AM EDT Office Visit [facility] ADULT DENTAL [address] [place] [address] Kacey Acosta documented as of this encounter Visit Diagnoses Not on filedocumented in this encounter Additional Health Concerns Assessment Noted Time PHQ-9 Depression Total Score: 0 01/27/20 3:01 PM EST documented as of this encounter Care Teams Wet Pan Mixer Relationship Specialty Start Date End Date Liane Silva NP [address] [place] [address] PCP - General Family Medicine 12/08/22 documented as of this encounter
--- OUTSIDE RECORDS SUMMARY | 2024-11-02 13:47 | XMS_ITS | Clinical Summary ---
Author Organization [facility] Address [address] [place] [address] Phone Support Name Relationship Address Phone [place] Larry Personal Relationship [address] [place] [address] Care Team Providers Care Boiler Technician Name Role Phone Farrukh Wooten MD Primary [...] 2022 HIV ONE-TIME SCREENING (18-65 YEARS) 2022 INFLUENZA VACCINE (#1) 2024 3, 04/29/2021, 01/21/2020, Additional history exists COVID-19 VACCINE ( - season) 2024 COMBINED DTaP,Tdap,Td (7 - Td or Tdap) [...] 08/26/2015 Medical Devices Not on file Insurance [id number] C3 ACO C3 ACO C3 ACO C3 ACO C3 ACO C3 ACO C3 ACO C3 ACO C3 ACO C3 ACO C3 ACO C3 ACO C3 ACO [facility] C3 ACO Care Teams Boiler Technician Relationship Specialty Start Date End Date Farrukh Wooten MD [address] [place] [address] PCP - General Pediatrics 09/01/17 Additional Source Comments The information contained in this document represents components of the legal health record. It is not the complete legal health record.[facility]
--- OUTSIDE RECORDS SUMMARY | 2024-11-02 13:47 | XMS_ITS | Encounter Summary ---
Author Organization [employer] Address [address] [place] [address] [address] [place] [address] Care Team Providers Care Street Light Servicer Supervisor Name Role Phone Liane Silva AIR QUALITY CHEMIST Primary Care Provider [phone] Reason for Visit * Reason Onset Date Comments Nurse Triage 12/17/2022 Encounter Details Date Type Department Care Team (Late st Contact Info) Description 12/17/2022 Telephone [facility] MEDICINE [address] [place] [address] Liane Silva NP [address] [place] [address] Nurse Triage Social History Tobacco Use Types [...] Called pt. No answer. Left message on [phone] to please call back [facility] nurses at [phone]. RE: Neck pain. Called alternate number [phone]. Mother answered phone. Pt. Suffers from migraines but, on the back of pt. Neck is hurting on the back of her neck. Pt. Has not done any neck stretching exercises and Tylenol and Motrin not helping. * Telephone Encounter - Estefany Farley - 12/17/2022 2:05 PM EDT Tc from [place] returning call and requesting a call back. * Telephone Encounter - Daria Spann RN - 12/17/2022 1:52 PM EDT Call returned to Joshua Madrid for triage. No answer LVM to return call to [facility] triage line [phone]. Mom not on HIPAA. * Telephone Encounter [...] Description 11/05/2024 8:00 AM EDT Office Visit [facility] ADULT DENTAL [address] [place] [address] Kacey Acosta documented as of this encounter Visit Diagnoses Not on filedocumented in this encounter Additional Health Concerns Assessment Noted Time PHQ-9 Depression Total Score: 1 05/07/19 23 1:36 PM EDT documented as of this encounter Care Teams Street Light Servicer Supervisor Relationship Specialty Start Date End Date Liane Silva NP [address] [place] [address] PCP - General Family Medicine 12/08/22 documented as of this encounter
--- NOTE | 2024-11-02 13:57 | A.OFFVIS_ITS ---
Vital Signs 11/02/24 13:58 Height 5 ft Weight 166 lb 3.657 oz BMI 32.5 BP 122/58 L Blood Pressure Location Lt brachial Position Sitting Pulse 70 Pulse Source Pulse Oximeter Intake Visit Reasons: 6m follow up Electronic Engraver Required: No Accompanied by: Mother Allergies No Known Allergies (No Known Allergies*) Allergy (Verified 11/02/24 14:01) Medication List - Last Reconciled 11/02/24 by Luis Angel Grullon NP albuterol sulfate 90 mcg/actuation (Ventolin HFA) 2 puffs inhalation Q6H PRN tpigccx-akscpvegmnhnh-ueewokvp 250-250-65 mg (Excedrin Extra Strength) 2 tabs PO Q6H PRN multivitamin 1 tab PO DAILY HPI Comments Details: This is a 19-year-old female patient coming in for a follow-up visit, accompanied by her mother. Patient has been seen in the office for ongoing chest discomfort and palpitations associated with dizziness. Patient has undergone echo, Holter, and a stress echo. Patient reports ongoing symptoms of chest discomfort, palpitations, and dizziness mostly when the heart rate is high. The chest discomfort patient notes is intermittent and mostly noted when her heart rate is slower in the 60s. Patient notes that all her symptoms could be random in nature and can be occurring both with exertion as well as at rest. Patient is otherwise denying any orthopnea, PND, leg edema, presyncope or syncope. [facility] Medical History Cervicogenic headache Migraine without aura Mild intermittent asthma without complication Scoliosis Polyarticular juvenile idiopathic arthritis Obesity HLD (hyperlipidemia) Migraine Rheumatoid arthritis Family History Father No problems noted. Mother No problems noted. Social History Patient Tobacco Use Status: Never used Tobacco Review of Systems Const Denies daytime sleepiness, Denies difficulty sleeping, Denies snoring, Denies stops breathing during sleep and Denies weakness Card Denies chest pain, Denies rapid heart rate, Denies irregular heart rhythm, Denies claudication, Denies leg edema, Reports lightheadedness, Denies palpitations, Reports dyspnea, Denies dyspnea on exertion, Denies orthopnea, Denies paroxysmal nocturnal dyspnea and Denies slow heart rate Resp Denies cough, Reports dyspnea, Denies dyspnea on exertion and Denies snoring GI Reports no additional complaints, Denies hematochezia, Denies change in stool character and Denies dyspepsia Musc Denies abnormal gait, Denies muscle weakness and Denies numbness Neuro Denies abnormal gait, Denies numbness and Denies weakness Endo Denies palpitations Physical Exam Vital Signs: Last Vital Signs Pulse 70 11/02/24 13:58 BP 122/58 L 11/02/24 13:58 BMI result Body Mass Index 32.5 Const General: cooperative, healthy appearing, comfortable and no acute distress Orientation/consciousness: patient oriented x3 HEENT Head: Yes normal to inspection Neck Neck: Yes normal visual inspection, Yes trachea midline and Yes supple Chest Chest palpation & inspection: normal inspection of the chest Resp Effort & Inspection: normal respiratory effort Auscultation: clear to auscultation bilaterally, no crackles, no rales, no rhonchi and no wheezes Cardio Jugular venous distension: no JVD Palpation: normal PMI Rate: regular rate Rhythm: regular rhythm Heart sounds: S1 normal heart sound present, S2 normal heart sound present, no click, no gallops, no murmurs and no rubs Peripheral pulses: Peripheral pulses 2+ throughout GI Inspection: Yes normal to inspection Palpation (GI): Soft to palpation Auscultation: normal bowel sounds Skin General skin exam: no rashes or lesions noted Neuro General: patient oriented x3 Extrem General: Yes normal to inspection, No no pedal edema and No calf tenderness Psych Appearance: grossly normal Mental Status: mental status grossly normal Speech and movement: Normal speech and movement present Assessment & Plan Assessment & Plan (1) Chest pain: Code(s): R07.9 - Chest pain, unspecified Category: Medical (2) Palpitations: Code(s): R00.2 - Palpitations Category: Medical (3) SVT (supraventricular tachycardia): Code(s): I47.10 - Supraventricular tachycardia, unspecified Category: Medical Plan 05/04/2024-patient underwent 30 day cardiac event monitor that showed baseline normal sinus rhythm with heart rate 81 beats per minute, with multiple episodes of NSVT fastest heart rate at 192. Patient marked her symptoms with sinus tachycardia. 05/04/2024-echo study showed normal LV systolic function with EF between 55-60% without any structural abnormalities. 08/15/2024- patient underwent stress echo which was negative for ischemia. Patient continues to report symptoms of palpitations dizziness and occasional chest discomfort. Given the presence of NSVT and symptomatic tachycardia, patient was previously started on extended release metoprolol which patient did not tolerate. We will start her on a small dose of metoprolol tartrate. In the meanwhile, we will send patient out for a tilt-table test to evaluate for dysautonomia. If this is negative then we will plan on referring patient out to EP for a possible SVT ablation. Patient and her mother were both discussed about this in detail and is in agreement of the plan. Advised heart healthy diet, regular exercise, weight loss, adequate hydration, and med compliance. Plan to follow up after tilt-table. In the interim, patient will call the office with any concerns or change in symptoms. This note was generated using voice recognition software. While every effort has been made to ensure accuracy and proper medical transcription radiology, there may be occasional errors that could affect the content or meaning of the described symptoms. Orders: Orders ECG Tilt Table Test Today R00.2 - Palpitations, R42 - Dizziness and giddiness Medications: New metoprolol tartrate 12.5 mg (1/2 x 25 mg) PO BID 60 tabs 0RF Coding Level of Care Code Est Pt Level 4 (45724) Complex EM visit Add On G2211 Diagnoses Chest pain R07.9 Palpitations R00.2 SVT (supraventricular tachycardia) I47.10 Time Spent (min) 31 Comment Time spent in reviewing the chart, test results, assessment, counseling and documentation.
[2024-11-02 13:58] VITALS: BP 122/58; PULSE 70; BMI 32.5
== END 2024-11-02 14:53 | disposition home or self-care (01) ==
LOC: HO.HCS 13:35
PROVIDERS: PCP Nurse Practitioner
DX: R07.9 Chest pain, unspecified (principal); R00.2 Palpitations; I47.10 Supraventricular tachycardia, unspecified
CPT/HCPCS: 99214

== ENCOUNTER → 2024-11-02 13:35 | Outpatient (BNVA) | payer MEDICAID, SELFPAY | PROVIDERS: PCP Nurse Practitioner | DX: R00.2 Palpitations (principal); I47.10 Supraventricular tachycardia, unspecified; R07.9 Chest pain, unspecified | CPT/HCPCS: 99212 ==

== ENCOUNTER 2024-11-10 19:20 | Emergency (ER) | payer MEDICAID, SELFPAY ==
--- NOTE | ~2024-11-10 | XR_ITS ---
CLINICAL HISTORY: chest pain 2 view chest x-ray Comparison: CR/WI/SR - XR CHEST 2 VIEWS - 09/26/23 19:39 EDT Findings: No consolidation or effusion. Heart size is normal. No acute fracture. IMPRESSION: 1. No acute findings. This document has been electronically signed by: Odalis Alcaraz MD on 11/10/2024 21:18:17
--- NOTE | 2024-11-10 19:21 | ECG_ITS ---
Test Reason : chest pain Blood Pressure : */* mmHG Vent. Rate : 88 BPM Atrial Rate : 88 BPM P-R Int : 148 ms QRS Dur : 78 ms QT Int : 356 ms P-R-T Axes : 36 66 45 degrees QTcB Int : 430 ms Normal sinus rhythm with sinus arrhythmia Normal ECG When compared with ECG of 26-Sep-2023 19:15, No significant change was found Referred By: Patricia Odell Electronically Signed By: Kenny Farah
[2024-11-10 19:27] VITALS: BP 113/60; PULSE 81; RESP 18; TEMP 36.7; O2SAT 99; BMI 32.4
--- NOTE | 2024-11-10 19:27 | ED_ITS ---
HPI - General Adult General Chief complaint: Chest Pain Stated complaint: chest pain Time Seen by Provider: 11/10/24 20:25 History of Present Illness ED Provider: Arpita LEBLANC narrative: The patient is a 19-year-old female who reports that she was diagnosed with a rheumatoid arthritis at age 12. She may have been referred to a coal feeder operator as a child but she has not seen a coal feeder operator recently and she does not have a coal feeder operator. The patient has been seen at the cardiology office for evaluation of complaints of palpitations and chest pain. She has a Holter monitor and a cardiac event monitor in April/May of this year which showed multiple episodes of SVT which were brief and self resolving. She subsequently followed up in the cardiology office and was placed on metoprolol. She apparently did not tolerate the metoprolol very well and her dose was decreased. This was fairly recent. She says that she has not tolerated the lower dose of metoprolol either. The patient says that she has symptoms of chest pain just about every day. She feels that her heart rate changes rapidly and often. Strangely she feels that she has a lot of chest pain when her heart rate slows down. Apparently she called an ambulance 4 days ago because of chest pain but ultimately did not get transferred to hospital because her vital signs were stable and she did not want to come to the hospital after paramedics had arrived. Today she had multiple episodes of a sense of palpitations and also multiple episodes of her heart rate feeling slow and being associated with chest discomfort and so she came to the emergency room. She says that these symptoms generally do not bother her during the nighttime and do not interfere with her sleep. No pain or swelling in her legs. Related Data Home Medications ?Medication ?Instructions ?Recorded ?Confirmed albuterol sulfate 90 mcg/actuation 2 puff inhalation Q 6H PRN 09/14/24 11/02/24 aerosol inhaler (Ventolin HFA) multivitamin 1 tab PO DAILY 09/14/2410/15 ftxzrco-aroxyoslpjvvt-esgrltnq 250 2 tab PO Q6H PRN 11/02/24 mg-250 mg-65 mg tablet (Excedrin Extra Strength) Previous Rx's ?Medication ?Instructions ?Recorded metoprolol tartrate 25 mg tablet 12.5 mg (1/2 x 25 mg) PO BID #60 11/02/24 tabs Allergies Allergy/AdvReac Type Severity Reaction Status Date / Time No Known Allergies (No Known Allergy Verified 11/10/24 19:29 Allergies*) Review of Systems 2 Review of Systems: Yes all other systems are reviewed and are negative [facility] Past Medical History Medical History Cervicogenic headache Migraine without aura Mild intermittent asthma without complication Scoliosis Polyarticular juvenile idiopathic arthritis Obesity HLD (hyperlipidemia) Migraine Rheumatoid arthritis Family History Family History Father No problems noted. Mother No problems noted. Social History Social History Patient Tobacco Use Status: Never used Tobacco Smoked in Last 30 Days: No Use of substances other than those prescribed or required for medical reasons: No Advance Directives: No Advance Directives Information Provided: No Physical Exam ED Vital Signs: Vital Signs - 24 hr 11/10/24 19:27 11/10/24 19:51 Temperature 98.1 F 97.9 F Pulse Rate 81 85 Respiratory Rate 18 11 L Blood Pressure 113/60 104/73 Pulse Oximetry 99 99 Oxygen Delivery Method Room Air Room Air BMI result Body Mass Index 32.4 Const Other: The patient is a well-groomed 19-year-old who was awake and alert, pleasant cooperative. She did not appear in any distress. Orientation/consciousness: patient oriented x3 HENMT Other: The face is symmetrical. ?Mucous membranes moist. Eyes Other: Pupils are round equal, conjunctivae are clear, extraocular movements intact Neck Neck: Yes normal visual inspection, Yes full ROM and Yes no JVD Resp Effort & Inspection: normal respiratory effort Auscultation: clear to auscultation bilaterally Cardio Rate: regular rate Rhythm: regular rhythm Heart sounds: S1 normal heart sound present and S2 normal heart sound present GI Other: Abdomen is soft and nontender Skin Other: The skin is dry and unremarkable Neuro General: patient oriented x3, gait normal, tone normal, moves all extremities, no focal motor deficits and CN's II-XI intact bilaterally Extrem Other: There is no calf swelling or tenderness. No asymmetry. No peripheral edema. Course Course Course Narrative: This is a rapid medical exam performed by C. Cass, DATA COMMUNICATIONS ENGINEER: Additional HPI, ROS, PE not included below will be deferred to primary provider. Patient is a 19y/o F pmhx SVT, migraines, asthma, rheumatoid arthritis presenting with complaint of chest pain for the past 4 days. Already seeing cardiolgy for her SVT. States pain is midsternal, 5/10. States her chest pain is worst when her HR is at a normal level, when she is tachycardic she doesn't have pain. Awaiting tilt table test. Plan: EKG, labs, CXR Medical Decision Making Medical Decision Making [facility] Narrative: The patient is a 19-year-old female who presents with a complaint of chest pain. She has had a fairly extensive cardiac evaluation for chest symptoms over the last several months. This has included a Holter monitor and an event monitor. With the event monitor she was found to have brief episodes of nonsustained SVT which were not associated with the patient marking any events. She has also had a transthoracic echocardiogram which was essentially normal. She has also had a cardiac stress test that was unremarkable. At this point, from the cardiology point of view, face seemed to have a plan to get a tilt-table test to evaluate for possible dysautonomia. If the tilt-table test is negative there may be a plan for consideration of an ablation procedure to address her SVT. She seems to report a poor history of tolerating efforts at symptomatic treatment with metoprolol. She describes frequent ongoing episodes of chest discomfort which, seemingly paradoxically, she correlates with episodes when her heart rate slows down. Her vital signs in the emergency room are unremarkable. She does not look ill. She has a an undetectable troponin. She has a an unchanged EKG. We also checked a D-dimer that is normal. We checked a chest x-ray that was normal. The patient has chest pain syndrome is very unusual. I do not think this represents an acute coronary syndrome or a pulmonary embolism or other acutely dangerous process. It is very subacute and has been going on for months. In addition to following up with Cardiology I think she should also try to see a coal feeder operator. The patient will be discharged to follow up with her PCP and her hop picker. Lab Data 11/10/24 19:55 11/10/24 19:55 Labs: Lab Results 11/10/24 Range/Units 19:55 WBC 7.8 (4.8-10.8) X10*3/uL RBC 3.69 L (4.20-5.50) X10*6/uL Hgb 11.0 L (12.0-16.0) g/dl Hct 31.2 L (37.0-47.0) % MCV 84.6 (80.0-98.0) fL MCH 29.8 (27.0-33.0) pg MCHC 35.3 H (31.0-35.0) g/dl RDW 11.9 (11.0-16.0) % Plt Count 286 (160-400) X10*3/uL MPV 11.0 (9.4-12.3) fL Immature Gran % (Auto) 0.3 (0.0-0.4) % Neut % (Auto) 60.7 (45-73) % Lymph % (Auto) 28.2 (20-40) % [place] % (Auto) 7.0 (2-11) % Eos % (Auto) 3.3 (0-4) % Baso % (Auto) 0.5 (0-2) % Lymph # (Auto) 2.2 (1.2-4.9) X10*3/uL [place] # (Auto) 0.6 (0.1-1.2) X10*3/uL Eos # (Auto) 0.3 (0.0-0.4) X10*3/uL Baso # (Auto) 0.0 (0.0-0.2) X10*3/uL Abs Immat Gran (auto) 0.02 (0.00-0.03) X10*3/uL Absolute Neuts (auto) 4.8 (2.0-8.3) x10*3/uL Absolute Nucleated RBC 0.000 (0.0-0.012) X10*3/uL Nucleated RBC % (auto) 0.0 (0.0-0.2) /100WBC PT 10.7 L (10.9-12.4) SEC INR 0.9 (0.9-1.1) D-Dimer High Sensitivty < 150 NG/ML Sodium 142 (135-145) mmol/L Potassium 4.3 (3.3-5.1) mmol/L Chloride 110 H (96-108) mmol/L Carbon Dioxide 25 (22-29) mmol/L Anion Gap 11 L (12-20) BUN 15 (9-16) mg/dL Creatinine 0.63 (0.5-1.4) mg/dL Estim Creat Clear Calc 129.1 Estimated GFR > 60 Random Glucose 96 (60-115) mg/dL Calcium 9.4 (8.4-10.2) mg/dL Magnesium 1.9 (1.6-2.6) mg/dL Total Bilirubin 0.3 (0.0-1.0) mg/dL AST 23 (5-31) U/L ALT 16 (0-31) U/L Alkaline Phosphatase 71 (39-117) U/L Troponin I High Sens < 2.7 (<3.5-17.0) ng/L Total Protein 7.2 (6.5-8.0) g/dL Albumin 4.5 (3.5-5.0) g/dL TSH 1.67 (0.32-4.0) uIU/mL Beta HCG, Quant < 2 mIU/mL Independent Interpretation I performed an independent interpretation of an: EKG Interpretation: EKG at 19:24 shows normal sinus rhythm at 88 beats per minute. No acute ischemic changes. No change from previous. Discharge Plan Discharge Clinical Impression: Chest pain Patient Disposition: Home, Self-Care Additional Instructions: Your testing in the emergency room today is very reassuring. I do not think your chest pain is indicating any acutely dangerous process. Unfortunately I do not have a good insight into your chest pain as it seems very atypical. Please plan on following up with your regular doctor and with Cardiology regarding your ongoing symptoms. I would also recommend trying to see a coal feeder operator. You has been provided with the contact information for the rheumatology service here at [facility]. You may also contact your primary care doctor about other places to see a coal feeder operator. Return to the emergency room if significantly worse. Prescriptions: No Action zvtuijn-kmzpstnnslvth-lcctanfp [Excedrin Extra Strength] 250-250-65 mg tablet 2 tab PO Q6H PRN metoprolol tartrate 25 mg tablet 12.5 mg PO BID Qty: 60 0RF multivitamin Tablet 1 tab PO DAILY albuterol sulfate [Ventolin HFA] 90 mcg/actuation HFA aerosol inhaler 2 puff inhalation Q6H PRN Referrals: [facility] Cardiovascular Specialists [Provider Group] [facility] [Provider Group] [facility] Rheumatology Service [Provider Group, Rheumatology] Interventions: ED Discharge Assessment Last Done: 11/10/24 21:33 Print Language: Belizean
[2024-11-10 19:51] VITALS: BP 104/73; PULSE 85; RESP 11; TEMP 36.6; O2SAT 99
--- OUTSIDE RECORDS SUMMARY | 2024-11-10 19:53 | XMS_ITS | Encounter Summary ---
Author Organization [employer] Address [address] 7[address] [place] [address] Care Team Providers Care Wallpaper Consultant Name Role Phone Liane Silva NP Primary Care Provider [phone] Encounter Details Date Type Department Care Team ([facility] st Contact Info) Description 02/10/2023 Abstract [facility] ADULT DENTAL [address] [place] [address] Brian Jones, DMD [address] [place] [address] Social History Tobacco Use Types Packs/Day Years [...] documented as of this encounter Care Teams Wallpaper Consultant Relationship Specialty Start Date End Date Liane Silva NP [address] [place] [address] PCP - General Family Medicine 12/08/22 documented as of this encounter
--- OUTSIDE RECORDS SUMMARY | 2024-11-10 19:53 | XMS_ITS | Clinical Summary ---
Author Organization [facility] Address [address] [place] [address] Phone Support Name Relationship Address Phone [place] Larry Personal Relationship [address] [place] [address] Care Team Providers Care Skidder Operator Name Role Phone Farrukh Wooten MD [...] Medical Devices Not on file Insurance [id number] C3 ACO C3 ACO C3 ACO C3 ACO C3 ACO C3 ACO C3 ACO C3 ACO C3 ACO C3 ACO C3 ACO C3 ACO C3 ACO [facility] C3 ACO Care Teams Skidder Operator Relationship Specialty Start Date End Date Farrukh Wooten MD [address] [place] [address] PCP - General Pediatrics 09/01/17 Additional Source Comments The information contained in this document represents components of the legal health record. It is not the complete legal health record.[facility]
--- OUTSIDE RECORDS SUMMARY | 2024-11-10 19:53 | XMS_ITS | Encounter Summary ---
Author Organization [employer] Address [address] [place] [address] [address] [place] [address] Care Team Providers Care Head Paper Tester Name Role Phone Liane Silva TON CONTAINER FILLER Primary Care Provider Reason for Visit * Reason Onset Date Comments Nurse Triage 12/17/2022 Encounter Details Date Type Department Care Team (Late st Contact Info) Description 12/17/2022 Telephone [facility] MEDICINE [address] [place] [address] Liane Silva NP [address] [place] [address] Nurse Triage Social History Tobacco Use Types [...] Called pt. No answer. Left message on [phone] to please call back [facility] nurses at [phone]. RE: Neck pain. Called alternate number [phone]. Mother answered phone. Pt. Suffers from migraines but, on the back of pt. Neck is hurting on the back of her neck. Pt. Has not done any neck stretching exercises and Tylenol and Motrin not helping. * Telephone Encounter - Estefany Farley - 12/17/2022 2:05 PM EDT Tc from [facility] returning call and requesting a call back. * Telephone Encounter - Daria Spann RN - 12/17/2022 1:52 PM EDT Call returned to Joshua Madrid for triage. No answer LVM to return call to [facility] triage line [phone]. Mom not on HIPAA. * Telephone Encounter [...] documented as of this encounter Care Teams Head Paper Tester Relationship Specialty Start Date End Date Liane Silva NP [address] [place] [address] PCP - General Family Medicine 12/08/22 documented as of this encounter
--- OUTSIDE RECORDS SUMMARY | 2024-11-10 19:53 | XMS_ITS | Encounter Summary ---
Author Organization [employer] Address [address] [facility] 7t [place] [address] Care Team Providers Care Security Site Supervisor Name Role Phone Liane Silva NP Primary Care Provider [phone] Reason for Visit * Reason Comments Med Refill Encounter Details Date Type Department Care Team (Late st Contact Info) Description 02/23/2023 Refill [facility] MEDICINE [address] [place] [address] Liane Silva NP [address] [place] [address] Neck pain Social History Tobacco Use Types [...] documented as of this encounter Care Teams Security Site Supervisor Relationship Specialty Start Date End Date Liane Silva NP [address] [place] [address] PCP - General Family Medicine 12/08/22 documented as of this encounter
--- OUTSIDE RECORDS SUMMARY | 2024-11-10 19:53 | XMS_ITS | Clinical Summary ---
Author Organization [facility] Address [address] [place] [address] Care Team Providers Care Nurse Practitioner Name Role Phone Farrukh Wooten MD Primary Care Provider [phone] Source Comments Please note that some or [...] so, obtain the minor's consent prior to disclosure.[facility] Allerg[facility] No known active allergies Medications aspirin-acetami nophen-caffeine (EXCEDRIN MIGRAINE) 250-250-65 mg per tablet Take by mouth Activ e FLOVENT HFA 110 mcg/actuation inhaler INHALE 2 PUFFS BY MOUTH DAILY WITH AEROCHAMBER 2 Active OPTICHAMBER [facility] Spacer DIRECTED 2 Active ibuprofen (MOTRIN) 200 [...] patient's age to complete this topic Insurance [facility] [place] [id number] Care Teams Nurse Practitioner Relationship Specialty Start Date End Date Farrukh Wooten MD PCP - General General Pediatrics 05/14/21
--- OUTSIDE RECORDS SUMMARY | 2024-11-10 19:53 | XMS_ITS | Encounter Summary ---
Author Organization [employer] Address [address] [facility] 7t [place] [address] Care Team Providers Care Security Tech Name Role Phone Liane Silva NP Primary Care Provider [phone] Encounter Details Date Type Department Care Team ([facility] st Contact Info) Description 01/26/[address] [facility] MEDICINE [address] [place] [address] Liane Silva NP [address] [place] [address] Social History Tobacco Use Types Packs/Day Years [...] as of this encounter Care Teams Security Tech Relationship Specialty Start Date End Date Liane Silva NP [address] [place] [address] PCP - General Family Medicine 12/08/22 documented as of this encounter
--- OUTSIDE RECORDS SUMMARY | 2024-11-10 19:53 | XMS_ITS | Encounter Summary ---
Author Organization [facility] Address [address] [place] [address] Phone Care Team Providers Care Technology Analyst Name Role Phone Farrukh Wooten MD Primary Care Provider Encounter Details Date Type Department Care Team (Late st Contact Info) Description 01/21/2020 Ancillary Orders Pediatric Rheumatology - [address], [address] [place] [address] Melina Cedeno MD, PhD [address] [place] [id number] [email or web address] Pain in joints Social History Tobacco Use [...] sites documented in this encounter Care Teams Technology Analyst Relationship Specialty Start Date End Date Farrukh Wooten MD [address] [place] [address] PCP - General Pediatrics 09/01/17 documented as of this encounter Additional Source Comments The information contained in this document represents components of the legal health record. It is not the complete legal health record.[facility]
--- OUTSIDE RECORDS SUMMARY | 2024-11-10 19:53 | XMS_ITS | Encounter Summary ---
Author Organization [employer] Address [address] [facility] 7t [place] [address] Care Team Providers Care Ultrasound Specialist Name Role Phone Liane Silva NP Primary Care Provider [phone] Encounter Details Date Type Department Care Team ([facility] st Contact Info) Description 02/24/2023 Abstract [facility] MEDICINE [address] [place] [address] Liane Silva NP [address] [place] [address] Social History Tobacco Use Types Packs/Day Years [...] documented as of this encounter Care Teams Ultrasound Specialist Relationship Specialty Start Date End Date Liane Silva NP [address] [place] [address] PCP - General Family Medicine 12/08/22 documented as of this encounter
--- OUTSIDE RECORDS SUMMARY | 2024-11-10 19:53 | XMS_ITS | Clinical Summary ---
Author Organization [employer] Address [address] [facility] 7t [place] [address] Support Name Relationship Address Phone Mich Larry Personal Relationship [address] [facility] [address] [place] [address] Care Team Providers Care Disability Program Navigator Name Role Phone Liane Silva NP Primary Care Provider [phone] Allergies No known active allergies Medications aspirin-acetamin [...] shoulder pain -seen by rheumatology in 2021. 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 No swollen [...] Department Care Team Description 10/10/2024 Orders Only [facility] External Provider, [facility] from Last 3 Months Immunizations Immunization [...] the past 12 months, has t he [employer], gas, oil or water company threatened to [...] 06/22/2024 3:38 PM EDT Plan of Treatment Health Maintenance [...] history exists Depression Screening 01/27/2024 01/26/2023, 01/27/20 Dental Oral Exam 07/05/2024 01/05/2024, , 12/14/2021, Additional history exists COVID-19 Vaccine ( - season) 2024 Influenza Vaccine (#1) 2024 , 05/04/2022, 04/29/2021, [...] PM EDT Narrative 10/10/2024 3:10 PM EDT [address] [address] Magnetic Resonance Report Signed Patient: Joshua Madrid MR#: [id number] : 2005 Acct:[id number] Age/Sex: 19 / F ADM Date: 10/10/24 Loc: HO.MRI Attending Dr: Luna Waldron MD Ordering Physician: Luna Waldron MD Date of Service: 10/10/24 Procedure(s): MR head/brain wo con Accession Number(s): [id number] cc: Alanis Fuentes NP; Luna Waldron MD EXAMINATION: MR BRAIN WITHOUT [...] 10/10/24 1507 DD/ 1404 TD/TT: 10/10/24 1421 Line Welder: Procedure Note Donotuseinterpreter, Image - 10/10/2024 [place] [id number] Magnetic Resonance Report Signed Patient: Joshua MadridMR#: [id number] : 2005Acct:[id number] Age/Sex: Date: 10/10/24 Loc: HO.MRI Attending Dr: Luna Waldron MD Ordering Physician: Luna Waldron MD Date of Service: 10/10/24 Procedure(s): MR head/brain wo con Accession Number(s): [id number] cc: Alanis Fuentes OFFICE COMMUNICATION PROFESSOR; Luna Waldron MD EXAMINATION: MR BRAIN WITHOUT [...] 10/10/24 1507 DD/ 1404 TD/TT: 10/10/24 1421 Line Welder: [facility] External Provider IMG MRI PROCEDURES Final Result * (ABNORMAL) Lipid Panel, Standard (05/04/2022 3:13 PM EDT) Cholesterol, Total 183(H) <170 mg/dL [facility] HDL Cholesterol 53 >45 mg/dL Ques t [employer] [facility] [facility] Triglycerides 92(H) <90 mg/dL [facility] LDL Cholesterol 110(H) <110 mg/dL (calc) [facility] Comment: LDL-C is now calculated using the Carlos-Evangelista calculation, which is a validated novel method providing better accuracy than the Friedewald equation in the estimation of LDL-C. Carlos SS et al. ALOK. 2013;310(19): 3500-5117 (http://education.Thinknum.Fresh Direct/faq/CIV801) Chol/HDLC Ratio 3.5 <5.0 (calc) [facility] Non-HDL Cholesterol 130(H) <120 mg/dL (calc) [facility] Comment: For patients with diabetes plus 1 major ASCVD risk factor, treating to a non-HDL-C goal of <100 mg/dL (LDL-C of <70 mg/dL) is considered a therapeutic option. Blood Venous blood specimen / Unknown 05/04/2022 3:13 PM EDT 05/04/2022 3:13 PM EDT Narrative [facility] - 05/05/2022 5:13 AM EDT FASTING:YES FASTING: YES Farrukh Wooten MD LAB BLOOD ORDERABLES Final Resu lt [facility] [address], [place] [address] [facility] [address] [place] [address] from Last 3 Months or Most Recently Relevant to Health Maintenance [place] C[place] STAND CHILD D[place]AL[place] Care Teams Disability Program Navigator Relationship Specialty Start Date End Date Liane Silva NP [address] [place] [address] PCP - General Family Medicine 12/08/22
--- OUTSIDE RECORDS SUMMARY | 2024-11-10 19:54 | XMS_ITS | Encounter Summary ---
Author Organization [employer] Address [address] [facility] 7t [place] [address] Care Team Providers Care Taxi Proprietor Name Role Phone Liane Silva NP Primary Care Provider [phone] Encounter Details Date Type Department Care Team ([facility] st Contact Info) Description 02/24/2023 Abstract [facility] MEDICINE [address] [place] [address] Liane Silva NP [address] [place] [address] Social History Tobacco Use Types Packs/Day Years [...] documented as of this encounter Care Teams Taxi Proprietor Relationship Specialty Start Date End Date Liane Silva NP [address] [place] [address] PCP - General Family Medicine 12/08/22 documented as of this encounter
[2024-11-10 19:59] LABS: Hematocrit 31.2 % (37.0-47.0); Hemoglobin 11.0 g/dl (12.0-16.0); Imm Gran Abs Auto 0.02 X10*3/uL (0.00-0.03); Imm Gran Pct Auto 0.3 % (0.0-0.4); Lymphocytes Absolute Auto 2.2 X10*3/uL (1.2-4.9); MANUAL DIFF FLAG NO; Mean Corpuscular HGB Conc 35.3 g/dl (31.0-35.0); Mean Corpuscular Hemoglobin 29.8 pg (27.0-33.0); Mean Corpuscular Volume 84.6 fL (80.0-98.0); NRBC Abs Auto 0.000 X10*3/uL (0.0-0.012); NRBC Pct Auto 0.0 /100WBC (0.0-0.2); Platelet Count 286 X10*3/uL (160-400); Red Blood Count 3.69 X10*6/uL (4.20-5.50); White Blood Count 7.8 X10*3/uL (4.8-10.8)
[2024-11-10 20:07] LABS: INTERNATIONAL NORM RATIO 0.9 (0.9-1.1); Prothrombin Time 10.7 SEC (10.9-12.4)
[2024-11-10 20:22] LABS: Alanine Aminotransferase 16 U/L (0-31); Albumin Level 4.5 g/dL (3.5-5.0); Alkaline Phosphatase 71 U/L (39-117); Anion Gap 11 (12-20); Aspartate Amino Transferase 23 U/L (5-31); Blood Urea Nitrogen 15 mg/dL (9-16); Calcium 9.4 mg/dL (8.4-10.2); Carbon Dioxide 25 mmol/L (22-29); Chloride 110 mmol/L (96-108); Creatinine Clr Calc Pharmacy 129.1; Estimated Glomerular Filt Rate > 60; Magnesium 1.9 mg/dL (1.6-2.6); Potassium 4.3 mmol/L (3.3-5.1); Sodium 142 mmol/L (135-145); Total Protein 7.2 g/dL (6.5-8.0)
[2024-11-10 20:29] LABS: Troponin-I High Sensitivity < 2.7 ng/L (<3.5-17.0)
[2024-11-10 21:02] LABS: D Dimer High Sensitivity < 150 NG/ML
[2024-11-10 21:33] VITALS: BP 104/72; PULSE 87; RESP 15; TEMP 36.6; O2SAT 100
== END 2024-11-10 21:34 | disposition home or self-care (01) ==
PROVIDERS: Registered Nurse Emergency; Emergency Provider Emergency Medicine
DX: R07.9 Chest pain, unspecified (principal); M06.9 Rheumatoid arthritis, unspecified; J45.20 Mild intermittent asthma, uncomplicated; Z79.899 Other long term (current) drug therapy; Z86.79 Personal history of other diseases of the circulatory system
CPT/HCPCS: 36415; 71046; 80053; 83735; 84443; 84484; 84702; 85025; 85379; 85610; 93005; 96372; 99284; 99285; J1885

== ENCOUNTER → 2024-11-10 19:21 | Outpatient (BNV) | payer MEDICAID, SELFPAY | PROVIDERS: Emergency Provider Emergency Medicine; Visit Provider Internal Medicine Cardiovascular Disease | DX: R07.9 Chest pain, unspecified (principal) | CPT/HCPCS: 93010 ==

== ENCOUNTER → 2024-11-10 20:48 | Outpatient (BNV) | payer MEDICAID, SELFPAY | PROVIDERS: Emergency Provider Emergency Medicine; Visit Provider Student in an Organized Health Care Education/Training Program | DX: R07.89 Other chest pain (principal) | CPT/HCPCS: 71046 ==

== ENCOUNTER → 2024-11-21 14:24 | Outpatient (BNVA) | payer MEDICAID, SELFPAY | PROVIDERS: PCP Nurse Practitioner Family; Visit Provider Psychiatry & Neurology Neurology | DX: Z71.2 Person consulting for explanation of examination or test findings (principal); G43.011 Migraine without aura, intractable, with status migrainosus; M47.812 Spondylosis without myelopathy or radiculopathy, cervical region | CPT/HCPCS: 99212 ==

== ENCOUNTER → 2024-11-21 14:24 | Outpatient (AMB) | payer MEDICAID, SELFPAY ==
--- NOTE | 2024-11-21 14:40 | MHC.OFFVIS ---
Intake Visit Reasons: results Allergies No Known Allergies (No Known Allergies*) Allergy (Verified 11/10/24 19:29) HPI Comments Details: The patient is a 19-year-old female presenting with neck pain and migraine. She reports a long-standing history of migraines, which have become progressively more frequent and intense, occurring almost daily. The pain originates from the neck and radiates upward to the face. Associated symptoms include nausea, sensitivity to environmental stimuli, dizziness, and unilateral facial pain. The intensity of her migraines impedes daily activities, and she struggles with head movement due to exacerbated symptoms. Her attempts at relief using Excedrin have been largely ineffective. Cervical spine imaging has shown vertebral misalignment, prompting consideration for further diagnostic work-up. Today, she is presenting with neck pain and migraine. She reports a long-standing history of migraines, which have become progressively more frequent and intense, occurring almost daily. The pain originates from the neck and radiates upward to the face. Associated symptoms include nausea, sensitivity to environmental stimuli, dizziness, and unilateral facial pain. The intensity of her migraines impedes daily activities, and she struggles with head movement due to exacerbated symptoms. Her attempts at relief using Excedrin have been largely ineffective. Cervical spine imaging has shown vertebral misalignment, prompting consideration for further diagnostic work-up. [facility] Medical History Cervicogenic headache Migraine without aura Mild intermittent asthma without complication Scoliosis Polyarticular juvenile idiopathic arthritis Obesity HLD (hyperlipidemia) Migraine Rheumatoid arthritis Family History Father No problems noted. Mother No problems noted. Social History Patient Tobacco Use Status: Never used Tobacco Review of Systems Const Details: The patient is a 19-year-old female presenting with neck pain and migraine. - Onset of migraines has been several years, worsening recently to almost daily occurrences. - Migraines originate from neck pain, radiating upwards into the face. - Symptoms include nausea, heightened light, sound, and motion sensitivity, and facial pain. - Pain severity disrupts daily routines and persists throughout the day. - Excedrin provides minimal temporary relief. - Dizziness accompanies migraines when moving the neck. - No documented history of MRI; confirms cervical spine X-ray shows misalignment. Physical Exam Neuro Other: Mental Status: Alert and oriented to person, place, and time. Normal attention. Normal spontaneous speech, fluency, and comprehension. No obvious issues with mood and memory. Affect is appropriate. Cranial Nerves: CN II: Visual salcedo full to confrontation, visual acuity intact. CN III, IV, : Pupils equal, round, reactive to light and accommodation. Extraocular movements are normal. CN V: Facial sensation is normal. CN VII: Facial movements symmetrical. CN VIII: Hearing intact to bedside conversation is normal. CN IX, X: Palate elevates symmetrically. CN XI: Shoulder shrug and head turn symmetrical. CN XII: Tongue midline without atrophy or fasciculations. Extrapyramidal: Full facial expressions and blinking. No rigidity. Movements are appropriate with no tremor or abnormality. Speech: Normal; no dysarthria or tremor. Assessment & Plan Assessment & Plan (1) Migraine without aura: Comment: MRI brain WO at [facility] in Sep 2024: WNL Code(s): G43.009 - Migraine without aura, not intractable, without status migrainosus Category: Medical Qualifiers: Status migrainosus presence: with status migrainosus Intractability: intractable Qualified Code(s): G43.011 - Migraine without aura, intractable, with status migrainosus (2) Cervical spondylosis: Code(s): M47.812 - Spondylosis without myelopathy or radiculopathy, cervical region Category: Medical Plan 19 years old woman with chronic migraine without aura type of headaches. She was educated about migraine type of headaches and its management including controlling and treatment medicines. She has not tried any controlling medicine and was having almost daily headache. I talked about topiramate and its benefit and side-effects. We would start with 25 mg a day and if needed to a day. Follow would be in 4 weeks time. Medications: New topiramate 25 mg PO BID 60 tabs 0RF Coding Level of Care Code Est Pt Level 4 (17434) Diagnoses Intractable migraine without aura and with status migrainosus G43.011 Status migrainosus presence: with status migrainosus Intractability: intractable Cervical spondylosis M47.812
== END ==
PROVIDERS: PCP Nurse Practitioner Family; Referring Provider Nurse Practitioner Family; Visit Provider Psychiatry & Neurology Neurology
DX: G43.011 Migraine without aura, intractable, with status migrainosus (principal); M47.812 Spondylosis without myelopathy or radiculopathy, cervical region
CPT/HCPCS: 99214